=== PATIENT | female | born 1985 | race Caucasian/White ===

== ENCOUNTER 2022-10-30 08:24 | Outpatient (OUT) | payer OTHER, SELFPAY ==
--- NOTE | 2022-10-30 | XR_ITS ---
The [address] [address] Patient Name: MARIA VICTORIA LI MRN: [id number] date: 1985 Sex: F Assigned Patient Location: [facility] Current Patient Location: [facility] Accession/Order Number: [id number] Exam Date: 10/30/2022 08:35 Report Date: 10/30/2022 13:24 At the request of: ANNABELLE ANDUJAR Procedure: XR abdomen 1V EXAMINATION: XR abdomen 1V HISTORY: Kidney Stone N20.0 ; blood in urine COMPARISON: CT abdomen pelvis 08/24/2022 FINDINGS: KIDNEY/URETER - RIGHT: No visible renal or ureteral calcifications. KIDNEY/URETER - LEFT: 5 mm stone within inferior pole of kidney with several adjacent tiny calcifications. PELVIS: No visible ureteral stones. Stable pelvic calcifications favoring phleboliths. BOWEL: No abnormal dilation or deviation. BONES: No acute abnormality. OTHER: Negative. No abnormal gaseous collections. XR/XR abdomen 1V IMPRESSION: 1. Left nephrolithiasis. Electronically authenticated by: TAMIA BAPTISTE Date: 10/30/2022 13:24
== END 2022-10-30 08:25 | disposition home or self-care (01) ==
LOC: RAD 08:27
PROVIDERS: PCP Family Medicine; Visit Provider Urology
DX: N20.0 Calculus of kidney (principal); Z84.1 Family history of disorders of kidney and ureter
CPT/HCPCS: 74018

== ENCOUNTER 2022-10-31 14:19 | Outpatient (OUT) | payer OTHER, SELFPAY ==
[2022-10-31 15:03] LABS: Basophils Percent Auto 0.8 % (0.2-2.0); Eosinophils Absolute Auto 0.1 10^3/uL (0.0-0.7); Eosinophils Percent Auto 1.2 % (0.9-7.0); Hematocrit 39.1 % (36.0-48.0); Immature Granulocytes Abs Auto 0.03 10^3/uL (0.00-0.03); Immature Granulocytes Pct Auto 0.6 % (0.0-0.5); Lymphocytes Percent Auto 38.8 % (20.5-60.0); Mean Corpuscular HGB Conc 33.2 g/dL (29.9-35.2); Mean Corpuscular Hemoglobin 29.8 pg (26.7-34.0); Mean Corpuscular Volume 89.7 fL (81.0-99.0); Mean Platelet Volume 9.7 fL (9.5-13.5); Monocytes Absolute Auto 0.6 10^3/uL (0.3-0.8); Neutrophils Absolute Auto 2.5 10^3/uL (1.4-6.5); Neutrophils Percent Auto 47.6 % (43.0-75.0); Platelet Count 275 10^3/uL (150-450); Red Blood Count 4.36 10^6/uL (4.20-5.40); Red Cell Distribution Width 13.2 % (11.0-15.0); White Blood Count 5.2 10^3/uL (4.0-11.0)
[2022-10-31 15:14] LABS: Anion Gap 14.1; BUN Creatinine Ratio 26.2; Calcium 9.5 mg/dL (8.5-10.1); Carbon Dioxide 23.9 mmol/L (21.0-32.0); Chloride 105 mmol/L (98-107); Estimated GFR (African America >60 (>=60); Estimated GFR (Non-African Ame >60 (>=60); Glucose 76 mg/dL (74-106); Sodium 139 mmol/L (136-145)
[2022-10-31 15:15] LABS: INR 0.98; Partial Thromboplastin Time 29.6 sec (22.3-36.2); Prothrombin Time 10.4 sec (9.0-11.6)
[2022-10-31 15:34] LABS: HCG Qualitative NEGATIVE (NEGATIVE)
== END 2022-10-31 14:20 | disposition home or self-care (01) ==
LOC: PST 14:20
PROVIDERS: PCP Family Medicine; Visit Provider Urology
DX: Z01.812 Encounter for preprocedural laboratory examination (principal); N20.0 Calculus of kidney; G43.909 Migraine, unspecified, not intractable, without status migrainosus
CPT/HCPCS: 36415; 80048; 84703; 85025; 85610; 85730

== ENCOUNTER 2022-11-01 07:01 | Day surgery (SDC) | payer OTHER, SELFPAY ==
[2022-10-31 14:35] VITALS: BP 131/86; PULSE 72; RESP 14; TEMP 36.6; O2SAT 99; BMI 26.6
[2022-11-01] VITALS (10 sets, daily range): BP systolic 110–144; BP diastolic 64–88; PULSE 61–92; RESP 10–20; TEMP 36.4–36.6; O2SAT 94–99; BMI 27.0
[2022-11-01] MEDS: LACTATED RINGER'S SOLUTION 1,000 ML 50 ML IV (07:31)
[2022-11-01] MEDS: CEFAZOLIN SODIUM/DEXTROSE,ISO 1 GM/50 ML IV.SOLN IV (08:09)
[2022-11-01] MEDS: IOHEXOL 300 MG/ML - 50 ML BTL IV (08:30)
--- NOTE | 2022-11-01 08:53 | P.URON_ITS ---
Urology Surgery Operative Note Operative Note Procedure Date: 11/01/22 Time Out Performed: yes Pre-op Diagnosis: #1. Left nephrolithiasis. #2. Left flank pain Post-op Diagnosis: same plus left ureteral stenosis Procedures performed: #1. Left ESWL. #2. Cystoscopy. #3. Left retrograde pyelogram. #4. Left rigid ureteral dilation. #5. Left ureteroscopy. #6. Lasix and of 6 [place] variable length left ureteral stent Anesthesia: other (Gen. by LMA) Primary Surgeon: Celestino Serrano Complications: none Estimated blood loss (mL): 10 Findings: #1. 2, left renal calculi. #2. Distal left ureteral stenosis. Specimens: none Drains: none Indications for Procedures: this lady has 2, left renal calculi which are nonobstructing. She also has left flank pain for several months. Her CAT scan shows no evidence of any left hydroureter or hydroureteronephrosis or uretterolithiasis. She now presents for left renal ESWL and left ureteroscopy and possible stone manipulation and stent placement. She has signed an informed consent for all of these procedures after all of the risks were explained to her in great detail. Some of these risks include bleeding, perinephric hematoma, infection and anesthesia to name a few. Detailed description of Procedure: the patient was brought to the operating room and placed on the Siemens electromagnetic lithotripsy treatment table in the supine position. Timeout was done by all parties in the room. We all agreed upon the patient's identification and the planned procedures for this patient. Gen. anesthesia was administered via LMA. She was then repositioned into the modified dorsal lithotomy position. Alll pressure points were satisfactorily padded. Genitalia were sterilely prepped and draped in the usual fashion. At this time we brought the treatment head to her left flank. We then did fluoroscopy down the course of her left ureter and found no evidence of any stone. We then lined up the larger of the 2 stones within the kidney into the crosshairs. We then began applying shocks at power level II.0 and increased to a maximum power level of 3.5. Intermittent flu oroscopy showed the stone cracked up very well. We applied a total of 1500 shocks to this 1st stone. We then lined up the smaller lower pole stone in the crosshairs. We similarly applied shocks. This also fragmented well. After applying a total of 3000 shocks to the left renal unit this part of the procedure was terminated. I then started by passing a 22 [place] Olympus cystoscope per urethra and into the bladder. Panendoscopy in the bladder showed no evidence of any tumors or stones. There was some bloody urine E flexing from the left ureter as expected. I then passed a 6 [place] open-ended catheter through the scope and cannulated the left ureter. I injected contrast in a retrograde manner. This showed no evidence of any filling defects within the ureter. The kidney illuminated well and filling defects representing tiny pieces of stone were noted. I then removed the catheter and then passed a Glidewire through the scope and in the ureter and up to the kidney. I then used an 8 and 10 [place] rigid dilator to dilate the distal ureter. The distal ureter was stiff. After dilation we had E flux of cloudy debris in the bladder. I then removed the cystoscope and then passed a flexible ureteroscope over the wire and ascended up the ureter. As I was going up the ureter I did not see any tumors or stones. There was quite a bit of inflammatory debris coming down towards the beak of the scope. The ureteroscope was then removed. Because of the distal ureteral stenosis and her persistent left flank pain, I elected to place a stent.I then backloaded the cystoscope over the wire and passed it into the bladder. I then slid a 6 [place] variable length ureteral stent over the wire up into the kidney and remove the wire. There were good curls in the kidney and in the bladder. The bladder was drained of its contents and the scope was then removed. She was then transferred to a [facility] bed and wheeled to PACU in stable condition. She'll be discharged to home later today with a prescription for Keflex 500 mg daily #14 and Vesicare 10 mg daily #14.
--- NOTE | 2022-11-01 10:16 | PC.NURSE ---
Up to bathroom; gait steady. Voided 100cc bloody urine; strained and negative for calculi; c/o lower abdominal stent pain
== END 2022-11-01 10:05 | disposition home or self-care (01) ==
PROVIDERS: PCP Family Medicine; Visit Provider Urology
PROC: (CPT 50590; principal; 2022-11-01 08:20)
DX: N20.0 Calculus of kidney (principal); Q62.10 Congenital occlusion of ureter, unspecified; Z87.440 Personal history of urinary (tract) infections; Z98.51 Tubal ligation status
CPT/HCPCS: 50590; 52332; 52344; C1874; J2704; Q9967

== ENCOUNTER 2022-11-08 18:27 | Outpatient (OUT) | payer OTHER, SELFPAY ==
--- NOTE | 2022-11-08 | XR_ITS ---
The [address] [address] Patient Name: MARIA VICTORIA LI MRN: [id number] date: 1985 Sex: F Assigned Patient Location: [facility] Current Patient Location: Accession/Order Number: [id number] Exam Date: 11/08/2022 18:30 Report Date: 11/09/2022 07:39 At the request of: ANNABELLE ANDUJAR Procedure: XR abdomen 1V EXAMINATION: XR abdomen 1V HISTORY: kidney stones COMPARISON: No relevant comparison available. FINDINGS: KIDNEY/URETER - RIGHT: No visible renal or ureteral calcifications. KIDNEY/URETER - LEFT: Left double-J ureteral stent in normal position. Previously noted nephrolith is not definitively seen PELVIS: No visible ureteral calcifications. Any visible calcifications favor phleboliths. BOWEL: No abnormal dilation or deviation. BONES: No acute abnormality. OTHER: Negative. No abnormal gaseous collections. XR/XR abdomen 1V IMPRESSION: Left ureteral stent Electronically authenticated by: ABDIRASHID CROOK Date: 11/09/2022 07:39
== END 2022-11-08 18:28 | disposition home or self-care (01) ==
LOC: RAD 18:27
PROVIDERS: PCP Family Medicine; Visit Provider Urology
DX: N20.0 Calculus of kidney (principal)
CPT/HCPCS: 74018

== ENCOUNTER 2023-03-09 12:15 | Outpatient (OUT) | payer OTHER, SELFPAY ==
[2023-03-09 12:34] LABS: Basophils Percent Auto 0.7 % (0.2-2.0); Eosinophils Absolute Auto 0.1 10^3/uL (0.0-0.7); Hemoglobin 12.7 g/dL (12.0-16.0); Immature Granulocytes Abs Auto 0.01 10^3/uL (0.00-0.03); Immature Granulocytes Pct Auto 0.2 % (0.0-0.5); Lymphocytes Absolute Auto 2.2 10^3/uL (1.2-3.8); Lymphocytes Percent Auto 36.2 % (20.5-60.0); Mean Corpuscular HGB Conc 33.4 g/dL (29.9-35.2); Mean Corpuscular Hemoglobin 30.1 pg (26.7-34.0); Mean Platelet Volume 9.6 fL (9.5-13.5); Monocytes Absolute Auto 0.4 10^3/uL (0.3-0.8); Monocytes Percent Auto 7.2 % (1.7-12.0); Neutrophils Absolute Auto 3.2 10^3/uL (1.4-6.5); Neutrophils Percent Auto 53.7 % (43.0-75.0); Platelet Count 309 10^3/uL (150-450); Red Blood Count 4.22 10^6/uL (4.20-5.40); Red Cell Distribution Width 13.5 % (11.0-15.0)
[2023-03-09 13:17] LABS: Alanine Aminotransferase 19 U/L (14-59); Albumin Globulin Ratio 1.2; Albumin Level 4.1 g/dL (3.4-5.0); Alkaline Phosphatase 56 U/L (46-116); Anion Gap 14.2; Aspartate Amino Transferase 10 U/L (15-37); BUN Creatinine Ratio 12.9; Bilirubin Total 0.6 mg/dL (0.2-1.0); Calcium 8.4 mg/dL (8.5-10.1); Carbon Dioxide 25.3 mmol/L (21.0-32.0); Chloride 106 mmol/L (98-107); Chol HDL Ratio 3.3; Cholesterol 178 mg/dL (<=200); Estimated GFR (African America >60 (>=60); Estimated GFR (Non-African Ame >60 (>=60); Free T3 2.52 pg/mL (2.18-3.98); Globulin 3.3 g/dL; Glucose 90 mg/dL (74-106); HDL Cholesterol 54 mg/dL (40-60); LDL Cholesterol Calculated 111.8 mg/dL; Potassium 3.5 mmol/L (3.5-5.1); Sodium 142 mmol/L (136-145); Thyroid Stimulating Hormone 1.341 uIU/mL (0.358-3.740); Total Protein 7.4 g/dL (6.4-8.2); Triglycerides 61 mg/dL (<=150); Uric Acid 3.4 mg/dL (2.6-6.0); VLDL CHOLESTEROL 12.2 mg/dL
[2023-03-09 13:21] LABS: Free T4 0.83 ng/dL (0.76-1.46)
== END 2023-03-09 12:16 | disposition home or self-care (01) ==
LOC: LAB 12:18
PROVIDERS: PCP Family Medicine; Visit Provider Family Medicine
DX: R21 Rash and other nonspecific skin eruption (principal); H53.2 Diplopia; K58.9 Irritable bowel syndrome, unspecified; E55.9 Vitamin D deficiency, unspecified; E87.6 Hypokalemia
CPT/HCPCS: 36415; 80053; 80061; 82306; 84439; 84443; 84481; 84550; 85025

== ENCOUNTER 2023-09-21 11:05 | Outpatient (OUT) | payer OTHER, SELFPAY ==
--- OUTSIDE RECORDS SUMMARY | 2023-09-21 11:08 | XMS_ITS | CCD ---
Author Organization [facility] CliniSyma Care Team Providers Care Panel Maker Name Role Phone Mavis Martínez Unavailable Unavailable Karen Harmon V Unavailable Unavailable Karen Harmon V Unavailable [phone] Unavailable Unavailable Akila, Keyana Unavailable Unavailable Unavailable Ms. JESÚS LUNG STUART Attending Unavailable Faustino, Dr. Jones Primary Care UnavailMs. JACQUIE Greer Referring Unavailable Dr. MAVIS MARTÍNEZ Referring Magalie vailable TANYA, Dr. MAVIS DEVRIES Attending Magalie vailable Faustino, Dr. Jones Primary Care UnavailKena Zhu Unavailable KELLE Snider Attending Provider [phone] AKILA, KEYANA Consulting Unavailable DR CRISTI MARTINEZ Primary Care Unavailable AKILA, KEYANA Admitting Unavailable KEYANA WILBURN Attending Unavailable DR CRISTI MARTINEZ Primary Care Unavailable KIEPERT, ITALIA Admitting Unavailable ELIZABETHEPERTITALIA Attending Unavailable ASAT, ITALIA Consulting Unavailable MARTINEZDR COLIN Primary Care Unavailable KIEPERT, ITALIA Admitting Unavailable KIEPERT, ITALIA Attending Unavailable KIEPERT, ITALIA Consulting Unavailable STEVEN GRECO Admitting Unavailable DR CRISTI MARTINEZ Primary Care Unavailable STEVEN GRECO Attending Unavailable STEVEN GRECO Consulting Unavailable ARIANA, MARITZA Consulting Unavailable Dai Vaughn Unavailable NO FAMILY, PHYSICIAN Primary Care Provider Unava ilable TOM Vaughn Attending Provider [phone] CRISTI MARTINEZ Primary Care Physician [phone] TOM Vaughn Attending Provider NO FAMILY, PHYSICIAN Primary Care Provider Unava ilable SEBASTIAN Gustafson Attending Provider [phone] Ella Gustafson Unavailable Kena Snider Attending Unavailable NO FAMILY, PHYSICIAN Primary Care Unavailable Kena Snider Admitting Unavailable NO FAMILY, PHYSICIAN Primary Care Unavailable Dai Vaughn Admitting Unavailable Dai Vaughn Attending Unavailable Ella Gustafson Admitting Unavailable Ella Gustafson Attending Unavailable Faustino Evans MD, Jennifer Primary Care Provider MAVIS MARTÍNEZ Attending Unavailable FAUSTINO Evans, KAREN Primary Care Unavailable MAVIS MARTÍNEZ Attending Unavailable MAVIS MARTÍNEZ Referring Unavailable HARMON V, KAREN Primary Care Unavailable MARTINEZ, CRISTI Cavazos Attending Unavailable PETITTI, SILVESTRE Cavazos Attending Unavailable MARTINEZ, CRISTI A Referring Unavailable PETITTI, SILVESTRE A Attending Unavailable SERRANO, Celestino R Attending Unavailable KELLE ALVARADO Attending UnavailSTEVEN Mckinnno Referring Unavailable SERRANO, Celestino R Attending Unavailable SERRANO, Celestino R Attending Unavailable SERRANO, Celestino R Referring Unavailable SERRANO, Celestino R Admitting Unavailable SERRANO, Celestino R Referring Unavailable SERRANO, Celestino R Attending Unavailable SERRANO, Celestino R Attending Unavailable SERRANO, Celestino R Attending Unavailable Allergies Allergy Classification Reported Allergen(s) Allergy Type Date of Onset Reaction(s) Facility Opioid Agonists (2 sources) Morphine; Translations: [Morphine Sulfate (Concentrate) SOLN] Drug Allergy OR-Neixkixzd-Ve nicolas 170 DO Work Phone: (14 sources) Morphine; Translations: [Morphine Sulfate (Concentrate) SOLN] Drug Allergy 3 anaphylaxis, Weal (disorder), Unknown [facility] (7 sources) Latex Exam Gloves MISC; Translations: [Latex Exam Gloves MISC] Allergy to drug (finding) OB-Iqsdzeefk-Hv nicolas 170 DO Work Phone: (5 sources) Latex rubber gloves Drug allergy [facility] [employer] Other (11 sources) Latex; Translations: [latex] Allergy to substance 6 Weal (disorder), Unknown [facility] (7 sources) Morphine; Translations: [morphine] Drug Allergy 6 Hives [facility] Medications Current Medications Medication Drug Class(es) Dates Sig (Normalized) Sig (Original) cephalexin 250 mg oral capsule (3 sources) Cephalosporin Antibacterial Start: 06-26-2019 take 250 mg by mouth every six hours Cephalexin Active 250 MG PO Q6H 28 7 June 26, 2019 1:00am Norgestimate-Ethi nyl Estradiol (5 sources) Progestin, Estrogen Start: 06-26-2019 Norgestimate-Ethi nyl Estradiol Active TABLET June 26, 2019 1:00am End: 01-31-2023 norgestimate-ethinyl estradi oL (Ortho Tri-Cyclen,Trinessa) 0.18/0.215/0.25 mg-35 mcg (28) tablet Take by mouth. 0 01/31/2023 Discontinued (Therapy completed) TriNessa (28) TA BS Refills: 0 Active 1 ml galcanezumab-gnlm 120 m g/ml auto-injector (5 sources) Start: 05-06-2023 Emgality Prefi lled Pen 120 mg/mL subcutaneous solution Refills(s) 0 Start Date: 05/06/23 Status: Ordered Start: 01-31-2023 galcanezumab ( Emgality Pen) 120 mg/mL auto-injector Indications: Chronic migraine without aura, with intractable migraine, so stated, with status migrainosus Inject 1 Syringe (120 mg) under the skin every 30 (thirty) days. 1 mL 10 01/31/2023 Active Start: 03-13-2022 End: 01-31-2023 inject 120 mg by subcutaneous injection every month Emgality 120 MG/ML Subcutaneous Solution Auto-injector Inject 120 mg (1 pen) under the skin Once a Month as directed. Quantity: 1 Refills: 11 Ordered: 13-Mar-2022 Jesús SPINNING LATHE OPERATOR HYDRAULIC-OPERATIONAL RISK CONSULTANT, Lung Start : 13-Mar-2022 Active Monthly dose, loading dose sent separately. Doxepin, topiramate failed. ibuprofen 800 mg oral tablet (6 sources) Nonsteroidal Anti-inflammatory Drug Start: 06-26-2019 Ibuprofen Active 800 MG PO every 6 to 8 hours June 26, 2019 1:00am Start: 03-05-2018 End: 06-26-2019 take 800 mg by mouth three times daily Ibuprofen Discontinued 800 MG PO Three times daily March 05, 2018 1:00am June 26, 2019 10:09am nitrofurantoin, macrocrystals 25 mg / nitrofurantoin, monohydrate 75 mg oral capsule (3 sources) Nitrofuran Antibacterial Start: 12-06-2022 take 1 capsule by mouth every twelve hours Macrobid 100 MG 1 capsule with food Orally every 12 hrs for 5 days Nov, Active Start: 08-16-2022 take 1 capsule by mo [facility] every twelve hours Macrobid 100 MG 1 capsule with food Orally every 12 hrs for 7 day(s) Jul, Active ondansetron 4 mg oral tablet (11 sources) Serotonin-3 Receptor Antagonist Start: 10-29-2019 End: 01-31-2023 take 1 tablet by mouth every eight hours as needed for nausea and nausea ondansetron (Zofran) 4 mg tablet Indications: Nausea Take 1 tablet (4 mg) by mouth every 8 hours if needed for nausea. 20 tablet 3 01/31/2023 Active Start: 03-05-2018 End: 06-26-2019 take 1 tablet by mouth every eight hours Ondansetron (Zofran Odt) 4 mg tablet,disintegrating Discontinued 4 MG PO Q8H March 05, 2018 1:00am June 26, 2019 10:09am phenazopyridine hydrochloride 200 mg oral tablet (6 sources) Start: 10-13-2022 take 1 tablet by mouth every eight hours Pyridium 200 MG 1 tablet after meals Orally Three times a day for 2 day(s) Nov, Active Start: 08-16-2022 take 1 tablet by bettina every eight hours Pyridium 200 MG 1 tablet after meals Orally Three times a day for 2 day(s) Jul, Active rizatriptan 10 mg oral tablet (10 sources) Serotonin-1b and Serotonin-1d Receptor Agonist Start: 10-29-2019 End: 01-31-2023 take 1 tablet by mouth once as needed, then take 1 tablet by mouth every two hours as needed, then take 3 tablets by mouth every twenty-four hours as needed, then take 1 tablet by mouth every two hours as needed, then take 3 tablets by mouth every twenty-four hours as needed rizatriptan (Maxalt) 10 mg tablet Indications: Chronic migraine without aura, with intractable migraine, so stated, with status migrainosus Take 1 tablet (10 mg) by mouth 1 time if needed for migraine (TAKE 1 TABLET BY MOUTH AT ONSET OF HEADACHE. MAY REPEAT EVERY 2 HOURS NEEDED. MAXIMUM 3 TABLETS IN 24 HOURS). TAKE 1 TABLET BY MOUTH AT ONSET OF HEADACHE. MAY REPEAT EVERY 2 HOURS NEEDED. MAXIMUM 3 TABLETS IN 24 HOURS 9 tablet 6 01/31/2023 Active Start: 10-29-2019 take 1 tablet by bettina th every two hours as needed, then take 3 tablets by mouth every twenty-four hours as needed Rizatriptan Benzoate 10 MG Oral Tablet TAKE 1 TABLET BY MOUTH AT ONSET OF HEADACHE. MAY REPEAT EVERY 2 HOURS NEEDED. MAXIMUM 3 TABLETS IN 24 HOURS Quantity: 9 Refills: 6 Ordered: 01-Mar-2022 Mavis Martínez MD Start : 29-Oct-2019 Active topiramate 25 mg oral tablet (20 sources) Start: 06-10-2023 End: 07-01-2023 take 3 tablets by mouth once daily at bedtime, then take 2 tablets by mouth once daily at bedtime, then take 1 tablet by mouth once daily at bedtime topiramate (Topamax) 25 mg tablet Indications: Chronic migraine without aura, with intractable migraine, so stated, with status migrainosus Take 3 tablets (75 mg) by mouth once daily at bedtime for 7 days, THEN 2 tablets (50 mg) once daily at bedtime for 7 days, THEN 1 tablet (25 mg) once daily at bedtime for 7 days. 42 tablet 0 06/10/2023 07/01/2023 Active Start: 01-31-2023 End: 06-10-2023 take 1 tablet by mouth once daily at bedtime topiramate (Topamax) 100 mg tablet Indications: Chronic migraine without aura, with intractable migraine, so stated, with status migrainosus Take 1 tablet (100 mg) by mouth once daily at bedtime. 90 tablet 1 06/10/2023 06/10/2023 Discontinued (Reorder) Start: 10-29-2022 take 1 mg by mouth twice daily Topamax 100 mg Tab mg tab(s), Oral, BID, Refills(s) 0 Start Date: 10/29/22 Status: Ordered Start: 11-03-2020 take 1 tablet by bettina th at bedtime, then take 2 tablets by mouth at bedtime, then take 3 tablets by mouth at bedtime, then take 4 tablets by mouth at bedtime Topiramate 25 MG Oral Tablet i pill at hs x 1 week then 2 at hs for 1 week then 3 at hs for 1 week then 4 pills at hs Quantity: 120 Refills: 6 Ordered: 03-Nov-2020 Mavis Martínez MD Start : 03-Nov-2020 Active add to 100 mg to titrate up to 200 Start: 10-29-2019 End: 01-31-2023 take 2 tablets by mouth once daily at bedtime topiramate (Topamax) 50 mg tablet Take 2 tablets (100 mg) by mouth once daily at bedtime. 0 10/29/2019 01/31/2023 Discontinued (Reorder) Start: 10-29-2019 take 1 tablet by bettina th at bedtime Topiramate 100 MG Oral Tablet TAKE 1 TABLET AT BEDTIME. Quantity: 30 Refills: 6 Ordered: 02-Dec-2020 Mavis Martínez MD Start : 29-Oct-2019 Active Start: 10-29-2019 take 3 tablets by mo uth at bedtime Topiramate 50 MG Oral Tablet Take 3 tablets at bedtime Quantity: 270 Refills: 3 Ordered: 01-Mar-2022 Mavis Martínez MD Start : 29-Oct-2019 Active Start: 10-29-2019 take 1 tablet by bettina th at bedtime, then take 2 tablets by mouth at bedtime, then take 3 tablets by mouth at bedtime, then take 4 tablets by mouth at bedtime Topiramate 25 MG Oral Tablet i pill at hs x 1 week then 2 at hs for 1 week then 3 at hs for 1 week then 4 pills at hs Quantity: 120 Refills: 6 Mavis Martínez MD Start : 29-Oct-2019 Active traMADol hydrochloride 50 mg oral tablet (3 sources) Opioid Agonist Start: 06-26-2019 Tramadol (Ultr am) 50 mg tablet Active 50 MG PO every 6 to 8 hours 10 June 26, 2019 1:00am Completed/Discontinued Medications Medication Drug Class(es) Dates Sig (Normalized) Sig (Original) acetaminophen 325 mg / butalbital 50 mg / caffeine 40 mg oral tablet (2 sources) Barbiturate, Central Nervous System Stimulant, Methylxanthine Mkviwccmsq-JSPS-M affeine 50-325-40 MG take 1 tablet every 4 to 6 hours if needed for headache MAX OF 2 DAYS PER WEEK Oral for 30 Days Not-Taking acetaminophen 325 mg / HYDROcodone bitartrate 5 mg oral tablet (3 sources) Opioid Agonist Start: 03-05-2018 End: 06-26-2019 take 1 tablet by mouth every six hours Hydrocodone-Aceta minophen ([place]) 5-325 mg tablet Discontinued 1 TAB PO Q6H 15 4 March 05, 2018 June 26, 2019 10:09am amoxicillin 875 mg / clavulanate 125 mg oral tablet (1 source) Penicillin-class Antibacterial Start: 04-07-2021 Amoxicillin-Pot Clavulanate 875-125 MG Oral Tablet Quantity: 20 Refills: 0 Ordered: 07-Apr-2021 DO Start : 07-Apr-2021 Complete benzonatate 200 mg oral capsule (1 source) Non-narcotic Antitussive Start: 04-07-2021 take 1 capsule by mouth three times daily Benzonatate 200 MG Oral Capsule TAKE ONE CAPSULE BY MOUTH THREE TIMES A DAY FOR 14 DAYS Quantity: 42 Refills: 0 Ordered: 07-Apr-2021 DO Start : 07-Apr-2021 Complete ciprofloxacin 500 mg oral tablet (3 sources) Quinolone Antimicrobial Start: 10-13-2022 take 1 tablet by mouth every twelve hours Cipro 500 MG 1 tablet Orally every 12 hrs for 7 days Sep, Not-Taking magnesium oxide 400 mg oral tablet (4 sources) Start: 10-29-2022 End: 06-10-2023 magnesium oxide (Mag-Ox) 400 mg (241.3 mg magnesium) tablet Take by mouth. 0 10/29/2022 06/10/2023 Discontinued (Med List Cleanup) Start: 10-29-2022 take 1 mg by mouth once daily magnesium oxide 400 mg oral capsule mg cap(s), Oral, Daily, Refills(s) 0 Start Date: 10/29/22 Status: Ordered methylPREDNISolone 4 MG Oral Tablet Therapy Pack (1 source) Start: 12-18-2021 methylPREDNISo lone 4 MG Oral Tablet Therapy Pack Quantity: 21 Refills: 0 Ordered: 18-Dec-2021 DO Start : 18-Dec-2021 Complete 0.5 ml SUMAtriptan 12 mg/ml cartridge (9 sources) Serotonin-1b and Serotonin-1d Receptor Agonist Start: 10-29-2019 End: 06-10-2023 SUMAtriptan (Imitrex) 6 mg/0.5 mL injection Inject under the skin once daily as needed. 1 to 2 sq qd prn 0 10/29/2019 06/10/2023 Discontinued (Med List Cleanup) Start: 10-29-2019 SUMAtriptan Wells ccinate 6 MG/0.5ML Subcutaneous Solution Auto-injector 1 to 2 sq qd prn Quantity: 6 Refills: 3 Ordered: 28-Feb-2021 Jesús SPINNING LATHE OPERATOR HYDRAULIC-OPERATIONAL RISK CONSULTANT, Lung Start : 29-Oct-2019 Active triamcinolone acetonide 1 mg/ml topical cream (1 source) Corticosteroid Start: 12-18-2021 Triamcinolone Acetonide 0.1 % External Cream Quantity: 60 Refills: 0 Ordered: 18-Dec-2021 DO Start : 18-Dec-2021 Active TriNessa (28) TABS (4 sources) End: 03-01-2022 TriNessa (28) TABS Quantity: 0 Refills: 0 Ordered: 01-Mar-2022 DO End : 01-Mar-2022 Complete TriNessa (28) TA BS Quantity: 0 Refills: 0 Ordered: 29-Oct-2019 DO Active Problems Active Problems Problem Classification Problem Date Documented Da te Episodic/Chronic Abdominal pain (9 sources) Abdominal pain; Translations: [Abdominal pain, unspecified site] Onset: 08-24-2022 Episodic Calculus of urinary tract (4 sources) Kidney stone; Translations: [Calculus of kidney] Onset: 10-29-2022 Episodic Fluid and electrolyte disorders (2 sources) Acidosis; Translations: [Other disorders of electrolyte and fluid balance, not elsewhere classified] Episodic Headache; including migraine (20 sources) Refractory migraine without aura; Translations: [Migraine] Onset: 02-24-2022 Chronic Other gastrointestinal disorders (5 sources) Diarrhea; Translations: [Diarrhea] Episodic Other nutritional; endocrine; and metabolic disorders (4 sources) Hypomagnesemia; Translations: [Hypomagnesemia] Chronic Other nutritional; endocrine; and metabolic disorders (5 sources) Weight decreased; Translations: [Weight loss, unintentional] Episodic Other screening for suspected conditions (not mental disorders or infectious disease) (9 sources) Thyroid function tests abnormal; Translations: [Abnormal thyroid blood test] Onset: 11-29-2021 Episodic Residual codes; unclassified (7 sources) H/O: Disorder; Translations: [Personal history of other specified diseases] Episodic Residual codes; unclassified (1 source) Family history of kidney disease; Translations: [Family history of disorders of kidney and ureter] Onset: 10-29-2022 Episodic Residual codes; unclassified (2 sources) Family history of renal stone 10-29-2022 Episodic Thyroid disorders (5 sources) Non-toxic nodular goiter; 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, adenomatous, 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 Unclassified (1 source) ACIDOSIS UNSPECIFIED; Translations: [ACIDOSIS UNSPECIFIED] Onset: 03-01-2022 Urinary tract infections (4 sources) Acute cystitis with hematuria; Translations: [Urinary tract infection, site not specified] Onset: 08-28-2022 Episodic Past or Other Problems Problem Classification Problem Date Documented Da te Episodic/Chronic Blindness and vision defects (8 sources) Visual disturbance; Translations: [Unspecified visual disturbance] Onset: 2022 2022 Episodic Genitourinary symptoms and ill-defined conditions (8 sources) Dysuria; Translations: [Hematuria, unspecified] Onset: 08-16-2022 Episodic Nausea and vomiting (3 sources) Nausea; Translations: [Nausea] Onset: 01-31-2023 01-31-2023 Episodic Other skin disorders (1 source) Rash and other nonspecific skin eruption; Translations: [RASH OTH NONSPECIFIC SKIN ERUPTION] Onset: 11-27-2021 Episodic Unclassified (2 sources) Onset: 01-31-2023 01-31-2023 Results Test Name Value Interpretation Reference Range Facility Patient Education 05-06-19 Patient Education Urology 24-Hour Urine Collection Why am I having this test? A 24-hour urine specimen is a lab test that requires you to collect all of your urine for an entire day. This is sometimes called a timed urine test. It can provide more information than a single urine sample. There are many reasons to have this test. Your health care provider may order the test to check for or monitor the following conditions: ? High blood pressure. ? Kidney disease. ? Kidney stones. ? Urinary tract infections. ? . ? Diabetes. How do I prepare for this test? ? You may be asked to follow a special diet during or before the collection period. Follow any instructions from your health care provider. If no special instructions are given, you may eat and drink normally. ? Take txcd-fdf-gnvufsd and prescription medicines only as told by your health care provider. ? Let your health care provider know about any medicines that you are taking, including ljkr-bgb-mhwmcns medicines, vitamins, herbs, and supplements. ? Choose a collection day when you can be at home or when you have a place to store the urine. All urine must be collected during the testing period. How do I do a 24-hour urine collection? ? When you get up in the morning, urinate in the toilet and flush. Write down the time. This will be your start time on the day of collection and your end time on the next morning. ? From the start time on, all of your urine should be kept in the collection jug that you received from the lab. ? If the jug that is given to you already has liquid in it, that is okay. Do not throw out the liquid or rinse out the jug. ? Urinate into a specimen container, such as a urinal or nichole that sits over the toilet. Pour the urine from the container into the collection jug. Be careful not to spill any of the urine. Use the equipment provided by the lab. ? Do not let any toilet paper or stool (feces) get into the jug. This will contaminate the sample. ? Stop collecting your urine 24 hours after you started. Collect the last specimen as close as possible to the end of the 24-hour period. ? Keep the jug cool in an ice chest or keep it in the refrigerator during collection. ? When the 24-hour collection is complete, take the jug to the lab as soon as possible. Keep the jug cool in an ice chest while you are bringing it to the lab. What do the results mean? Talk with your health care provider about what your results mean. Questions to ask your health care provider Ask your health care provider, or the department that is doing the test: ? When will my results be ready? ? How will I get my results? ? What are my treatment options? ? What other tests do I need? ? What are my next steps? Summary ? A 24-hour urine specimen is a lab test that requires you to collect all of your urine for an entire day. ? When you get up in the morning, urinate in the toilet and flush. Write down the time. For the next 24 hours, collect all of your urine in the collection jug that you received from the lab. ? Keep the jug cool while collecting the urine and while bringing it back to the lab. ? Take the jug of urine back to the lab as soon as possible after the collection period has ended. This information is not intended to replace advice given to you by your health care provider. Make sure you discuss any questions you have with your health care provider. Document Revised: 10/13/2021 Document Reviewed: 10/13/2021 [employer] Patient Education ? 2022 [employer]. [facility] Urology Office/Clinic Noteon 05-06-2023 Urology Office/Clinic Note Chief Complaint S/p to Cysto HPI Staff 6 month f/u. Previous dx of kidney stone and family hx of kidney stones. Left ESWL and stent placement done 11/01/22.- No problems or concerns with this procedure Dysuria: _denies Incomplete bladder emptying: denies Hematuria: denies visible blood Frequency: every couple hours Urgency: denies Nocturia: denies Stream: denies hesitation, normal stream Leaking: denies Post void dripping: denies Wearing pads/ Depends: denies Urge incontinence: denies Stress incontinence: denies Incontinence without Sensory Awareness: denies Abdominal pain: denies Flank pain: denies Sexual complaints: denies History of Present Illness Tests reviewed: reviewed UA, KUB I have reviewed the previous health record information and history for this patient from Dr. Serrano. I have reviewed and verified the staff HPI to be accurate for this encounter. Review of Systems PHQ Score Initial Depression Screen Score: 0 SCORE ROS - Provider Constitutional: denies weight loss, denies hot flashes. Eyes: denies eye problems. Gastrointestinal: denies nausea, denies vomiting. Cardiovascular: denies chest pain or angina. Integumentary: no dryness Musculoskeletal: denies musculoskeletal symptoms. ENMT: denies otolaryngeal symptoms. Respiratory: no shortness of breath. Heme/Lymph: denies easy bleeding tendency, denies easy bruising tendency. Psychiatric: no confusion, no anxiety. Genitourinary: See HPI. Physical Exam Vitals & Measurements BP: 122/84 HT: 60 in HT: 153 cm WT: 59 kg WT: 129.8 lb BMI: 25.2 General Appearance: alert , no acute distress, well nourished, well developed female. Genitourinary: bladder nonpalpable, no flank pain. Assessment/Plan 1. Kidney stone (N20.0: Calculus of kidney) First stone episode. CT AP wo contrast 08/24/22 - bilateral nonobstructive intrarenal calculi measuring up to 6mm, L > R kidney. No hydro. KUB 10/30/22 [facility] - 5mm L renal stone within inferior pole with several adjacent tiny calcifications. No R renal or ureteral stones id'd. S/p Cysto/L ESWL/L ureteroscopy/L stent placement 11/01/22. S/p Cysto/L stent removal 11/13/22. Discussed prior imaging results. Advised pt she still has R renal stones but are not visualized on the KUB. Discussed the only treatment option would be R ureteroscopy/laser/st ent, and pt to consider if/when she would like to have this completed. Denies passing any stones/sediments. Urine pH 6.5, not likely uric acid stones. Discussed pt to complete a metabolic workup to determine reasoning for stone formation and to help with stone prevention. Pt agrees with plan. -Complete metabolic workup -KUB in 3-4 mos, pt to complete bowel prep prior Follow-up With When Contact Information PRATIMA MELLO, Celestino R, URL [facility] [address], [place] [id number]- [phone] Additional Instructions: 3-4 mos w/ KUB and metabolic workup Patient Education 24-Hour Urine Collection Nivia Lacy, personally scribed for Dr. Serrano on 05/06/2023 14:15:18. . Documentation recorded by the scribeNivia, accurately reflects the services(s) I performed and decisions made by me. Authenticated by Dr. Serrano on 05/06/2023 14:19:12. Problem List/Past Medical History Ongoing Family history of kidney stone Kidney stone Migraines Historical No qualifying data Procedure/Surgical History Tubal ligation (2012), Appendectomy (2004), Colonoscopy. Medications Emgality Prefilled Pen 120 mg/mL subcutaneous solution magnesium oxide 400 mg oral capsule, Oral, Daily Topamax 100 mg Tab, Oral, BID Allergies Latex (Hives) morphine (Hives) Social History Alcohol - Denies Alcohol Use, 10/29/2022 Substance Abuse - Denies Substance Abuse, 10/29/2022 Tobacco Never (less than 100 in lifetime) Tobacco Use:., 05/06/2023 Family History Asthma: Father. Cancer: Mother. Kidney stone: Mother. Migraine: Mother and Father. Lab Results Ambulatory Point of Care Results Bilirubin Urine Dipstick: Negative (05/06/23 13:35:00) Blood Urine Dipstick: Trace-intact (05/06/23 13:35:00) Glucose Urine Dipstick: Negative (05/06/23 13:35:00) Ketones Urine Dipstick: Negative (05/06/23 13:35:00) Leukocytes Urine Dipstick: Trace (05/06/23 13:35:00) Nitrite Urine Dipstick: Negative (05/06/23 13:35:00) Protein Urine Dipstick: Negative (05/06/23 13:35:00) Specific [place] Urine Dipstick: 1.025 (05/06/23 13:35:00) Urine Appearance Urine Dipstick: Clear (05/06/23 13:35:00) Urine Color Urine Dipstick: Light yellow (05/06/23 13:35:00) Urobilinogen Urine Dipstick: Normal 0.2-1 EU/dl (05/06/23 13:35:00) pH Urine Dipstick: 6.5 (05/06/23 13:35:00) Normal [facility] Comment on above: Result Comment: Elec tronically Signed By: Celestino SERRANO MD\.br\Date and Time Signed: 05/06/23 14:19 EST\.br\Electronically Co-Signed By: Nivia Vieira.br\Date and Time Co-Signed: 05/06/23 14:15 EST Urinalysis - AUTOMATEDon Appearance (U) cloudy [employer] Other Bilirubin Ql (U) Negative [employer] Other Color (U) yellow [employer] Other Glucose Ql (U) Negative [employer] Other Hemoglobin Ql (U) moderate [employer] Other Ketones Ql (U) Negative [employer] Other Leukocyte esterase Test strip Ql (U) small [employer] Other Nitrite Ql (U) Negative [employer] Other pH (U) 6.5 [pH] [employer] Other Protein Ql (U) Negative [employer] Other Specific gravity (U) [Rel density] 1.025 [employer] Other Urobilinogen (U) [Mass/Vol] 0.2 mg/dL [employer] Other Urinalysis - AUTOMATED [employer] Other Urine Cultureon 12-06-2022 Bacteria identified Cx Nom (U) ORGANISM: Escherichia coli (O:ESCCOL) [place] Count 40,000 Aerobic DOMINGO Charge (NMIC56) ---- SUSCEPTIBILITY --- ORGANISM: O:ESCCOL ANTIBIOTIC INTERPRETATION DOMINGO Amikacin S <16 Amoxacillin/K Clavulanate S <8 Ampicillin R >16 Ampicillin/Sulbactam I 1616/8 Aztreonam S <4 Cefazolin S <2 Cefepime S <2 Ceftazidime S <1 Ceftazidime/Avibactam S <4 Ceftolozane/Tazobacta m S <2 Ceftriaxone S <1 Cefuroxime S <4 Ciprofloxacin S <0.25 Ertapenem S <0.5 Gentamicin S <2 Levofloxacin S <0.5 Meropenem S <1 Meropenem/Vaborbactam S <2 Nitrofurantoin S <32 Piperacillin/Tazobact am S <8 Tetracycline S <4 Tigecycline S <2 Tobramycin S <2 Trimethoprim/Sulfamet hoxazole R >2 S = SUSCEPTIBLE I = INTERMEDIATE R = RESISTANT BLANK = DATA NOT AVAILABLE, OR DRUG NOT ADVISABLE OR TESTED R* = RESISTANCE DUE TO EXTENDED SPECTRUM BETA-LACTAMASES ESBL = EXTENDED SPECTRUM BETA-LACTAMASE TFG = THYMIDINE-DEPENDENT STRAIN SALVADOR = BETA-LACTAMASE POSITIVE IB = INDUCIBLE BETA-LACTAMASE. APPEARS IN PLACE OF 'S' WITH SPECIES KNOWN TO POSSESS INDUCIBLE BETA-LACTAMASES. POTENTIALLY THEY MAY BECOME RESISTANT TO ALL B-LACTAM DRUGS. PERFORMED BY: [place] [address] PATHOLOGIST DUKEY RIDER ELVA MCCLURE M.D. [facility] Comment on above: Performed By: #### C UU #### [facility] [address] Consent for Procedure/Surger yon 11-13-2022 Consent for Procedure/Surgery [id number] .00CD:127 [facility] Consent for Treatmenton 10-21 Consent for Treatment [id number] .00CD:127 [facility] IntraOperative Documentson 0 11-13-2022 IntraOperative Documents [id number] .00CD:127 [facility] Main OR Intraoperative Recor don 11-13-2022 Main OR Intraoperative Record IntraOp Document Type FTURO Summary Primary Physician: Celestino SERRANO MD Finalized Date/Time: 11/13/22 13:39:22 Pt. Name: MARIA VICTORIA LI/Sex: 1985 Female Med Rec #: [id number] Physician: Celestino SERRANO MD Financial #: [id number] Pt. Type: O Room/Bed: / Admit/Disch: 11/13/22 12:56:32 - Institution: Case Times FTURO Entry 1 Patient Times In Room 11/13/22 13:31:00 Out Room 11/13/22 13:44:00 Procedure Times Start 11/13/22 13:34:00 Stop 11/13/22 13:39:00 Anesthesia Times Last Modified By: Joyce HERNANDEZ, DARLENE, Betsy 11/13/22 13:39:14 Case Attendance FTURO Entry 1 Entry 2 Entry 3 Case Attendee PRATIMA MELLO, Celestino Cook RN, CNOR, Elie LE, Cielo Meyer Role Performed Surgeon - Primary Wireless Sales Manager - Primary Scrub - Primary Time In 11/13/22 13:31:00 11/13/22 13:31:00 11/13/22 13:31:00 Time Out 11/13/22 13:44:00 11/13/22 13:44:00 11/13/22 13:44:00 Procedure CYSTOSCOPY LOCAL WITH CYSTOSCOPY LOCAL WITH CYSTOSCOPY LOCAL WITH STENT REMOVAL(Left) STENT REMOVAL(Left) STENT REMOVAL(Left) Comments Last Modified By: Joyce HERNANDEZ, CNOR, Joyce HERNANDEZ, CNOR, Joyce HERNANDEZ, RICKYOR, Betsy 11/13/22 Betsy 11/13/22 Betsy 11/13/22 13:39:15 13:39:15 13:39:15 Entry 4 Case Attendee Agustin Mann Role Performed Staff - Other Time In 11/13/22 13:31:00 Time Out 11/13/22 13:44:00 Procedure CYSTOSCOPY LOCAL WITH STENT REMOVAL(Left) Comments orienting Last Modified By: Joyce HERNANDEZ, DARLENE, Betsy 11/13/22 13:39:15 Surgical Procedures FTURO Entry 1 Procedure Description Procedure CYSTOSCOPY LOCAL WITH Modifiers Left STENT REMOVAL Surgeon Description CYSTO LEFT STENT REMOVAL Primary Procedure Yes Primary Surgeon Celestino SERRANO MD Start 11/13/22 13:34:00 Stop 11/13/22 13:39:00 Anesthesia Type Local Surgical Service Urology Wound Class 2 - Clean-Contaminated Last Modified By: Joyce HERNANDEZ, RICKYOR, Betsy 11/13/22 13:39:18 General Case Data FTURO Pre-Care Text: Classifies surgical wound, implements aseptic technique, initiates traffic control Entry 1 Case Information OR URO 1 FT Case Level None Wound Class 2 - Clean-Contaminated Specialty Urology Preop Diagnosis STATUS POST LEFT STENT Postop Same As Preop Yes PLACEMENT Postop Diagnosis STATUS POST LEFT STENT Outcomes Met? Yes PLACEMENT Last Modified By: DARLENE Cook RN, Ruthann 11/13/22 13:36:04 Post-Care Text: The patient is free from signs and symptoms of infection EU IntraOp - FTURO Pre-Care Text: Implements protective measures prior to operative or invasive procedure, confirms identity before the operative or invasive procedure, verifies operative procedure, surgical site, and laterality Entry 1 EU Perioperative Protocols Procedure(s) CYSTOSCOPY LOCAL WITH Patient Identity Birthday, ID Band STENT REMOVAL(Left) Verified (select at Check, Patient least 2): Participation Consents / H and P HandP, Surgery/Procedure Operative Site N/A Verified Consent Marking Verified Surgical Site Yes Laterality Verified Yes Verified Procedure Verified Yes Correct Patient Yes Position Verified Availability Equipment, Medication Time Out PRATIMA MELLO, Celestino Aleman, Verified (If Participants DARLENE Cook RN, Applicable) Elie Meyer CST, Cielo Cavazos, Agustin Mann Time Out Complete 11/13/22 13:31:00 Allergies Reviewed? Yes Allergies Reviewed Self/Patient With Body Position Frog Legged Prep Area perineal area Prep Agents Betadine Solution Skin. Condition Unable to Visualize Additional None Specimens Collected Vitals - EU Blood Pressure 147/82 Pulse 60 bpm Respirations SPO2 EBL 0 IandO - EU Total Intake 0 mL Total Output 0 mL Outcomes Met? Yes Last Modified By: DARLENE Cook RN, Ruthann 11/13/22 13:38:55 Post-Care Text: The patient is free from signs and symptoms of injury caused by extraneous objects Sign Out FTURO Entry 1 Before Patient Leaves OR Nurse verbally Yes Nurse verbally n/a confirms with the confirms with the team the name of team that the procedure(s) instrument, sponge, recorded and needle counts are correct (or N/A) Nurse verbally n/a Nurse verbally n/a confirms with the confirms with the team how the team whether there specimen is labeled are any equipment (including patient problems to be name), if applicable addressed Sign Out Complete 11/13/22 13:42:00 Last Modified By: DARLENE Cook RN, Ruthann 11/13/22 13:39:07 Case Comments Finalized By: Joyce HERNANDEZ, Betsy COLON Document Signatures Signed By: DARLENE Cook RN, Ruthann 11/13/22 13:39 Normal [facility] Main OR Preoperative Recordo n 11-13-2022 Main OR Preoperative Record Holding Area Document Type FTURO Summary Primary Physician: Celestino SERRANO MD Finalized Date/Time: 11/13/22 13:35:37 Pt. Name: MARIA VICTORIA LI/Sex: 1985 Female Med Rec #: [id number] Physician: Celestino SERRANO MD Financial #: [id number] Pt. Type: O Room/Bed: / Admit/Disch: 11/13/22 12:56:32 - Institution: Case Times Holding FTURO Pre-Care Text: Verifies consent for planned procedure, identifies individual values and wishes concerning care, includes family members in perioperative teaching Secures patient's records' belongings, and valuables, maintains patient's dignity and privacy, and maintains patient confidentiality Entry 1 In Holding 11/13/22 13:03:00 Outcomes Met? Yes Last Modified By: Marjan Mcintyre LPN 11/13/22 13:03:29 Post-Care Text: The patient participates in decisions affecting his or her perioperative plan of care The patient's right to privacy is maintained Surgery Checklist FTURO Entry 1 Entry 2 Patient Birthday, ID Band Birthday, ID Band Identification: Check, Patient Check, Patient Participation Participation Procedure Surgical Consent, With Surgical Consent, With Verification: Patient Patient NPO after Midnight: n/a n/a Date/Time: Personal Items: Contact Lenses, Jewelry Contact Lenses, Jewelry Personal Items rings x 3. necklace , rings x 3. necklace , Comment: watch, contact lenses watch, contact lenses Limitations: Complaints of Pain: Yes Yes Pain Comment: pressure in left lower pressure in left lower abd. abd. Skin Integrity Intact, Hough, Warm, & Intact, Hough, Warm, & Dry Dry Vitals - EU Blood Pressure 147/85 147/85 Pulse 60 bpm 60 bpm Respirations 16 br/min 16 br/min SPO2 100 % 100 % Additional Specimens Collected Specimens Comment Residual Amount - Post Void RN Reviewed Yes Last Modified By: Marjan Mcintyre LPN, RN, CNOR, 11/13/22 13:05:48 Betsy 11/13/22 13:35:33 General Comments: Temp 36.7 Finalized By: DARLENE Cook RN, Ruthann Document Signatures Signed By: Marjan Mcintyre LPN 11/13/22 13:05 DARLENE Cook RN, Ruthann 11/13/22 13:35 Normal [facility] Operative Reporton Operative Report Patient: MARIA VICTORIA LI Age: 36 years Sex: Female : 1985 Associated Diagnoses: None Author: Celestino SERRANO MD Procedure Operative Information Details: Date/ Time: 11/13/2022 13:40:00. Pre-Op Dx: Foreign Body in Bladder - T19.1XXA. Post-Op Dx: Same. Anesthesia Type: Local. Procedure: Local Cystoscopy with Stent Removal. Complications: None. Risks/Benefits/Inform ed Consent: Surgical risks, benefits, details of the procedure have been explained to the patient, Full informed consent has been obtained. Intraoperative Information Prepped: The patient was placed in a modified dorso-lithotomy position, The patient was prepped with the Betadine solution. Anesthesia: 2% Xylocaine Jelly per urethra. Procedure: Cystoscopy and Left Stent Removal, The flexible Cystoscope was passed in retrograde fashion into the bladder without difficulty, The bladder was viewed in entirety and found to be without tumors or stones, Mild inflammation was seen surrounding the orifice with the stent seen protruding from it, The stent was then grasped and removed in its entirety. Specimens Removed: None. Devices Implanted: None. Postoperative Information Discharge: The patient tolerated the procedure well and was subsequently discharged home. Normal [facility] Comment on above: Result Comment: Elec tronically Signed By: Celestino SERRANO MD\.br\Date and Time Signed: 11/13/22 13:40 EDT Outpatient Surgery Discharge Instructionon 11-13-2022 Outpatient Surgery Discharge Instruction [id number] .00CD:127 Normal [facility] RAD - MISCon 11-09-2022 RAD - MISC [id number] .00CD:127 [facility] Pre-Certification Formon Pre-Certification Form [id number] .00CD:127 [facility] Pre-Certification Formon Pre-Certification Form [id number] .00CD:127 [facility] Lab Reportson 11-02-2022 Lab Reports [id number] .00CD:127 [facility] RAD - MISCon 11-02-2022 RAD - MISC [id number] .00CD:127 [facility] Consent for Procedure/Surger yon 11-01-2022 Consent for Procedure/Surgery [id number] .00CD:127 [facility] Operative Reporton Operative Report [id number] .00CD:127 [facility] ED Note-Physicianon 11-01-19 23 ED Note-Physician [id number] .00CD:127 [facility] Formson 10-30-2022 Forms [id number] .00CD:127 [facility] Ambulatory Visit Summaryon 0 10-29-2022 Ambulatory Visit Summary MARIA VICTORIA LI :1985 Visit Date:10/29/2022 Ambulatory Visit Instructions Your Diagnosis Kidney stone Family history of kidney stone Tests Performed Urnls Dip Stick Auto w/o Microscopy POC 51370 XR Abdomen 1 View -- Results Pending -- Please visit your patient portal for your results or contact your primary care physician. Your Care Team Attending Physician - Celestino SERRANO MD Primary Care Physician - CRISTI MARTINEZ MD Referring Physician - STEVEN MEYER This Is Your Medications List Contact prescribing physician if questions or concerns magnesium oxide (magnesium oxide 400 mg oral capsule) topiramate (Topamax 100 mg Tab) Procedures Performed Tubal ligation (2012), Appendectomy (2004), Colonoscopy. Discharge Vitals Heart Rate (Peripheral) 79 Respiratory Rate 16 Blood Pressure 121/82 Height 153 cm Height 60 in Weight 59 kg Weight 129.8 lb BMI 25.2 What to do next You Need to Schedule the Following Appointments Follow Up with PRATIMA MELLO, DAMIEN Slaughter When: Comments: [facility] Where: [facility] [address] [place] [address] [phone] Medications What How Much When Instructions Unchanged magnesium oxide (magnesium oxide 400 mg oral capsule) Every day Contact prescribing physician if questions or concerns Unchanged topiramate (Topamax 100 mg Tab) 2 times a day Contact prescribing physician if questions or concerns Test Results Urnls Dip Stick Auto w/o Microscopy POC 51078 (10/29/2022) Bilirubin Urine Dipstick - Negative Blood Urine Dipstick - Trace-lysed Glucose Urine Dipstick - Negative Ketones Urine Dipstick - Negative Leukocytes Urine Dipstick - Negative Nitrite Urine Dipstick - Negative Protein Urine Dipstick - Negative Specific [place] Urine Dipstick - 1.020 Urine Appearance Urine Dipstick - Clear Urine Color Urine Dipstick - Yellow Urobilinogen Urine Dipstick - Normal 0.2-1 EU/dl pH Urine Dipstick - 6 Allergies Latex (Hives) morphine (Hives) Problems Ongoing - Any problem that you are currently receiving treatment for. Family history of kidney stone Kidney stone Migraines Education Materials Kidney Stones Kidney stones are solid, rock-like deposits that form inside of the kidneys. The kidneys are a pair of organs that make urine. A kidney stone may form in a kidney and move into other parts of the urinary tract, including the tubes that connect the kidneys to the bladder (ureters), the bladder, and the tube that carries urine out of the body (urethra). As the stone moves through these areas, it can cause intense pain and block the flow of urine. Kidney stones are created when high levels of certain minerals are found in the urine. The stones are usually passed out of the body through urination, but in some cases, medical treatment may be needed to remove them. What are the causes? Kidney stones may be caused by: ? A condition in which certain glands produce too much parathyroid hormone (primary hyperparathyroidism), which causes too much calcium buildup in the blood. ? A buildup of uric acid crystals in the bladder (hyperuricosuria). Uric acid is a chemical that the body produces when you eat certain foods. It usually exits the body in the urine. ? Narrowing (stricture) of one or both of the ureters. ? A kidney blockage that is present at (congenital obstruction). ? Past surgery on the kidney or the ureters, such as gastric bypass surgery. What increases the risk? The following factors may make you more likely to develop this condition: ? Having had a kidney stone in the past. ? Having a family history of kidney stones. ? Not drinking enough water. ? Eating a diet that is high in protein, salt (sodium), or sugar. ? Being overweight or obese. What are the signs or symptoms? Symptoms of a kidney stone may include: ? Pain in the side of the abdomen, right below the ribs (flank pain). Pain usually spreads (radiates) to the groin. ? Needing to urinate frequently or urgently. ? Painful urination. ? Blood in the urine (hematuria). ? Nausea. ? Vomiting. ? Fever and chills. How is this diagnosed? This condition may be diagnosed based on: ? Your symptoms and medical history. ? A physical exam. ? Blood tests. ? Urine tests. These may be done before and after the stone passes out of your body through urination. ? Imaging tests, such as a CT scan, abdominal X-ray, or ultrasound. ? A procedure to examine the inside of the bladder (cystoscopy). How is this treated? Treatment for kidney stones depends on the size, location, and makeup of the stones. Kidney stones will often pass out of the body through urination. You may need to: ? Increase your fluid intake to help pass the stone. In some cases, you may be given fluids through an IV and may need to be monitored at t (more content not included)... Normal [facility] Patient Educationon 10-30-19 23 Patient Education Urology Kidney Stones Kidney stones are solid, rock-like deposits that form inside of the kidneys. The kidneys are a pair of organs that make urine. A kidney stone may form in a kidney and move into other parts of the urinary tract, including the tubes that connect the kidneys to the bladder (ureters), the bladder, and the tube that carries urine out of the body (urethra). As the stone moves through these areas, it can cause intense pain and block the flow of urine. Kidney stones are created when high levels of certain minerals are found in the urine. The stones are usually passed out of the body through urination, but in some cases, medical treatment may be needed to remove them. What are the causes? Kidney stones may be caused by: ? A condition in which certain glands produce too much parathyroid hormone (primary hyperparathyroidism), which causes too much calcium buildup in the blood. ? A buildup of uric acid crystals in the bladder (hyperuricosuria). Uric acid is a chemical that the body produces when you eat certain foods. It usually exits the body in the urine. ? Narrowing (stricture) of one or both of the ureters. ? A kidney blockage that is present at (congenital obstruction). ? Past surgery on the kidney or the ureters, such as gastric bypass surgery. What increases the risk? The following factors may make you more likely to develop this condition: ? Having had a kidney stone in the past. ? Having a family history of kidney stones. ? Not drinking enough water. ? Eating a diet that is high in protein, salt (sodium), or sugar. ? Being overweight or obese. What are the signs or symptoms? Symptoms of a kidney stone may include: ? Pain in the side of the abdomen, right below the ribs (flank pain). Pain usually spreads (radiates) to the groin. ? Needing to urinate frequently or urgently. ? Painful urination. ? Blood in the urine (hematuria). ? Nausea. ? Vomiting. ? Fever and chills. How is this diagnosed? This condition may be diagnosed based on: ? Your symptoms and medical history. ? A physical exam. ? Blood tests. ? Urine tests. These may be done before and after the stone passes out of your body through urination. ? Imaging tests, such as a CT scan, abdominal X-ray, or ultrasound. ? A procedure to examine the inside of the bladder (cystoscopy). How is this treated? Treatment for kidney stones depends on the size, location, and makeup of the stones. Kidney stones will often pass out of the body through urination. You may need to: ? Increase your fluid intake to help pass the stone. In some cases, you may be given fluids through an IV and may need to be monitored at the hospital. ? Take medicine for pain. ? Make changes in your diet to help prevent kidney stones from coming back. Sometimes, medical procedures are needed to remove a kidney stone. This may involve: ? A procedure to break up kidney stones using: ? A focused beam of light (laser therapy). ? Shock waves (extracorporeal shock wave lithotripsy). ? Surgery to remove kidney stones. This may be needed if you have severe pain or have stones that block your urinary tract. Follow these instructions at home: Medicines ? Take [id number]-dlvmbuy and prescription medicines only as told by your health care provider. ? Ask your health care provider if the medicine prescribed to you requires you to avoid driving or using heavy machinery. Eating and drinking ? Drink enough fluid to keep your urine pale yellow. You may be instructed to drink at least 8?10 glasses of water each day. This will help you pass the kidney stone. ? If directed, change your diet. This may include: ? Limiting how much sodium you eat. ? Eating more fruits and vegetables. ? Limiting how much animal protein?such as red meat, poultry, fish, and eggs?you eat. ? Follow instructions from your health care provider about eating or drinking restrictions. General instructions ? Collect urine samples as told by your health care provider. You may need to collect a urine sample: ? 24 hours after you pass the stone. ? 8?12 weeks after passing the kidney stone, and every 6?12 months after that. ? Strain your urine every time you urinate, for as long as directed. Use the strainer that your health care provider recommends. ? Do not throw out the kidney stone after passing it. Keep the stone so it can be tested by your health care provider. Testing the makeup of your kidney stone may help prevent you from getting kidney stones in the future. ? Keep all follow-up visits as told by your health care provider. This is important. You may need follow-up X-rays or ultrasounds to make sure that your stone has passed. How is this prevented? To prevent another kidney stone: ? Drink enough fluid to keep your urine pale yellow. This is the best way to prevent kidney stones. ? Eat a healthy diet and follow (more content not included)... Normal [facility] Urology Office/Clinic Noteon 10-29-2022 Urology Office/Clinic Note Chief Complaint kidney stones and hematuria HPI Staff Referral for hematuria and kidney stones. Was seen at the [facility] ED on 08/24/22 with complaints of bilateral flank pain. CT done at that time showed bilateral intrarenal calculi measuring up to 6mm nonobstructing. Pt states that she has been treated 3x since July for UTI's at Urgent care. She states that she has not had recurrent UTI's for about 17 years. This is her first episode of kidney stones ever. Dysuria: not today but in the past couple of months she had experienced burning Incomplete bladder emptying: no Hematuria: states that she still is seeing blood in her urine off and on Frequency: every couple hours Urgency: no Nocturia: 1x Stream: no straining good stream Leaking: no Post void dripping: no Wearing pads/ Depends: no Urge incontinence: no Stress incontinence: no Incontinence without Sensory Awareness: no Abdominal pain: no Flank pain: left side constant Sexual complaints: no History of Present Illness Tests reviewed: reviewed UA, CT scan, external records I have reviewed the previous health record information and history for this patient from external providers_. I have reviewed and verified the staff HPI to be accurate for this encounter. There have been no associated fever or chills. Review of Systems PHQ Score Initial Depression Screen Score: 0 ROS - Provider Constitutional: denies weight loss, denies hot flashes. Eyes: denies eye problems. Gastrointestinal: denies nausea, denies vomiting. Cardiovascular: denies chest pain or angina. Integumentary: no dryness Musculoskeletal: denies musculoskeletal symptoms. ENMT: denies otolaryngeal symptoms. Respiratory: no shortness of breath. Heme/Lymph: denies easy bleeding tendency, denies easy bruising tendency. Psychiatric: no confusion, no anxiety. Genitourinary: See HPI. Physical Exam Vitals & Measurements HR: 79(Peripheral) RR: 16 BP: 121/82 HT: 60 in HT: 153 cm WT: 59 kg WT: 129.8 lb BMI: 25.2 General Appearance: alert , no acute distress, well nourished, well developed female. Head: normocephalic . Eyes: normal orbit and globe. ENMT: normal examination of external ears. Chest: Lungs CTA, respirations non labored . Cardiovascular: regular rate and rhythm. Abdomen: soft, non distended, mild L cva tenderness, no mass or organomegaly, no hernia. Genitourinary: bladder nonpalpable, no flank tenderness. Lymph Nodes: unremarkable palpation of the cervical area. Skin: warm, dry, no bruising. Psychiatric: cooperative, affect appropriate for age, normal judgement, euthymic mood. Assessment/Plan 1. Kidney stone (N20.0: Calculus of kidney) CT AP wo contrast 08/24/22 - bilateral nonobstructive intrarenal calculi measuring up to 6mm, L > R kidney. No hydro. Pt denies passing any stones. Pt states she has had constant left flank pain since July, which worsens at times. Discussed CT scan may not have picked up a possible tiny L ureteral stone. Reports she has had 3 UTIs since July, treated with abx. Educated pt kidney stones can contribute to this. Recommended pt to increase fluid intake to ten to twelve 16oz bottles a day; preferably water, clear pop, and sugar free lemonade. Discussed management options including medical expulsive therapy x 4-6 week vs intervention including extracorporeal shockwave lithotripsy vs ureteroscopy with laser lithotripsy/stone basket extraction possible stent. Risks/benefits of each were discussed including but not limited to: MET- renal damage, pain or infection; ESWL- bleeding, hematoma, pain, infection, inability to break up the stone, ureteral obstruction, cardiac arrhythmias, damage to surrounding structures and need for additional procedures; ureteroscopy - bleeding, pain, infection, damage to surrounding structures, ureteral perforation, stricture, inability to treat the stone and need for additional procedures. If a stent is placed, pt understands this is not permanent and needs to be removed or exchanged within 3 months to prevent encrustation, infection, permanent renal damage and need for more invasive procedures. once the L side is done, she will need R eswl vs ureteroscopy/laser. Discussed metabolic w/u in the future to determine reason for stone formation. First episode of kidney stones. Never a smoker. Reports regular BMs. UA today shows trace-lysed blood, negative for infection. -Dietary modifications -Pt to do bowel preparation prior to getting KUB. If stones are visible, pt to get left ESWL and L ureteroscopy due to her constant L sided pain. All questions/concerns were discussed. Pt to call the office if she encounters any issues prior. Pt acknowledges understanding. 2. Family history of kidney stone (Z84.1: Family history of disorders of kidney and ureter) Mother. Follow-up With When Contact Information Celestino SERRANO MD, URL [facility] [address], [place] [address]- [phone] (more content not included)... Normal [facility] Comment on above: Result Comment: Elec tronically Signed By: Celestino SERRANO MD\.br\Date and Time Signed: 10/29/22 10:06 EDT\.br\Electronically Co-Signed By: Nivia Vieira\.br\Date and Time Co-Signed: 10/29/22 10:01 EDT Urine Cultureon 10-14-2022 Bacteria identified Cx Nom (U) Reason for Exam Dysuria Urine ORGANISM: Escherichia coli (O:ESCCOL) [place] Count 75,000 Aerobic DOMINGO Charge (NMIC56) ---- SUSCEPTIBILITY --- ORGANISM: O:ESCCOL ANTIBIOTIC INTERPRETATION DOMINGO Amikacin S <16 Amoxacillin/K Clavulanate S <8 Ampicillin R >16 Ampicillin/Sulbactam S 88/4 Aztreonam S <4 Cefazolin S <2 Cefepime S <2 Ceftazidime S <1 Ceftazidime/Avibactam S <4 Ceftolozane/Tazobacta m S <2 Ceftriaxone S <1 Cefuroxime S <4 Ciprofloxacin S <0.25 Ertapenem S <0.5 Gentamicin S <2 Levofloxacin S <0.5 Meropenem S <1 Meropenem/Vaborbactam S <2 Nitrofurantoin S <32 Piperacillin/Tazobact am S <8 Tetracycline S <4 Tigecycline S <2 Tobramycin S <2 Trimethoprim/Sulfamet hoxazole R >2 S = SUSCEPTIBLE I = INTERMEDIATE R = RESISTANT BLANK = DATA NOT AVAILABLE, OR DRUG NOT ADVISABLE OR TESTED R* = RESISTANCE DUE TO EXTENDED SPECTRUM BETA-LACTAMASES ESBL = EXTENDED SPECTRUM BETA-LACTAMASE TFG = THYMIDINE-DEPENDENT STRAIN SALVADOR = BETA-LACTAMASE POSITIVE IB = INDUCIBLE BETA-LACTAMASE. APPEARS IN PLACE OF 'S' WITH SPECIES KNOWN TO POSSESS INDUCIBLE BETA-LACTAMASES. POTENTIALLY THEY MAY BECOME RESISTANT TO ALL B-LACTAM DRUGS. PERFORMED BY: [facility] [address] [id number] PATHOLOGIST DUKEY RIDER ELVA MCCLURE M.D. Normal [facility] Comment on above: Performed By: #### C UU #### [facility] [address] [id number] [facility] Urine culture routineOrdered By: Dai Vaughn on 10-14-2022 Bacteria identified Cx Nom (U) Escherichia coli [facility] Urinalysis - AUTOMATEDon Appearance (U) cloudy [employer] Other Bilirubin Ql (U) Negative [employer] Other Color (U) dark yellow [employer] Other Glucose Ql (U) Negative [employer] Other Hemoglobin Ql (U) large [employer] Other Ketones Ql (U) Negative [employer] Other Leukocyte esterase Test strip Ql (U) small [employer] Other Nitrite Ql (U) Positive [employer] Other pH (U) 5.5 [pH] [employer] Other Protein Ql (U) 100 [employer] Other Specific gravity (U) [Rel density] >=1.030 [employer] Other Urobilinogen (U) [Mass/Vol] 0.2 mg/dL [employer] Other Urinalysis - AUTOMATED [employer] Other CT ABD/PELVIS WO CONon 08-25 CT ABD/PELVIS WO CON EXAMINATION:CT ABD/PELVIS WO CON INDICATION:CALCULUS OF KIDNEY COMPARISON:None TECHNIQUE:Multiple thin section transaxial slices were acquired through the abdomen and pelvis without intravenous contrast. Coronal and sagittal reconstructed images were reviewed. Oral contrastWas not administered. FINDINGS: LOWER CHEST: The lower chest is unremarkable. LIVER: The liver is unremarkable. GALLBLADDER AND BILIARY SYSTEM: No obvious ductal dilation. No calcified stones. SPLEEN: The spleen is unremarkable. PANCREAS: The pancreas is unremarkable. ADRENAL GLANDS: The adrenal glands are unremarkable. KIDNEYS AND URETERS: There is no hydronephrosis of the kidneys.There are nonobstructive bilateral intrarenal calculi measuring up to 6 mm. There are no obstructing urologic calcifications within either ureter. VASCULATURE: Vascularity is unremarkable. PERITONEUM/RETROPERIT ONEUM: Peritoneum/retroperit oneum is unremarkable. LYMPH NODES: No suspicious lymphadenopathy. GASTROINTESTINAL TRACT: The bowel is normal in caliber.No acute inflammatory process is associated with the bowel.The appendix is absent. BLADDER: The urinary bladder is unremarkable. REPRODUCTIVE SYSTEM: Reproductive system is unremarkable. BODY WALL: Unremarkable. BONES: Osseous structures are unremarkable. IMPRESSION: 1. There are bilateral nonobstructive intrarenal calculi measuring up to 6 mm, left kidney greater than right. No definitive obstructive uropathy is present. Electronically authenticated by: MARITZA LANE Date: 2022-08-24 22:[address] [facility] CBC AUTO DIFFon 08-24-2022 BASO # 0.1 103/ul Normal 0.0-0.1 [facility] Comment on above: Performed By: #### C BC #### [facility] [address] [place], [place] [address] Dr. Carolina Rojo Basophils/100 WBC (Bld) 0.6 % Normal 0.2-2.0 [facility] Comment on above: Performed By: #### C BC #### [facility] [address] [place], [place] [address] Dr. Carolina Rojo EO # 0.1 103/ul Normal 0.0-0.7 [facility] Comment on above: Performed By: #### C BC #### [facility] [address] [place] [address] Dr. Carolina Rojo Eosinophils/100 WBC (Bld) 0.7 % Critically low 0.9-7.0 [facility] Comment on above: Performed By: #### C BC #### [facility] [address] [place] [address] Dr. Carolina Rojo Erythrocyte distribution width (RBC) [Ratio] 13.6 % Normal 11.0-15.0 [facility] Comment on above: Performed By: #### C BC #### [facility] [address] [place] [address] Dr. Carolina Rojo Hematocrit (Bld) [Volume fraction] 38.1 % Normal 36.0-48.0 [facility] Comment on above: Performed By: #### C BC #### [facility] [address] [place] [address] Dr. Carolina Rojo Hemoglobin (Bld) [Mass/Vol] 12.8 g/dL Normal 12.0-16.0 [facility] Comment on above: Performed By: #### C BC #### [facility] [address] [place] [address] Dr. Carolina Rojo IG # 0.03 10e3/ul Normal 0.00-0.03 [facility] Comment on above: Performed By: #### C BC #### [facility] [address] [place] [address] Dr. Carolina Rojo IG % 0.4 % Normal 0.0-0.[address] [facility] Comment on above: Performed By: #### C BC #### [facility] [address] [place] [address] Dr. Carolina Rojo LYMPH # 2.8 103/ul Normal 1.2-3.[address] [facility] Comment on above: Performed By: #### C BC #### [facility] [address] [place] [address] Dr. Carolina Rojo Lymphocytes/100 WBC (Bld) 33.4 % Normal 20.5-60.0 [facility] Comment on above: Performed By: #### C BC #### [facility] [address] [place] [address] Dr. Carolina Rojo MANUAL DIFF REQ NO Normal [facility] Comment on above: Performed By: #### C BC #### [facility] [address] [place] [address] Dr. Carolina Rojo MCH (RBC) [Entitic mass] 29.8 pg Normal 26.7-34.0 [facility] Comment on above: Performed By: #### C BC #### [facility] [address] [place] [address] Dr. Carolina Rojo MCHC (RBC) [Mass/Vol] 33.6 g/dL Normal 29.9-35.2 [facility] Comment on above: Performed By: #### C BC #### [facility] [address] [place] [address] Dr. Carolina Rojo MCV (RBC) [Entitic vol] 88.6 fL Normal 81.0-99.0 [facility] Comment on above: Performed By: #### C BC #### [facility] [address] [place] [address] Dr. Carolina Rojo MONO # 0.5 103/ul Normal 0.3-0.8 [facility] Comment on above: Performed By: #### C BC #### [facility] [address] [place] [address] Dr. Carolina Rojo Monocytes/100 WBC (Bld) 6.0 % Normal 1.7-12.0 [facility] Comment on above: Performed By: #### C BC #### [facility] [address] [place] [address] Dr. Carolina Rojo NEUT # 4.9 103/ul Normal 1.4-6.[address] [facility] Comment on above: Performed By: #### C BC #### [facility] [address] [place] [address] Dr. Carolina Rojo Neutrophils/100 WBC (Bld) 58.9 % Normal 43.0-75.0 [facility] Comment on above: Performed By: #### C BC #### [facility] [address] [place] [address] Dr. Carolina Rojo Platelet mean volume (Bld) [Entitic vol] 9.8 fL Normal 9.5-13.5 [facility] Comment on above: Performed By: #### C BC #### [facility] [address] [place] [address] Dr. Carolina Rojo PLT 253 103/ul Normal 150-[address] [facility] Comment on above: Performed By: #### C BC #### [facility] [address] [place] [address] Dr. Carolina Rojo RBC 4.30 106/ul Normal 4.20-5.40 [facility] Comment on above: Performed By: #### C BC #### [facility] [address] [place] [address] Dr. Carolina Rojo WBC 8.3 103/ul Normal 4.0-11.0 [facility] Comment on above: Performed By: #### C BC #### [facility] [address] [place] [address] Dr. Carolina Rojo CULTURE URINEon 08-24-2022 CULTURE URINE Culture Observations : MODERATE GROWTH OF MIXED GENITAL SHANNON. NO POTENTIAL PATHOGENS SEEN. Normal [facility] Comment on above: Performed By: #### C BC #### [facility] [address] [place] [address] Dr. Carolina Rojo ER URINE PROFILEon 3 Bilirubin Ql (U) Negative Normal NEGATIVE [facility] Comment on above: Performed By: #### C BC #### [facility] [address] [place] [address] Dr. Carolina Rojo Clarity (U) CLEAR Normal CLEAR [facility] Comment on above: Performed By: #### C BC #### [facility] [address] [place], [place] [id number] Dr. Carolina Rojo Color (U) LT. YELLOW Normal YELLOW [facility] Comment on above: Performed By: #### C BC #### [facility] [address] [place] [address] Dr. Carolina Rojo ERUAHD A micrscopic examination will be performed if indicated. Normal [facility] [place] [facility] Comment on above: Performed By: #### C BC #### [facility] [address] [place] [address] Dr. Carolina Rojo Glucose Ql (U) Negative Normal NEGATIVE [facility] Comment on above: Performed By: #### C BC #### [facility] [address] [place] [address] Dr. Carolina Rojo Hemoglobin Ql (U) TRACE-INTACT Abnormal NEGATIVE [facility] Comment on above: Performed By: #### C BC #### [facility] [address] [place] [address] Dr. Carolina Rojo Ketones Ql (U) Negative Normal NEGATIVE [facility] Comment on above: Performed By: #### C BC #### [facility] [address] [place] [address] Dr. Carolina Rojo LEUKOCYTES TRACE Abnormal NEGATIVE [facility] Comment on above: Performed By: #### C BC #### [facility] [address] [place] [address] Dr. Carolina Rojo Nitrite Ql (U) Negative Normal NEGATIVE [facility] Comment on above: Performed By: #### C BC #### [facility] [address] [place] [address] Dr. Carolina Rojo pH (U) 7.0 [pH] Normal 5-9 [facility] Comment on above: Performed By: #### C BC #### [facility] [address] [place] [address] Dr. Carolina Rojo SPEC GRAVITY 1.020 Normal 1.005-<=1.025 [facility] Comment on above: Performed By: #### C BC #### [facility] [address] [place] [address] Dr. Carolina Rojo UA PROTEIN Negative Normal NEGATIVE/ TRACE [facility] Comment on above: Performed By: #### C BC #### [facility] [address] [place] [address] Dr. Carolina Rojo UR MICRO IND INDICATED Normal [facility] Comment on above: Performed By: #### C BC #### [facility] [address] [address] [address] Carolina Rojo Urobilinogen Qn (U) 0.2 {Daysi'U}/dL Normal 0.2 - 1. 0 [facility] Comment on above: Performed By: #### C BC #### [facility] [address] [address] [address] Carolina Rojo PROF CHEM 8 (BAS METB)on Anion gap [Moles/Vol] 16.2 mmol/L Normal [facility] Comment on above: Performed By: #### B MP #### [facility] [address] [address] [address] Carolina Rojo Calcium [Mass/Vol] 8.7 mg/dL Normal 8.5-10.1 [facility] Comment on above: Performed By: #### B MP #### [facility] [address] [address] [address] Carolina Rojo Chloride [Moles/Vol] 109 mmol/L Critically high 98-107 [facility] Comment on above: Performed By: #### B MP #### [facility] [address] [address] [address] Carolina Rojo CO2 [Moles/Vol] 19.2 mmol/L Critically low 21.0-32.0 [facility] Comment on above: Performed By: #### B MP #### [facility] [address] [address] [address] Carolina Rojo Creatinine [Mass/Vol] 0.76 mg/dL Normal 0.55-1.02 [facility] Comment on above: Performed By: #### B MP #### [facility] [address] [address] [address] Carolina Rojo EGFR-AF SENEGALESE >60 Normal >=60 [facility] Comment on above: Performed By: #### B MP #### [facility] [address] [address] [address] Carolina Rojo EGFR-NON AF SENEGALESE >60 Normal >=60 [facility] Comment on above: Performed By: #### B MP #### [facility] [address] [address] [address] Carolina Rojo Glucose [Mass/Vol] 86 mg/dL Normal 74-106 [facility] Comment on above: Performed By: #### B MP #### [facility] [address] [place] [address] Dr. Carolina Rojo Potassium [Moles/Vol] 3.4 mmol/L Critically low 3.5-5.[address] [facility] Comment on above: Performed By: #### B MP #### [facility] [address] [place] [address] Dr. Carolina Rojo Sodium [Moles/Vol] 141 mmol/L Normal 136-145 [facility] Comment on above: Performed By: #### B MP #### [facility] [address] [place] [address] Dr. Carolina Rojo Urea nitrogen [Mass/Vol] 12.0 mg/dL Normal 7.0-18.0 [facility] Comment on above: Performed By: #### B MP #### [facility] [address] [place] [address] Dr. Carolina Rojo Urea nitrogen/Creatinine [Mass ratio] 15.8 mg/mg Normal [facility] Comment on above: Performed By: #### B MP #### [facility] [address] [place] [address] Dr. Carolina Rojo URINE MICROSCOPIC ONLYon AMORPHOUS CRYSTALS FEW Normal [facility] Comment on above: Performed By: #### C BC #### [facility] [address] [place] [address] Dr. Carolina Rojo BACTERIA SMALL Abnormal NONE SEEN [facility] Comment on above: Performed By: #### C BC #### [facility] [address] [place] [address] Dr. Carolina Rojo Bacteria identified Cx Nom (U) INDICATED Normal [facility] Comment on above: Performed By: #### C BC #### [facility] [address] [place] [address] Dr. Carolina Rojo CAST NONE SEEN Normal NONE SEEN [facility] Comment on above: Performed By: #### C BC #### [facility] [address] [address] [address] Carolina Rojo Crystals LM Nom (Urine sed) SEEN Abnormal NONE SEEN [facility] Comment on above: Performed By: #### C BC #### [facility] [address] [address] [address] Carolina Rojo Epithelial cells LM Ql (Urine sed) FEW Abnormal NONE SEEN /RARE [facility] Comment on above: Performed By: #### C BC #### [facility] [address] [address] [address] Carolina Rojo MUCOUS SMALL Abnormal NONE SEEN [facility] Comment on above: Performed By: #### C BC #### [facility] [address] [place] [address] Dr. Carolina Rojo RBC 5-10 Abnormal 0-[address] [facility] Comment on above: Performed By: #### C BC #### [facility] [address] [place] [address] Dr. Carolina Rojo WBC 0-2 Abnormal NONE SEEN [facility] Comment on above: Performed By: #### C BC #### [facility] [address] [address] [address] Carolina Rojo Urinalysis - AUTOMATEDon Appearance (U) Cloudy [employer] Other Bilirubin Ql (U) Negative [employer] Other Color (U) Dark Yellow [employer] Other Glucose Ql (U) Negative [employer] Other Hemoglobin Ql (U) Small [employer] Other Ketones Ql (U) Trace [employer] Other Leukocyte esterase Test strip Ql (U) Trace [employer] Other Nitrite Ql (U) Negative [employer] Other pH (U) 6.0 [pH] [employer] Other Protein Ql (U) Trace [employer] Other Specific gravity (U) [Rel density] >=1.030 [employer] Other Urobilinogen (U) [Mass/Vol] 0.2 mg/dL [employer] Other Urinalysis - AUTOMATED [employer] Other Urine Cultureon 08-16-2022 Bacteria identified Cx Nom (U) 15,000 colonies/ml mixed bacterial skin contaminants 2 Days PERFORMED BY: [place] [address] PATHOLOGIST DUKEY RIDER ELVA MCCLURE M.D. Normal [facility] Comment on above: Performed By: #### C UU #### [address] Urine culture routineOrdered By: Kena Snider on 08-16-2022 Bacteria identified Cx Nom (U) 2 Days [facility] Office Visit (Neuro-General) on 03-13-2022 Follow-up visit Provider Impressions Patient with a fairly low resting heart rate and blood pressure, would be better to avoid a beta-stephane at this time. We will try Emgality for prevention, added benefits of not having issues with electrolytes or kidney function. Patient Discussion/Summary Reduce Topiramate by one half of a 50mg tablet every 2 weeks until the medication is stopped. Start Emgality for prevention. Please call our office at [phone] to leave a message with my financial secretary if you have any questions or concerns. Please contact me on the [employer] application if you cannot reach me through the phone. Return to clinic in 3 months or earlier as needed. Diagnoses/Problems Assessed Chronic migraine without aura, with intractable migraine, so stated, with status migrainosus (346.73) (G43.711) Orders Chronic migraine without aura, with intractable migraine, so stated, with status migrainosus Changed: From Emgality 120 MG/ML Subcutaneous Solution Auto-injector INJECT 240 MG Subcutaneous loading dose To Emgality 120 MG/ML Subcutaneous Solution Auto-injector Inject 120 mg (1 pen) under the skin Once a Month as directed Chief Complaint An interactive audio and video telecommunication system which permits real time communications between the patient (at the originating site) and provider (at the distant site) was utilized to provide this telehealth service. Verbal consent was requested and obtained from MARIA VICTORIA JEN on this date, 03/13/2022 09:30 AM , for a telehealth visit. Headaches History of Present Illness Patient with history significant for chronic without aura here to discuss headaches. Was having bloodwork issues with magnesium and other electrolytes. Seeing Customer Support Specialist who is recommending going off of the Topamax. She notes that there are 3 medications she would need to start in order to continue with the Topamax. Notes that she felt really horrible on the doxepin in the past. Migraine occurs right sided episcopalian. Associated nausea, light and noise sensitivity. Triggers are overheating and over exercising. Has tried the following medications and treatments: Topamax no side effects, 150mg working well. Sumatriptan injection helpful but with dizziness. Rizatriptan helpful within 15 minutes, no side effects. Has Zofran but has not needed with quick action of Rizatriptan. Past Meds: Doxepin sedating, slept through the day. Review of Systems All other systems have been reviewed and are negative except as noted in HPI. Active Problems Problems Chronic migraine without aura, with intractable migraine, so stated, with status migrainosus (346.73) (G43.711) Visual disturbance (368.9) (H53.9) Past Medical History Problems History of dizziness (V13.89) (Z87.898) History of Migraine (346.90) (G43.909) Surgical History Problems History of Appendectomy 2005 History of Patellar dislocation repair september 2004 History of Tubal ligation 2013 Family History Mother Family history of malignant neoplasm (V16.9) (Z80.9) Grandmother Family history of malignant neoplasm (V16.9) (Z80.9) Social History Problems Consumes alcohol occasionally (V49.89) (Z78.9) Daily caffeine consumption, 1 serving a day Non-smoker (V49.89) (Z78.9) Allergies Medication Latex Exam Gloves MISC Recorded By: Yasmine Cerrato; 10/29/2019 7:27:24 AM Morphine Sulfate (Concentrate) SOLN Recorded By: Yasmine Cerrato; 10/29/2019 7:27:24 AM Current Meds Medication NameInstruction Rizatriptan Benzoate 10 MG Oral TabletTAKE 1 TABLET BY MOUTH AT ONSET OF HEADACHE. MAY REPEAT EVERY 2 HOURS NEEDED. MAXIMUM 3 TABLETS IN 24 HOURS SUMAtriptan Succinate 6 MG/0.5ML Subcutaneous Solution Auto-injector1 to 2 sq qd prn Topiramate 50 MG Oral TabletTake 3 tablets at bedtime Physical Exam General: No acute distress. Neurological: The patient is awake, alert and oriented to person, place, and time with normal speech. Memory is normal and thought process is intact. Psychiatric: Appropriate mood and affect. Time Details of other time spent: Prep time on date of the patient encounter in minutes: 6 Time spent directly with patient/family/caregi sahra in minutes: 10 Additional time spent on patient care activities: 0 Documentation time in minutes: 5 Total time on date of patient encounter in minutes: 21. Signatures Electronically signed by : ZULAY Dumont; Mar 13 2022 9:56AM EST (Author) Normal [facility] Office Visit (Neuro-General) on 03-01-2022 Follow-up visit Patient Discussion/Summary Decrease to 100 mg of topamax so your kidney labs correct. If the headaches return we can restart . or try something else Diagnoses/Problems Assessed Chronic migraine without aura, with intractable migraine, so stated, with status migrainosus (346.73) (G43.711) Orders Chronic migraine without aura, with intractable migraine, so stated, with status migrainosus Renew: Rizatriptan Benzoate 10 MG Oral Tablet; TAKE 1 TABLET BY MOUTH AT ONSET OF HEADACHE. MAY REPEAT EVERY 2 HOURS NEEDED. MAXIMUM 3 TABLETS IN 24 HOURS Renew: Topiramate 50 MG Oral Tablet (Topamax); Take 3 tablets at bedtime Chief Complaint Neurologic Evaluation. An interactive audio and video telecommunication system which permits real time communications between the patient (at the originating site) and provider (at the distant site) was utilized to provide this telehealth service. Verbal consent was requested and obtained from MARIA VICTORIA LI on this date, 03/01/2022 01:30 PM , for a telehealth visit. Follow up migraine management yearly History of Present Illness Experiencing 1-2 migraine per month. Treats with Rizatriptan and works in 10m min. Never has to repeat. Has not needed Sumatriptan injection. Migraine occurs right sided episcopalian. Associated nausea, light and noise sensitivity. Has Zofran but has not needed with quick action of Rizatriptan. Triggers are overheating and over exercising. Continues Topiramate 150mg at HS. Denies tingling hands or feet, denies cognitive fog. Sleeping well. 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 Chronic migraine without aura, with intractable migraine, so stated, with status migrainosus (346.73) (G43.711) Visual disturbance (368.9) (H53.9) Past Medical History Problems History of dizziness (V13.89) (Z87.898) History of Migraine (346.90) (G43.909) Surgical History Problems History of Appendectomy 2005 History of Patellar dislocation repair september 2004 History of Tubal ligation 2012 Family History Mother Family history of malignant neoplasm (V16.9) (Z80.9) Grandmother Family history of malignant neoplasm (V16.9) (Z80.9) Social History Problems Consumes alcohol occasionally (V49.89) (Z78.9) Daily caffeine consumption, 1 serving a day Non-smoker (V49.89) (Z78.9) Allergies Medication Latex Exam Gloves MISC Recorded By: Yasmine Cerrato; 10/29/2019 7:27:24 AM Morphine Sulfate (Concentrate) SOLN Recorded By: Yasmine Cerrato; 10/29/2019 7:27:24 AM Current Meds Medication NameInstruction Ondansetron HCl - 4 MG Oral Tablet1 po q 8 hours prn Rizatriptan Benzoate 10 MG Oral TabletTAKE 1 TABLET BY MOUTH AT ONSET OF HEADACHE. MAY REPEAT EVERY 2 HOURS NEEDED. MAXIMUM 3 TABLETS IN 24 HOURS SUMAtriptan Succinate 6 MG/0.5ML Subcutaneous Solution Auto-injector1 to 2 sq qd prn Topiramate 50 MG Oral TabletTake 3 tablets at bedtime Triamcinolone Acetonide 0.1 % External [facility] now corrected. Time Prep time on date of the patient encounter: 10 minutes. Time spent directly with patient/family/caregi sahra: 7 minutes. Documentation time: 5 minutes. Total time on date of patient encounter: 22 minutes. Time spent with patient: 22 minutes of which greater than 50 percent was spent counseling and or coordinating care. Signatures Electronically signed by : Mavis Martínez MD; Mar 01 2022 1:47PM EST (Author) Normal [employer] IMMUNOFIXATION(DAE),PROTEIN ELEC(PE),FREon 02-27-2022 Albumin [Mass/Vol] 4.0 g/dL Normal 2.9-4.4 [facility] Comment on above: Performed By: #### I FEPEFL #### [facility] [address] [place] [address] Dr. Carolina Rojo Albumin/Globulin [Mass ratio] 1.4 {ratio} Normal 0.7-1.7 [facility] Comment on above: Performed By: #### I FEPEFL #### [facility] [address] [place] [address] Dr. Carolina Rojo Kerff-8-Slvxjpqw 0.3 g/dL Normal 0.0-0.4 [facility] Comment on above: Performed By: #### I FEPEFL #### [facility] [address] [place] [address] Dr. Carolina Rojo Qtvcj-1-Izrtpqql 0.7 g/dL Normal 0.4-1.0 [facility] Comment on above: Performed By: #### I FEPEFL #### [facility] [address] [address] [address] Carolina Rojo Beta Globulin 1.0 g/dL Normal 0.7-1.3 [facility] Comment on above: Performed By: #### I FEPEFL #### [facility] [address] [place] [address] Dr. Carolina Rojo Free [place] [facility] Lt Chains,S 16.2 mg/L Normal 3.3-19.4 [facility] Comment on above: Performed By: #### I FEPEFL #### [facility] [address] [place] [address] Dr. Carolina Rojo Free Lambda Lt Chains,S 10.7 mg/L Normal 5.7-26.3 [facility] Comment on above: Performed By: #### I FEPEFL #### [facility] [address] [address] [address] Carolina Rojo Gamma Globulin 1.0 g/dL Normal 0.4-1.8 [facility] Comment on above: Performed By: #### I FEPEFL #### [facility] [address] [place] [address] Dr. Carolina Rojo Globulin (S) [Mass/Vol] 3.0 g/dL Normal 2.2-3.9 [facility] Comment on above: Performed By: #### I FEPEFL #### [facility] [address] [place] [address] Dr. Carolina Rojo Immunofixation Result, Serum Comment Normal [facility] Comment on above: Result Comment: No m onoclonality detected. Performed By: #### I FEPEFL #### [facility] [address] [place] [address] Dr. Carolina Rojo Immunoglobulin A, Qn, Serum 76 mg/dL Critically low 87-352 [facility] Comment on above: Performed By: #### I FEPEFL #### [facility] [address] [place] [address] Dr. Carolina Rojo Immunoglobulin G, Qn, Serum 945 mg/dL Normal 586-1602 [facility] Comment on above: Performed By: #### I FEPEFL #### [facility] [address] [place] [address] Dr. Carolina Rojo Immunoglobulin M, Qn, Serum 178 mg/dL Normal 26-[address] [facility] Comment on above: Performed By: #### I FEPEFL #### [facility] [address] [place] [address] Dr. Carolina Rojo [place] [facility]/Lambda Ratio, S 1.51 Normal 0.26-1.65 [facility] Comment on above: Performed By: #### I FEPEFL #### [facility] [address] [place] [address] Dr. Carolina Rojo M-Phu Not Observed Normal Not Observed [facility] Comment on above: Performed By: #### I FEPEFL #### [facility] [address] [address] [address] Carolina Rojo PDF . Normal [facility] Comment on above: Performed By: #### I FEPEFL #### [facility] [address] [place] [address] Dr. Carolina Rojo Please note: Comment Normal [facility] Comment on above: Result Comment: Prot ein electrophoresis scan will follow via computer, mail, or lacing cutter delivery. Performed By: #### I FEPEFL #### [facility] [address] [place] [address] Dr. Carolina Rojo Protein [Mass/Vol] 7.0 g/dL Normal 6.0-8.5 [facility] Comment on above: Performed By: #### I FEPEFL #### [facility] [address] [place] [address] Dr. Carolina Rojo CHLORIDE URINE RANDOMon Chloride, Urine 160 mmol/L Normal Not Estab. [facility] Comment on above: Performed By: #### C LRU #### [facility] [address] [place] [address] Dr. Carolina Rojo MAGNESIUMon 02-24-2022 Magnesium [Mass/Vol] 1.6 mg/dL Critically low 1.8-2.[address] [facility] Comment on above: Performed By: #### K U, SAM #### [facility] [address] [place] [address] Dr. Carolina Rojo POTASSIUM URINEon 02-24-2022 UR POTASSIUM 32.1 mmol/L Normal [facility] Comment on above: Performed By: #### K U, SAM #### [facility] [address] [place] [address] Dr. Carolina Rojo RENAL FUNCTION PANELon 02-24 Albumin [Mass/Vol] 4.1 g/dL Normal 3.4-5.0 [facility] Comment on above: Performed By: #### K U, SAM #### [facility] [address] [address] [address] Carolina Rojo Calcium [Mass/Vol] 9.2 mg/dL Normal 8.5-10.1 [facility] Comment on above: Performed By: #### K U, SAM #### [facility] [address] [address] [address] Carolina Rojo Chloride [Moles/Vol] 106 mmol/L Normal 98-[address] [facility] Comment on above: Performed By: #### K U, SAM #### [facility] [address] [address] [address] Carolina Rojo CO2 [Moles/Vol] 22.7 mmol/L Normal 21.0-32.0 [facility] Comment on above: Performed By: #### K U, SAM #### [facility] [address] [place] [address] Dr. Carolina Rojo Creatinine [Mass/Vol] 0.51 mg/dL Critically low 0.55-1.[address] [facility] Comment on above: Performed By: #### K U, SAM #### [facility] [address] [place] [address] Dr. Carolina Rojo EGFR-AF SENEGALESE >60 Normal >=60 [facility] Comment on above: Performed By: #### K U, SAM #### [facility] [address] [place] [address] Dr. Carolina Rojo EGFR-NON AF SENEGALESE >60 Normal >=[address] [facility] Comment on above: Performed By: #### K U, SAM #### [facility] [address] [place] [address] Dr. Carolina Rojo Glucose [Mass/Vol] 88 mg/dL Normal 74-106 [facility] Comment on above: Performed By: #### K U, SAM #### [facility] [address] [address] [address] Carolina Rojo Phosphate [Mass/Vol] 4.4 mg/dL Normal 2.6-4.[address] [facility] Comment on above: Performed By: #### K U, SAM #### [facility] [address] [place] [address] Dr. Carolina Rojo Potassium [Moles/Vol] 3.4 mmol/L Critically low 3.5-5.1 [facility] Comment on above: Performed By: #### K U, SAM #### [facility] [address] [place] [address] Dr. Carolina Rojo Sodium [Moles/Vol] 139 mmol/L Normal 136-145 [facility] Comment on above: Performed By: #### K U, SAM #### [facility] [address] [place] [address] Dr. Carolina Rojo Urea nitrogen [Mass/Vol] 13.0 mg/dL Normal 7.0-18.0 [facility] Comment on above: Performed By: #### K U, SAM #### [facility] [address] [place] [address] Dr. Carolina Rojo SODIUM RANDOM URINEon 2021 Sodium (U) [Moles/Vol] 171 mmol/L Critically high 30-90 [facility] Comment on above: Performed By: #### K U, SAM #### [facility] [address] [place] [address] Dr. Carolina Rojo UA RANDOM W/MICROSCOPICon BACTERIA NONE SEEN Normal NONE SEEN [facility] Comment on above: Performed By: #### C BC #### [facility] [address] [place] [address] Dr. Carolina Rojo Bilirubin Ql (U) Negative Normal NEGATIVE [facility] Comment on above: Performed By: #### C BC #### [facility] [address] [place] [address] Dr. Carolina Rojo CAST NONE SEEN Normal NONE SEEN [facility] Comment on above: Performed By: #### C BC #### [facility] [address] [place] [address] Dr. Carolina Rojo Clarity (U) CLEAR Normal CLEAR [facility] Comment on above: Performed By: #### C BC #### [facility] [address] [place] [address] Dr. Carolina Rojo Color (U) LT. YELLOW Normal YELLOW [facility] Comment on above: Performed By: #### C BC #### [facility] [address] [place] [address] Dr. Carolina Rojo Crystals LM Nom (Urine sed) NONE SEEN Normal NONE SEEN [facility] Comment on above: Performed By: #### C BC #### [facility] [address] [place] [address] Dr. Carolina Rojo Epithelial cells LM Ql (Urine sed) RARE Normal NONE SEEN /RARE [facility] Comment on above: Performed By: #### C BC #### [facility] [address] [place] [address] Dr. Carolina Rojo Glucose Ql (U) Negative Normal NEGATIVE [facility] Comment on above: Performed By: #### C BC #### [facility] [address] [place] [address] Dr. Carolina Rojo Hemoglobin Ql (U) TRACE-INTACT Abnormal NEGATIVE [facility] Comment on above: Performed By: #### C BC #### [facility] [address] [place] [address] Dr. Carolina Rojo Ketones Ql (U) Negative Normal NEGATIVE [facility] Comment on above: Performed By: #### C BC #### [facility] [address] [place] [address] Dr. Carolina Rojo LEUKOCYTES Negative Normal NEGATIVE [facility] Comment on above: Performed By: #### C BC #### [facility] [address] [place] [address] Dr. Carolina Rojo MUCOUS NONE SEEN Normal NONE SEEN [facility] Comment on above: Performed By: #### C BC #### [facility] [address] [place] [address] Dr. Carolina Rojo Nitrite Ql (U) Negative Normal NEGATIVE [facility] Comment on above: Performed By: #### C BC #### [facility] [address] [place] [address] Dr. Carolina Rojo pH (U) 7.0 [pH] Normal 5-[address] [facility] Comment on above: Performed By: #### C BC #### [facility] [address] [place] [address] Dr. Carolina Rojo RBC 0-2 Normal 0-[address] [facility] Comment on above: Performed By: #### C BC #### [facility] [address] [place] [address] Dr. Carolina Rojo SPEC GRAVITY 1.015 Normal 1.005-<=1.025 [facility] Comment on above: Performed By: #### C BC #### [facility] [address] [place] [address] Dr. Carolina Rojo UA PROTEIN Negative Normal NEGATIVE/ TRACE [facility] Comment on above: Performed By: #### C BC #### [facility] [address] [place] [address] Dr. Carolina Rojo Urobilinogen Qn (U) 0.2 {Daysi'U}/dL Normal 0.2 - 1. 0 [facility] Comment on above: Performed By: #### C BC #### [facility] [address] [place] [address] Dr. Carolina Rojo WBC 0-2 Abnormal NONE SEEN [facility] Comment on above: Performed By: #### C BC #### [facility] [address] [place] [address] Dr. Carolina Rojo URINE T PROTEIN CREAT RATIOo n 02-24-2022 Protein (U) [Mass/Vol] 19.5 mg/dL Critically high <=12.0 [facility] Comment on above: Performed By: #### C BC #### [facility] [address] [place] [address] Dr. Carolina Rojo UR PROT CREAT RAT 0.24 Normal [facility] Comment on above: Performed By: #### C BC #### [facility] [address] [place] [address] Dr. Carolina Rojo URINE CREAT 80.38 mg/dL Normal 20.00-300.00 [facility] Comment on above: Performed By: #### C BC #### [facility] [address] [place] [address] Dr. Carolina Rojo PROF CHEM 8 (BAS METB)on Anion gap [Moles/Vol] 17.0 mmol/L Normal [facility] Comment on above: Performed By: #### B MP #### [facility] [address] [address] [address] Carolina Rojo Calcium [Mass/Vol] 8.5 mg/dL Normal 8.5-10.1 [facility] Comment on above: Performed By: #### B MP #### [facility] [address] [address] [address] Carolina Rojo Chloride [Moles/Vol] 109 mmol/L Critically high 98-107 [facility] Comment on above: Performed By: #### B MP #### [facility] [address] [place] [address] Dr. Carolina Rojo CO2 [Moles/Vol] 17.5 mmol/L Critically low 21.0-32.0 [facility] Comment on above: Performed By: #### B MP #### [facility] [address] [address] [address] Carolina Rojo Creatinine [Mass/Vol] 0.48 mg/dL Critically low 0.55-1.02 [facility] Comment on above: Performed By: #### B MP #### [facility] [address] [place] [address] Dr. Carolina Rojo EGFR-AF SENEGALESE >60 Normal >=60 [facility] Comment on above: Performed By: #### B MP #### [facility] [address] [address] [address] Carolina Rojo EGFR-NON AF SENEGALESE >60 Normal >=[address] [facility] Comment on above: Performed By: #### B MP #### [facility] [address] [address] [address] Carolina Rojo Glucose [Mass/Vol] 88 mg/dL Normal 74-106 [facility] Comment on above: Performed By: #### B MP #### [facility] [address] [address] [address] Carolina Rojo Potassium [Moles/Vol] 3.5 mmol/L Normal 3.5-5.1 [facility] Comment on above: Performed By: #### B MP #### [facility] [address] [place] [address] Dr. Carolina Rojo Sodium [Moles/Vol] 140 mmol/L Normal 136-145 [facility] Comment on above: Performed By: #### B MP #### [facility] [address] [place] [address] Dr. Carolina Rojo Urea nitrogen [Mass/Vol] 12.0 mg/dL Normal 7.0-18.0 [facility] Comment on above: Performed By: #### B MP #### [facility] [address] [place] [address] Dr. Carolina Rojo Urea nitrogen/Creatinine [Mass ratio] 25.0 mg/mg Normal [facility] Comment on above: Performed By: #### B MP #### [facility] [address] [place] [address] Dr. Carolina Rojo ZAYNAB EIA W/REFLEX 9 BIOMARKER Son 11-27-2021 ZAYNAB Direct Negative Normal Negative [facility] Comment on above: Performed By: #### A NARF9 #### [facility] [address] [place] [address] Dr. Carolina Rojo CBC AUTO DIFFon 11-24-2021 BASO # 0.1 103/ul Normal 0.0-0.1 [facility] Comment on above: Performed By: #### C BC #### [facility] [address] [place] [address] Dr. Carolina Rojo Basophils/100 WBC (Bld) 0.9 % Normal 0.2-2.0 [facility] Comment on above: Performed By: #### C BC #### [facility] [address] [place] [address] Dr. Carolina Rojo EO # 0.3 103/ul Normal 0.0-0.7 [facility] Comment on above: Performed By: #### C BC #### [facility] [address] [place] [address] Dr. Carolina Rojo Eosinophils/100 WBC (Bld) 4.7 % Normal 0.9-7.0 [facility] Comment on above: Performed By: #### C BC #### [facility] [address] [place] [address] Dr. Carolina Rojo Erythrocyte distribution width (RBC) [Ratio] 13.5 % Normal 11.0-15.0 [facility] Comment on above: Performed By: #### C BC #### [facility] [address] [place] [address] Dr. Carolina Rojo Hematocrit (Bld) [Volume fraction] 38.1 % Normal 36.0-48.0 [facility] Comment on above: Performed By: #### C BC #### [facility] [address] [place] [address] Dr. Carolina Rojo Hemoglobin (Bld) [Mass/Vol] 12.8 g/dL Normal 12.0-16.0 [facility] Comment on above: Performed By: #### C BC #### [facility] [address] [place] [address] Dr. Carolina Rojo IG # 0.03 10e3/ul Normal 0.00-0.03 [facility] Comment on above: Performed By: #### C BC #### [facility] [address] [place] [address] Dr. Carolina Rojo IG % 0.5 % Normal 0.0-0.5 [facility] Comment on above: Performed By: #### C BC #### [facility] [address] [place] [address] Dr. Carolina Rojo LYMPH # 2.3 103/ul Normal 1.2-3.8 [facility] Comment on above: Performed By: #### C BC #### [facility] [address] [place] [address] Dr. Carolina Rojo Lymphocytes/100 WBC (Bld) 40.3 % Normal 20.5-60.0 [facility] Comment on above: Performed By: #### C BC #### [facility] [address] [place] [address] Dr. Carolina Rojo MANUAL DIFF REQ NO Normal [facility] Comment on above: Performed By: #### C BC #### [facility] [address] [address] [address] Carolina Rojo MCH (RBC) [Entitic mass] 29.9 pg Normal 26.7-34.0 [facility] Comment on above: Performed By: #### C BC #### [facility] [address] [address] [address] Carolina Rojo MCHC (RBC) [Mass/Vol] 33.6 g/dL Normal 29.9-35.2 [facility] Comment on above: Performed By: #### C BC #### [facility] [address] [place] [address] Dr. Carolina Rojo MCV (RBC) [Entitic vol] 89.0 fL Normal 81.0-99.0 [facility] Comment on above: Performed By: #### C BC #### [facility] [address] [place] [address] Dr. Carolina Rojo MONO # 0.4 103/ul Normal 0.3-0.8 [facility] Comment on above: Performed By: #### C BC #### [facility] [address] [place] [address] Dr. Carolina Rojo Monocytes/100 WBC (Bld) 7.3 % Normal 1.7-12.0 [facility] Comment on above: Performed By: #### C BC #### [facility] [address] [place] [address] Dr. Carolina Rojo NEUT # 2.6 103/ul Normal 1.4-6.[address] [facility] Comment on above: Performed By: #### C BC #### [facility] [address] [place] [address] Dr. Carolina Rojo Neutrophils/100 WBC (Bld) 46.3 % Normal 43.0-75.[address] [facility] Comment on above: Performed By: #### C BC #### [facility] [address] [place] [address] Dr. Carolina Rojo Platelet mean volume (Bld) [Entitic vol] 10.4 fL Normal 9.5-13.5 [facility] Comment on above: Performed By: #### C BC #### [facility] [address] [address] [address] Carolina Rojo PLT 284 103/ul Normal 150-450 [facility] Comment on above: Performed By: #### C BC #### [facility] [address] [address] [address] Carolina Rojo RBC 4.28 106/ul Normal 4.20-5.40 [facility] Comment on above: Performed By: #### C BC #### [facility] [address] [place] [address] Dr. Carolina Rojo WBC 5.6 103/ul Normal 4.0-11.0 [facility] Comment on above: Performed By: #### C BC #### [facility] [address] [place] [address] Dr. Carolina Rojo CRPon 11-24-2021 CRP [Mass/Vol] mg/L Normal <=1.0 [facility] Comment on above: Performed By: #### C BC #### [facility] [address] [place] [address] Dr. Carolina Rojo LIPID PROFILEon 11-24-2021 CHOL-HDL RATIO NORM SEE BELOW Normal [facility] Comment on above: Result Comment: 3.3 - 4.4 LOW RISK 4.4 - 7.1 AVERAGE RISK 7.1 - 11.0 MODERATE RISK >11.0 HIGH RISK Performed By: #### C BC #### [facility] [address] [place] [address] Dr. Carolina Rojo Cholesterol [Mass/Vol] 170 mg/dL Normal <=[address] [facility] Comment on above: Performed By: #### C BC #### [facility] [address] [place] [address] Dr. Carolina Rojo Cholesterol in HDL [Mass/Vol] 46 mg/dL Normal 40-60 [facility] Comment on above: Performed By: #### C BC #### [facility] [address] [place] [address] Dr. Carolina Rojo Cholesterol in LDL [Mass/Vol] 112.6 mg/dL Normal [facility] Comment on above: Performed By: #### C BC #### [facility] [address] [address] [address] Carolina Rojo Cholesterol.total/C holesterol in HDL [Mass ratio] 3.7 {ratio} Normal [facility] Comment on above: Performed By: #### C BC #### [facility] [address] [address] [address] Carolina Rojo HDL NORMAL > or = 60 mg/dl - LO W CARDIOVASCULAR RISK <40 mg/dl - HIGH CARDIOVASCULAR RISK Normal [facility] Comment on above: Performed By: #### C BC #### [facility] [address] [place] [address] Dr. Carolina Rojo LDL CALC NORMAL SEE BELOW Normal [facility] Comment on above: Result Comment: <100 mg/dl OPTIMAL 100 - 129 mg/dl NEAR OR ABOVE OPTIMAL 130 - 159 mg/dl BORDERLINE HIGH 160 - 189 mg/dl HIGH >190 mg/dl VERY HIGH Performed By: #### C BC #### [facility] [address] [place] [address] Dr. Carolina Rojo Triglyceride [Mass/Vol] 57 mg/dL Normal <=150 [facility] Comment on above: Performed By: #### C BC #### [facility] [address] [place] [address] Dr. Carolina Rojo VLDL CALC 11.4 mg/dL Normal [facility] Comment on above: Performed By: #### C BC #### [facility] [address] [place] [address] Dr. Carolina Rojo PROF 14(COMP METB)on 022 Albumin [Mass/Vol] 4.2 g/dL Normal 3.4-5.0 [facility] Comment on above: Performed By: #### C BC #### [facility] [address] [place] [address] Dr. Carolina Rojo Albumin/Globulin [Mass ratio] 1.3 {ratio} Normal [facility] Comment on above: Performed By: #### C BC #### [facility] [address] [place] [address] Dr. Carolina Rojo ALP [Catalytic activity/Vol] 52 U/L Normal 46-116 [facility] Comment on above: Performed By: #### C BC #### [facility] [address] [place] [address] Dr. Carolina Rojo ALT [Catalytic activity/Vol] 17 U/L Normal 14-59 [facility] Comment on above: Performed By: #### C BC #### [facility] [address] [place] [address] Dr. Carolina Rojo Anion gap [Moles/Vol] 15.7 mmol/L Normal [facility] Comment on above: Performed By: #### C BC #### [facility] [address] [place] [address] Dr. Carolina Rojo AST [Catalytic activity/Vol] 9 U/L Critically low 15-37 [facility] Comment on above: Performed By: #### C BC #### [facility] [address] [place] [address] Dr. Carolina Rojo Bilirubin [Mass/Vol] 0.7 mg/dL Normal 0.2-1.0 [facility] Comment on above: Performed By: #### C BC #### [facility] [address] [place] [address] Dr. Carolina Rojo Calcium [Mass/Vol] 9.1 mg/dL Normal 8.5-10.1 [facility] Comment on above: Performed By: #### C BC #### [facility] [address] [place] [address] Dr. Carolina Rojo Chloride [Moles/Vol] 109 mmol/L Critically high 98-107 [facility] Comment on above: Performed By: #### C BC #### [facility] [address] [place] [address] Dr. Carolina Rojo CO2 [Moles/Vol] 20.2 mmol/L Critically low 21.0-32.0 [facility] Comment on above: Performed By: #### C BC #### [facility] [address] [place] [address] Dr. Carolina Rojo Creatinine [Mass/Vol] 0.61 mg/dL Normal 0.55-1.[address] [facility] Comment on above: Performed By: #### C BC #### [facility] [address] [address] [address] Carolina Rojo EGFR-AF SENEGALESE >60 Normal >=60 [facility] Comment on above: Performed By: #### C BC #### [facility] [address] [address] [address] Carolina Rojo EGFR-NON AF SENEGALESE >60 Normal >=60 [facility] Comment on above: Performed By: #### C BC #### [facility] [address] [address] [address] Carolina Rojo Globulin (S) [Mass/Vol] 3.3 g/dL Normal [facility] Comment on above: Performed By: #### C BC #### [facility] [address] [address] [address] Carolina Rojo Glucose [Mass/Vol] 95 mg/dL Normal 74-106 [facility] Comment on above: Performed By: #### C BC #### [facility] [address] [address] [address] Carolina Rojo Potassium [Moles/Vol] 3.9 mmol/L Normal 3.5-5.[address] [facility] Comment on above: Performed By: #### C BC #### [facility] [address] [address] [address] Carolina Rojo Protein [Mass/Vol] 7.5 g/dL Normal 6.4-8.2 [facility] Comment on above: Performed By: #### C BC #### [facility] [address] [address] [address] Carolina Rojo Sodium [Moles/Vol] 141 mmol/L Normal 136-145 [facility] Comment on above: Performed By: #### C BC #### [facility] [address] [address] [address] Carolina Rojo Urea nitrogen [Mass/Vol] 11.0 mg/dL Normal 7.0-18.0 [facility] Comment on above: Performed By: #### C BC #### [facility] [address] [place] [address] Dr. Carolnia Rojo Urea nitrogen/Creatinine [Mass ratio] 18.0 mg/mg Normal [facility] Comment on above: Performed By: #### C BC #### [facility] [address] [place] [address] Dr. Carolina Rojo [facility] 3 mm/hr Normal <=[address] [facility] Comment on above: Performed By: #### S EDR #### [facility] [address] [place] [address] Dr. Carolina Rojo T4on 11-24-2021 T4 [Mass/Vol] 8.70 ug/dL Normal 4.80-13.90 [facility] Comment on above: Performed By: #### K U, SAM #### [facility] [address] [place] [address] Dr. Carolina Rojo TSHon 11-24-2021 TSH 2.585 uIU/mL Normal 0.358-3.740 [facility] Comment on above: Performed By: #### C BC #### [facility] [address] [place] [address] Dr. Carolina Rojo Vital Signs Date Time Vital Sign Value Performing Clinician Facility 06-10-2023 15:44-0500 Body mass index (BMI) [Ratio] 25.39 kg/m2 Mavis Martínez MD Work Phone: [facility] 06-10-2023 15:44-0500 Body temperature 98.6 [degF] Mavis Martínez MD Work Phone: [facility] 06-10-2023 15:44-0500 Body weight 58.97 kg Mavis Martínez MD Work Phone: [facility] 06-10-2023 15:44-0500 Diastolic blood pressure 68 mm[Hg] Mavis Martínez MD Work Phone: [facility] 06-10-2023 15:44-0500 Systolic blood pressure 98 mm[Hg] Mavis Martínez MD Work Phone: [facility] 05-06-2023 13:30-0500 Blood Pressure Location Celestino SERRANO [facility] 05-06-2023 13:30-0500 Diastolic blood pressure 84 mm[Hg] Celestino SERRANO [facility] 05-06-2023 13:30-0500 Systolic blood pressure 122 mm[Hg] Celestino SERRANO [facility] 12-06-2022 13:00-0400 Body height 152.4 cm Ella Gustafson Other [employer] Other 12-06-2022 13:00-0400 Body mass index (BMI) [Ratio] 26.48 kg/m2 Ella Gustafson Other [employer] Other 12-06-2022 13:00-0400 Body temperature 97.7 [degF] Ella Gustafson Other [employer] Other 12-06-2022 13:00-0400 Body weight 61.51 kg Ella Gustafson Other [employer] Other 12-06-2022 13:00-0400 Diastolic blood pressure 70 mm[Hg] Ella Gustafson Other [employer] Other 12-06-2022 13:00-0400 Respiratory rate 18 /min Ella Gustafson Other [employer] Other 12-06-2022 13:00-0400 SaO2% (BldA) [Mass fraction] 100 % Ella Gustafson Other [employer] Other 12-06-2022 13:00-0400 Systolic blood pressure 121 mm[Hg] Ella Gustafson Other [employer] Other 10-29-2022 09:13-0400 Blood Pressure Location Celestinodeon SERRANO [facility] 10-29-2022 09:13-0400 Diastolic blood pressure 82 mm[Hg] Celestinodeon SERRANO [facility] 10-29-2022 09:13-0400 Heart rate 79 /min Celestinodeon SERRANO [facility] 10-29-2022 09:13-0400 Respiratory rate 16 /min Celestino SERRANO [facility] 10-29-2022 09:13-0400 Systolic blood pressure 121 mm[Hg] Celestino SERRANO [facility] 10-13-2022 14:35-0400 Body height 152.4 cm Dai Vaughn Other [employer] Other 10-13-2022 14:35-0400 Body mass index (BMI) [Ratio] 26.36 kg/m2 Dai Vaughn Other [employer] Other 10-13-2022 14:35-0400 Body temperature 97.8 [degF] Dai Vaughn Other [employer] Other 10-13-2022 14:35-0400 Body weight 61.24 kg Dai Vaughn Other [employer] Other 10-13-2022 14:35-0400 Diastolic blood pressure 71 mm[Hg] Dai Vaughn Other [employer] Other 10-13-2022 14:35-0400 Respiratory rate 16 /min Dai Vaughn Other [employer] Other 10-13-2022 14:35-0400 SaO2% (BldA) [Mass fraction] 99 % Dai Vaughn Other [employer] Other 10-13-2022 14:35-0400 Systolic blood pressure 122 mm[Hg] Dai Vaughn Other [employer] Other 08-16-2022 19:00-0400 Body height 152.4 cm Kena Snider Other [employer] Other 08-16-2022 19:00-0400 Body mass index (BMI) [Ratio] 25.39 kg/m2 Kena Snider Other [employer] Other 08-16-2022 19:00-0400 Body temperature 98 [degF] Kena Snider Other [employer] Other 08-16-2022 19:00-0400 Body weight 58.97 kg Kena Snider Other [employer] Other 08-16-2022 19:00-0400 Respiratory rate 18 /min Kena Snider Other [employer] Other 08-16-2022 19:00-0400 SaO2% (BldA) [Mass fraction] 99 % Kena Snider Other [employer] Other 01-15-2022 17:40-0400 Body height 152.4 cm Keyana Akila Other [employer] Other 01-15-2022 17:40-0400 Body mass index (BMI) [Ratio] 27.53 kg/m2 Keyana Akila Other [employer] Other 01-15-2022 17:40-0400 Body temperature 97.2 [degF] Keyana Aklia Other [employer] Other 01-15-2022 17:40-0400 Body weight 63.96 kg Keyana Akila Other [employer] Other 01-15-2022 17:40-0400 Diastolic blood pressure 82 mm[Hg] Keyana Akila Other [employer] Other 01-15-2022 17:40-0400 Respiratory rate 18 /min Keyana Akila Other [employer] Other 01-15-2022 17:40-0400 SaO2% (BldA) [Mass fraction] 99 % Keyana Akila Other [employer] Other 01-15-2022 17:40-0400 Systolic blood pressure 130 mm[Hg] Keyana Akila Other [employer] Other 10-29-2019 15:03-0400 BMI (Body Mass Index) 28.71 kg/m2 Mavis Martínez MPQX-Bohcgkoma-Hcelnn 170 DO Work Phone: 10-29-2019 15:03-0400 Body Temperature 97.9 [degF] Mavis Martínez MP-Neurology-Me nicolas 170 DO Work Phone: Comment on above: Method: Tympanic 10-29-2019 15:03-0400 Body weight 66.68 kg Mavis Martínez NJ-Fzxavchrm-Wvr rocky 170 DO Work Phone: 10-29-2019 15:03-0400 BP Diastolic 80 mm[Hg] Mavis Martínez CB-Opjqaucnn-Lln rocky 170 DO Work Phone: Comment on above: Location: LUE; Position: Sitting 10-29-2019 15:03-0400 BP Systolic 110 mm[Hg] Mavis Martínez PM-Uesrswiie-Khh rocky 170 DO Work Phone: Comment on above: Location: LUE; Position: Sitting 10-29-2019 15:03-0400 BSA (Body Surface Area) 1.64 m2 Mavis Martínez CN-Yvhrwidcm-Cxdnei 170 DO Work Phone: 10-29-2019 15:03-0400 Height 152.4 cm Mavis Martínez CZ-Bgytpvnwo-Ncn rocky 170 DO Work Phone: 10-29-2019 15:03-0400 Pulse (Heart Rate) 68 /min Mavis Martínez MP-Neurology- Montez 170 DO Work Phone: Comment on above: Location: L Radial; Quality: Regular 10-29-2019 15:03-0400 Respiratory Rate 16 /min Mavis Martínez OS-Qmakiakkt-Or nicolas 170 DO Work Phone: Comment on above: Quality: Normal Encounters Encounter Date Encounter Type Care Provider Facility Start: 10-21-2023 ambulatory Celestino Ayoub ty:RASHEL Jaffe Start: 09-03-2023 ambulatory KELLE Damon acility:[facility] Start: 08-28-2023 ambulatory Celestino Ayoub ty:RASHEL Haque Start: 07-09-2023 End: 07-09-2023 ambulatory SILVESTRE SAMAYOA Not Available Start: 06-10-2023 End: 06-10-2023 ambulatory [facility] Ambulatory Start: 06-10-2023 End: 06-10-2023 Office outpatient visit 15 minutes Mavis Martínez MD Work Phone: [facility] Comment on above: Chronic migraine wit hout aura, with intractable migraine, so stated, with status migrainosus Start: 05-09-2023 End: 05-09-2023 ambulatory SILVESTRE STANFORDARTHUR Not Available Start: 05-06-2023 End: 05-07-2023 ambulatory Celestino SERRANO Facility:[facility] Start: 05-06-2023 End: 05-06-2023 Patient encounter procedure Celestino SERRANO [facility] Start: 03-05-2023 End: 03-05-2023 ambulatory CRISTI Macy MARTINEZ Not Available Start: 01-31-2023 End: 01-31-2023 ambulatory MAVIS MARTÍNEZ [facility] Ambulatory Start: 01-31-2023 End: 01-31-2023 Office outpatient visit 25 minutes Mavis Martínez MD Work Phone: [facility] Comment on above: Chronic migraine wit hout aura, with intractable migraine, so stated, with status migrainosus; Nausea Start: 12-10-2022 End: 12-10-2022 ambulatory Ella Gustafson Other [employer] Other Start: 12-10-2022 Telephone encounter Ella Gustafson [facility] [address] Start: 12-06-2022 End: 12-06-2022 ambulatory Ella Gustafson Facility:[facility] Start: 12-06-2022 Office outpatient vi sit 15 minutes Ella Gustafson [facility] Start: 12-06-2022 End: 12-06-2022 ambulatory PHYSICIAN NO [facility] Work Phone: Start: 12-06-2022 End: 12-06-2022 Departed Referred PHYSICIAN NO [facility] [place] Work Phone: Start: 11-13-2022 End: 11-14-2022 ambulatory Celestino SERRANO Facility:[facility] Start: 11-01-2022 End: 11-02-2022 ambulatory Celestino SERRANO Facility::[id number] Start: 10-29-2022 End: 10-30-2022 ambulatory STEVEN MITCH Facility:[facility] Start: 10-29-2022 End: 10-29-2022 Patient encounter procedure Celestino SERRANO [facility] Start: 10-14-2022 End: 10-14-2022 ambulatory PHYSICIAN NO FAMILY Facility:[facility] Start: 10-14-2022 End: 10-14-2022 ambulatory PHYSICIAN NO [facility] Work Phone: Start: 10-14-2022 End: 10-14-2022 Departed Referred PHYSICIAN NO [facility] [place] Work Phone: Start: 10-13-2022 End: 10-13-2022 ambulatory Dai Vaughn Other [employer] Other Start: 10-13-2022 Office outpatient vi sit 15 minutes Dai Vaughn [facility] Start: 08-27-2022 ambulatory Celestino SERRANO Facility :[facility] Start: 08-24-2022 End: 08-25-2022 ambulatory STEVEN MEYER . Facility: Start: 08-16-2022 End: 08-16-2022 Departed Referred PA-C Kena Snider Work Phone: [facility] [place] Work Phone: Start: 08-16-2022 End: 08-16-2022 ambulatory Kena Snider [facility] Work Phone: Start: 08-16-2022 Office outpatient vi sit 15 minutes Kena Snider [facility] Start: 04-12-2022 Telephone encounter Karen Harmon Work Phone: KU-Febjlfter-Qwncmlqu 204 DO Work Phone: Start: 03-13-2022 Phys/qhp telephone evaluation 21-30 min Karen Harmon Work Phone: LM-Jhuknqjzs-Sekerral 204 DO Work Phone: Start: 03-13-2022 ambulatory Ms. JACQUIE Cole lity:[id number] Start: 03-01-2022 Office outpatient vi sit 15 minutes Karen Harmon Work Phone: KJ-Rbdkwuudo-Jifoll 170 DO Work Phone: Start: 03-01-[address] MAVIS MARTÍNEZ Facility:[id number] Start: 02-24-2022 End: 02-25-2022 ambulatory KEYANA AKILA Facility:[facility] Start: 01-15-2022 End: 01-15-2022 ambulatory Keyana Akila Other [facility] Other Start: 01-15-2022 Office outpatient ne w 30 minutes Keyana Akila [facility] Start: 11-29-2021 End: 11-30-[address] CRISTI MARTINEZ Facility:[facility] Start: 11-27-2021 Encounter for genera l adult medical examination without abnormal findings [facility] Start: 11-24-2021 End: 11-25-[address] CRISTI MARTINEZ Facility:[facility] Start: 11-24-2021 End: 11-25-2021 Encounter for general adult medical examination without abnormal findings DR CRISTI MARTINEZ Facility:[facility] Start: 02-28-2021 Phys/qhp telephone evaluation 11-20 min Karen Harmon Work Phone: CC-Lmwcskykc-Zqnviolw 204 DO Work Phone: Start: 12-02-2020 AUDIT Karen Evans Luna hran Work Phone: NQ-Dfwqalihu-Ygfxwm 170 DO Work Phone: Start: 11-03-2020 Office outpatient vi sit 15 minutes Karen Naiduran Work Phone: BM-Ptjeynyat-Bsrsqv 170 DO Work Phone: Procedures Date Procedure Procedure Detail Performing Clinician Start: 06-10-2023 FOLLOW UP IN NEUROLOGY MAVIS MARTÍNEZ Start: 10-14-2022 Urine culture PHYSICIAN NO FAMILY Start: 08-16-2022 Urine culture PHYSICIAN NO FAMILY Start: 10-29-2019 Assay of thyroid sti mulating hormone tsh Mavis Martínez Start: 10-29-2019 Assay of triiodothyr onine t3 free Mavis Martínez Start: 10-29-2019 Mra head w/o contrst material Mavis Martínez Start: 10-29-2019 Mri brain brain stem w/o w/contrast material Mavis Martínez Start: 04-22-2012 Ligation of fallopian tube Celestino SERRANO Start: 04-22-2004 Appendectomy Celestino FLORIAN Appendectomy Mavis Martínez Comment on above: 2005; Colonoscopy Celestino SERRANO Ligation of fallopian tube D susan Martínez Comment on above: 2012; Reduction of closed patellar dislocation Mavis Martínez Comment on above: september 2004; Plan of Treatment Date Care Activity Detail Author Start: 2034 Zoster Vaccines (1 o f 2) Zoster Vaccines (1 of 2) [facility] Start: 12-02-2023 End: 12-02-2023 Patient encounter procedure 12/02/2023 4:30 PM EDT Office Visit [facility] [address] [place] [phone] Mavis Martínez MD [address] [place] [id number] [facility] Start: 01-31-2023 GAVIOTA, Provider : Mavis Martínez, Status: Pen, Time: 1:30 PM GAVIOTA, Provider: Mavis Martínez, Status: Pen, Time: 1:30 PM YI-Xtdmxkekp-Giwqomd n 204 DO Work Phone: Start: 12-21-2022 Influenza vaccination Influenz a Vaccine (#1) [facility] Start: 12-06-2022 Bacteria identified in Urine by Culture [facility] Start: 10-14-2022 Bacteria identified in Urine by Culture [facility] Start: 08-16-2022 Bacteria identified in Urine by Culture Urine Culture [facility] Start: 02-22-2021 FUVGENERAL, Provider : Mavis Martínez, Status: Pen, Time: 2:30 PM FUVGENERAL, Provider: Mavis Martínez, Status: Pen, Time: 2:30 PM MJ-Ebepycnug-Bspbki 170 DO Work Phone: Start: 10-29-2019 Mra head w/o contrst material MRA Head without Contrast IQ-Bkotwihsp-Txnldz 170 DO Work Phone: Start: 10-29-2019 Mri brain brain stem w/o w/contrast material MRI Brain w/wo Contrast DE-Evuyilrzk-Eojqmh 170 DO Work Phone: Start: 2006 DTaP/Tdap/Td Vaccine s (1 - Tdap) DTaP/Tdap/Td Vaccines (1 - Tdap) [facility] Start: 2005 Screening for malignant neoplasm of cervix [facility] Start: 2002 Diabetes mellitus screening Diabetes Screening [facility] Start: 2002 [facility]: 1985 MMR Vaccines (1 of 1 - Standard series) MMR Vaccines (1 of 1 - Standard series) [facility] Start: 1985 Varicella vaccination Varicell a Vaccines (1 of 2 - 2-dose childhood series) [facility] Start: 06-27-1985 COVID-19 Vaccine (#1) COVID-19 Vacci ne (#1) [facility] Start: 1984 Hepatitis B Vaccines (1 of 3 - 3-dose series) Hepatitis B Vaccines (1 of 3 - 3-dose series) [facility] Start: 1984 HIV screening HIV Screening [facility] Start: 1984 Lipid panel Lipid Panel [facility] Start: 1984 Yearly Adult Physical Yearly Adult P hysical [facility] RW-Fjnzjjuac-Tr nicolas 170 DO Work Phone: NEGATED: Highlighted row has been ruled out! Planned Goals not documented HS-Shetjgzjz-Xeuyhp 170 DO Work Phone: Immunizations Immunization Date Immunization Notes Care Provider Yaakov gloriacaterina 02-20-2011 influenza virus vaccine, split virus (incl. purified surface antigen) Keyana Akila Other [employer] Other Payers Date Payer Category Payer Private Health Insurance [id number] 2023 Unknown [id number] 2022 Self-pay [id number] 2021 Unknown 2021 Unknown [id number] 1984 Unknown [id number] [id number] 6 1984 Unknown [id number] 2.16.840.1.938859.3.579.2.35 6 1984 Unknown [id number] 2.16.840.1.195135.3.579.2.59 3 1984 Unknown [id number] 2.16.840.1.325865.3.579.2.59 3 1984 Unknown [id number] 2.16.840.1.357269.3.579.2.59 3 1984 Unknown [id number] 2.16.840.1.569585.3.579.2.59 3 1984 Unknown [id number] 2.16.840.1.082539.3.579.2.12 44 1984 Unknown [id number] 2.16.840.1.331559.3.579.2.12 44 1984 Unknown [id number] 2.16.840.1.856574.3.579.2.12 59 1984 Unknown [id number] 2.16.840.1.546849.3.579.2.12 59 1984 Unknown [id number] 2.16.840.1.729761.3.579.2.12 59 1984 Unknown [id number] 2.16.840.1.120864.3.579.2.72 7 1984 Unknown [id number] 2.16.840.1.574527.3.579.2.72 7 1984 Unknown [id number] 2.16.840.1.754263.3.579.2.72 7 1984 Unknown [id number] 2.16.840.1.795025.3.579.2.72 7 1984 Unknown [id number] 2.16.840.1.403664.3.579.2.72 7 1984 Unknown [id number] 2.16.840.1.256638.3.579.2.72 7 1984 Unknown [id number] 2.16.840.1.314122.3.579.2.72 7 1959 Unknown [id number] 1959 Unknown [id number] Private Health Insurance [facility] [id number] Unknown [id number] [id number] Unknown [employer]aysa BC/BS [id number] Unknown [id number] 2.16840.1.192342.3.579.2.53 1 Unknown [id number] 2.16840.1.131633.3.579.2.53 1 Unknown [id number] 2.16840.1.781117.3.579.2.53 1 Social History Date Type Detail Facility Assertion Tobacco smoking consumption unknown (finding) QG-Asvznradu-Vrunug 170 DO Work Phone: Start: 01-31-2023 Consumes alcohol occasionally Consumes alcohol occasionally HS-Efzcqksmj-Xuodxr 170 DO Work Phone: Start: 01-31-2023 Sex Assigned At F [facility] Start: 06-26-2019 End: 01-31-2023 Tobacco smoking status NHIS Never smoked tobacco (finding) [facility] Start: 1985 Sex Assigned At Female F [facility] Start: 01-31-2023 Tobacco use and exposure Smokeless tobacco non-user [facility] Work Phone: Start: 01-31-2023 End: 06-10-2023 Alcohol intake Ex-drinker (finding) [facility] Work Phone: Start: 1985 Sex Assigned At Not on file U [facility] Work Phone: Start: 01-21-2023 End: 01-31-2023 Exposure to SARS-CoV-2 (event) Unable to assess [facility] Start: 05-31-2023 End: 06-10-2023 Exposure to SARS-CoV-2 (event) Not sure [facility] Work Phone: NEGATED: Highlighted rowStart: NINF History of tobacco use Passive smoker [facility] Work Phone: Functional Status Date Assessment Result Facility 05-06-2023 Functional Status N/A [facility] 10-29-2022 Functional Status N/A [facility] NEGATED: Highlighted row Functional performance Functional status health issues are not documented Disease IQ-Bnfcugatw-Kqvssm 170 DO Work Phone: Mental Status Date Assessment Result Facility NEGATED: Highlighted row Cognitive function [Interpretation] Cognitive status health issues are not documented Disease MW-Sewoqrxhz-Ledosh 170 DO Work Phone: Clinical Notes 09-04-2020 to 06-10-2023 Ariadne Eason MA - 06/10/2023 3:30 PM Joselyn Martínez MD - 01/31/2023 2:00 PM EDTPatient Instructions Note Date & Type Note Facility 06-10-2023 History of Presen t illness Narrative Patient started the Emgality after her last visit- she states it is working really good. She states the goal was to eventually come off or at least decrease the topiramate. Migraines are better since starting the emgality. Experiencing maybe 2 migraines per month. Only had to use the rizatriptan once since February. Treating migraines tylenol or excedrin if migraine is not bad, if its a bad migraine she treats with rizatriptan. Tylenol takes about 10 minutes to kick in. Same with the rizatriptan. Has never really had to repeat treatmnet. Migraine occurs bilateral temples. Associated light and noise sensitivity, nausea. Ondansetron is helpful. Triggers are none in particular. Sleeping 6-8 hours per night on average. No trouble falling asleep States has trouble staying a sleep. No anxiety or depression occurrence Refill entered for Topiramate if needed. RECALL 02/01/24 Experiencing 2 migraines per month, Rarely debilitating. Treats with Rizatriptan and relieves completely in 60 min. Has sumatriptan injection but has not needed. Topamax 100 mg for prevention. NO side effect of word finding, cognitive fog or tingling. Tried for Emgality in past but insurance did not approve. They wanted her to do botox first. Her kidney numbers were off and her primary care would like her off of the topamax. Is seeing a brickmason. Went down from 150 to 100. See lives 1.5 hours away so botox is not practical. Migraine occurs bilateral temples. Associated light and noise sensitivity, nausea. Ondansetron is helpful. Triggers are none in particular. Sleep is OK. Trouble staying asleep. Averages 6 hours per night. Denies anxiety or depression. Is happy with current migraine experience Refills entered awaiting MD moya documented in this encounter [facility] Work Phone: 05-06-2023 Hospital Discharg e instructions Patient Education 05/06/2023 14:09:35 24-Hour Urine Collection 24-Hour Urine Collection Why am I having this test? A 24-hour urine specimen is a lab test that requires you to collect all of your urine for an entire day. This is sometimes called a timed urine test. It can provide more information than a single urine sample. There are many reasons to have this test. Your health care provider may order the test to check for or monitor the following conditions: High blood pressure. Kidney disease. Kidney stones. Urinary tract infections. . Diabetes. How do I prepare for this test? You may be asked to follow a special diet during or before the collection period. Follow any instructions from your health care provider. If no special instructions are given, you may eat and drink normally. Take aaba-ovi-dprlmls and prescription medicines only as told by your health care provider. Let your health care provider know about any medicines that you are taking, including ybch-pil-qlurkhf medicines, vitamins, herbs, and supplements. Choose a collection day when you can be at home or when you have a place to store the urine. All urine must be collected during the testing period. How do I do a 24-hour urine collection? When you get up in the morning, urinate in the toilet and flush. Write down the time. This will be your start time on the day of collection and your end time on the next morning. From the start time on, all of your urine should be kept in the collection jug that you received from the lab. If the jug that is given to you already has liquid in it, that is okay. Do not throw out the liquid or rinse out the jug. Urinate into a specimen container, such as a urinal or nichole that sits over the toilet. Pour the urine from the container into the collection jug. Be careful not to spill any of the urine. Use the equipment provided by the lab. Do not let any toilet paper or stool (feces) get into the jug. This will contaminate the sample. Stop collecting your urine 24 hours after you started. Collect the last specimen as close as possible to the end of the 24-hour period. Keep the jug cool in an ice chest or keep it in the refrigerator during collection. When the 24-hour collection is complete, take the jug to the lab as soon as possible. Keep the jug cool in an ice chest while you are bringing it to the lab. What do the results mean? Talk with your health care provider about what your results mean. Questions to ask your health care provider Ask your health care provider, or the department that is doing the test: When will my results be ready? How will I get my results? What are my treatment options? What other tests do I need? What are my next steps? Summary A 24-hour urine specimen is a lab test that requires you to collect all of your urine for an entire day. When you get up in the morning, urinate in the toilet and flush. Write down the time. For the next 24 hours, collect all of your urine in the collection jug that you received from the lab. Keep the jug cool while collecting the urine and while bringing it back to the lab. Take the jug of urine back to the lab as soon as possible after the collection period has ended. This information is not intended to replace advice given to you by your health care provider. Make sure you discuss any questions you have with your health care provider. Document Revised: 10/13/2021 Document Reviewed: 10/13/2021 [employer] Patient Education 2022 [employer]. Follow Up Care 11/13/2022 13:41:07 With:PRATIMA MELLO, Celestino Aleman, URL Address: [facility] [address] , [place] [address]- [phone] When: Unknown Comments:3-4 mos w/ KUB and metabolic workup [facility] [place] 01-31-2023 History of Presen t illness Narrative Experiencing 2 migraines per month, Rarely debilitating. Treats with Rizatriptan and relieves completely in 60 min. Has sumatriptan injection but has not needed. Topamax 100 mg for prevention. NO side effect of word finding, cognitive fog or tingling. Tried for Emgality in past but insurance did not approve. They wanted her to do botox first. Her kidney numbers were off and her primary care would like her off of the topamax. Is seeing a brickmason. Went down from 150 to 100. See lives 1.5 hours away so botox is not practical. Migraine occurs bilateral temples. Associated light and noise sensitivity, nausea. Ondansetron is helpful. Triggers are none in particular. Sleep is OK. Trouble staying asleep. Averages 6 hours per night. Denies anxiety or depression. Is happy with current migraine experience Refills entered awaiting MD auth documented in this encounter [facility] Work Phone: 01-31-2023 Instructions Mavis Martínez MD - 01/31/2023 2:00 PM EDT Try to get CGRP approved due to kidney issues on topamax and extreme drive for botox. documented in this encounter [facility] Work Phone: 12-06-2022 Evaluation note Encounter Date Diagnosis Assessment Notes Nov, Dysuria (ICD-10 - R30.0) Nov, Acute cystitis with hematuria (ICD-10 - N30.01) Discussed diagnosis and dipstick findings with patient. Will treat patient for UTI. Instructed patient to take antibiotic as prescribed, take with food, complete entire course of therapy even if feeling better. Allergies and recent antibiotic use were reviewed with patient. Advised patient culture was sent today and we will call with her results in 2-5 days. Patient instructed to push fluids. May take Pyridium for discomfort as prescribed. Patient symptoms should improve in the next 48 hours, if symptoms persist follow up with PCP or UC. Immediate eval by ER if back or flank pain, fever, chills, N/V, or any other concerning symptoms arise. Patient verbalizes understanding and is agreeable to treatment plan. [employer] Other [id number] Note [id number]:[id number] 11-13-2022 NoteCustom Cystoscopy with Stent Removal ? Voiding after the procedure: there may be some pain, burning, urgency, frequency and blood tingedurine following the procedure. These symptoms usually resolve within 2-5 days. Drink the amount of fluid it takes to keep the urine pink to yellow or clear in color. Drinking enough water and fluids will help to ease any discomfort after your procedure. ? If you are having problems that seem out of the ordinary, please call. ? If unable to contact your physician and you feel it is an emergency, go to the nearest emergency room or call 911 ? Diet ? you may resume your normal diet. ? Activity ? you may resume your normal activities ? Call if you have a fever over 100 degrees.[facility] 10-29-2022 Hospital Discharge instructions Patient Education 10/29/2022 09:55:58 Kidney Stones Kidney Stones Kidney stones are solid, rock-like deposits that form inside of the kidneys. The kidneys are a pairof organs that make urine. A kidney stone may form in a kidney and move into other parts of the urinary tract, including the tubes that connect the kidneys to the bladder (ureters), the bladder, and the tube that carries urine out of the body (urethra). As the stone moves through these areas, it can cause intense pain and block the flow of urine. Kidney stones are created when high levels of certain minerals are found in the urine. The stones are usually passed out of the body through urination, but in some cases, medical treatment may be needed to remove them. What are the causes? Kidney stones may be caused by: A condition in which certain glands produce too much parathyroid hormone (primary hyperparathyroidism), which causes too much calcium buildup in the blood. A buildup of uric acid crystals in the bladder (hyperuricosuria). Uric acid is a chemical that the body produces when you eat certain foods. It usually exits the body in the urine. Narrowing (stricture) of one or both of the ureters. A kidney blockage that is present at (congenital obstruction). Past surgery on the kidney or the ureters, such as gastric bypass surgery. What increases the risk? The following factors may make you more likely to develop this condition: Having had a kidney stone in the past. Having a family history of kidney stones. Not drinking enough water. Eating a diet that is high in protein, salt (sodium), or sugar. Being overweight or obese. What are the signs or symptoms? Symptoms of a kidney stone may include: Pain in the side of the abdomen, right below the ribs (flank pain). Pain usually spreads (radiates)to the groin. Needing to urinate frequently or urgently. Painful urination. Blood in the urine (hematuria). Nausea. Vomiting. Fever and chills. How is this diagnosed? This condition may be diagnosed based on: Your symptoms and medical history. A physical exam. Blood tests. Urine tests. These may be done before and after the stone passes out of your body through urination. Imaging tests, such as a CT scan, abdominal X-ray, or ultrasound. A procedure to examine the inside of the bladder (cystoscopy). How is this treated? Treatment for kidney stones depends on the size, location, and makeup of the stones. Kidney stones will often pass out of the body through urination. You may need to: Increase your fluid intake to help pass the stone. In some cases, you may be given fluids through an IV and may need to be monitored at the hospital. Take medicine for pain. Make changes in your diet to help prevent kidney stones from coming back. Sometimes, medical procedures are needed to remove a kidney stone. This may involve: A procedure to break up kidney stones using: ?A focused beam of light (laser therapy). ?Shock waves (extracorporeal shock wave lithotripsy). Surgery to remove kidney stones. This may be needed if you have severe pain or have stones that block your urinary tract. Follow these instructions at home: Medicines Take qizc-did-euiiowk and prescription medicines only as told by your health care provider. Ask your health care provider if the medicine prescribed to you requires you to avoid driving or using heavy machinery. Eating and drinking Drink enough fluid to keep your urine pale yellow. You may be instructed to drink at least 8 10 glasses of water each day. This will help you pass the kidney stone. If directed, change your diet. This may include: ?Limiting how much sodium you eat. ?Eating more fruits and vegetables. ?Limiting how much animal protein such as red meat, poultry, fish, and eggs you eat. Follow instructions from your health care provider about eating or drinking restrictions. General instructions Collect urine samples as told by your health care provider. You may need to collect a urine sample: ?24 hours after you pass the stone. ?8 12 weeks after passing the kidney stone, and every 6 12 months after that. Strain your urine every time you urinate, for as long as directed. Use the strainer that your health care provider recommends. Do not throw out the kidney stone after passing it. Keep the stone so it can be tested by your health care provider. Testing the makeup of your kidney stone may help prevent you from getting kidney stones in the future. Keep all follow-up visits as told by your health care provider. This is important. You may need follow-up X-rays or ultrasounds to make sure that your stone has passed. How is this prevented? To prevent another kidney stone: Drink enough fluid to keep your urine pale yellow. This is the best way to prevent kidney stones. Eat a healthy diet and follow recommendations from your health care provider about foods to avoid. You may be instructed to eat a low-protein diet. Recommendations vary depending on the type of kidney stone that you have. Maintain a healthy weight. Where to find more information National Kidney Foundation (NKF): www.kidney.org U[employer] Foundation (UCF): www.urologyhealth.org Contact a health care provider if: You have pain that gets worse or does not get better with medicine. Get help right away if: You have a fever or chills. You develop severe pain. You develop new abdominal pain. You faint. You are unable to urinate. Summary Kidney stones are solid, rock-like deposits that form inside of the kidneys. Kidney stones can cause nausea, vomiting, blood in the urine, abdominal pain, and the urge to urinate frequently. Treatment for kidney stones depends on the size, location, and makeup of the stones. Kidney stones will often pass out of the body through urination. Kidney stones can be prevented by drinking enough fluids, eating a healthy diet, and maintaining a healthy weight. This information is not intended to replace advice given to you by your health care provider. Make sure you discuss any questions you have with your health care provider. Document Revised: 12/27/2021 Document Reviewed: 12/11/2021 [employer] Patient Education 2022 [employer]. Follow Up Care 08/27/2022 09:52:31 With:PRATIMA MELLO, Celestino Aleman, URL Address: [facility] [address] , [place] [address]- [phone] When: Unknown Comments:KIMANI [facility] 06-24-2023 Evaluation note* Encounter Date Diagnosis Assessment Notes Treatment Notes Treatment Clinical Notes Sep, Dysuria (ICD-10 - R30.0) Sep, Acute UTI (ICD-10 - N39.0) Urinary tract infection (UTI) home care material was printed Drink plenty fluids, get plenty of rest. Take the Cipro and Pyridium as prescribed until gone. Keep your appointment with urology in October. Go to the ER for worsening symptoms or concerns. Take Tylenol or Motrin as needed for pain. [employer] Other 04-27-2023 Evaluation note* Encounter Date Diagnosis Assessment Notes Treatment Notes Treatment Clinical Notes Jul, Dysuria (ICD-10 - R30.0) Jul, Acute cystitis with hematuria (ICD-10 - N30.01) Meds as prescribed. Push fluids. Urine sent for culture and pt will be notified of results if any change needs to be made. Advised good hygiene and no sexual activity while on meds. Pt to f/u as needed with pcp for persistent or recurrent sx. Immediate eval in ER for abdominal pain, severe back pain, N/V/D, fever/chills, or severe dehydration. Pt understood and agreed to treatment plan. [employer] Other 11-22-2022 Chief complaint Narrative - Reported* An interactive audio and video telecommunication system which permits real time communications between the patient (at the originating site) and provider (at the distant site) was utilized to providethis telehealth service. * Verbal consent was requested and obtained from MARIA VICTORIA LI on this date, 03/13/2022 09:30 AM , fora telehealth visit. * Headaches UX-Nkdansmqj-Ofnmrgcd 204 DO Work Phone: [phone] Chief complaint Narrative - Reported* Neurologic Evaluation. * An interactive audio and video telecommunication system which permits real time communications between the patient (at the originating site) and provider (at the distant site) was utilized to providethis telehealth service. * Verbal consent was requested and obtained from MARIA VICTORIA LI on this date, 03/01/2022 01:30 PM , fora telehealth visit. * Follow up migraine management * yearly YK-Litqltqsi-Ugapbf 170 DO Work Phone: [phone]) 773-306611-10-2022 History of Present illness Narrative* Experiencing 1-2 migraine per month. * Treats with Rizatriptan and works in 10m min. Never has to repeat. * Has not needed Sumatriptan injection. * Migraine occurs right sided episcopalian. * Associated nausea, light and noise sensitivity. Has Zofran but has not needed with quick action of Rizatriptan. * Triggers are overheating and over exercising. * Continues Topiramate 150mg at HS. Denies tingling hands or feet, denies cognitive fog. * Sleeping well. * Denies anxiety or depression. 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 Li to our office for an evaluation management of the hyperchloremia and metabolic acidosis. As you know she has chronic migraine and currently takes Topamax for migraine prophylaxis. She likely has a non-anion gap metabolic acidosis likely due to the proximal RTA related to Topamax. She denies any history of GI losses or diarrhea. I have ordered UA to evaluate the urine pH. I have also ordered random urine sodium, urine potassium and urine chloride to calculate urine anion gap. Other possibility is paraproteinemia or MGUS. I have ordered a work-up to rule out this differential diagnosis. I have also ordered a renal ultrasound to evaluate the renal anatomy. Dec, Hyperchloremia (ICD-10 - E87.8) She has hypokalemia likely as a compensation of metabolic acidosis. Dec, Migraine (ICD-10 - G43.909) She has a chronic migraine take Topamax for prophylaxis. [employer] Other 11-09-2021 History of Present illness Narrative* An interactive audio and video telecommunication system which permits real time communications between the patient (at the originating site) and provider (at the distant site) was utilized to providethis telehealth service. Verbal consent was requested and confirmed. * Patient with history significant for chronic without aura here to discuss headaches. * Reports 1-2 headache days per month. Worst headache pain in past month was 8/10. * Prior to that control was good at 3 times per month. Easily treated with Rizatriptan * More often than not she wakes with migraine. * Had been completely treating migraine before past 2 months. * Has sumatriptan injection and uses occasionally. Gets dizzy when uses shot so only uses at HS. * Migraine occurs bilateral occipital. * Associated nausea, light and noise sensitivity. * No particular triggers. * Has tried the following medications and treatments: * Topamax no side effects, 150mg working well. Patient has had her tubes tied, is on the TriNessa forskin. * Sumatriptan injection helpful but with dizziness. * Rizatriptan helpful within 15 minutes, no side effects. * Past Meds: * Doxepin sedating, slept through the day. * This note was partially generated using the [employer] voice recognition system. There may be typographical errors, spelling, or punctuation errors that were not corrected prior to committing the note tothe medical record. GH-Edzwobiwp-Yjipndpr 204 DO Work Phone: [phone] Chief complaint Narrative - Reported* Neurologic Evaluation. * An interactive audio and video telecommunication system which permits real time communications between the patient (at the originating site) and provider (at the distant site) was utilized to providethis telehealth service. * Verbal consent was requested and obtained from MARIA VICTORIA LI on this date, 11/03/2020 02:00 PM , fora telehealth visit. * Follow up migraine management OX-Fsqbpwexf-Yviebe 170 DO Work Phone: [phone] History of Present illness Narrative* Past 2 months, migraines 4-5 days per week. No particular trigger for increase. * Prior to that control was good at 3 times per month. Easily treated with Rizatriptan * More often than not she wakes with migraine. * Treating with Rizatriptan and adding Excedrin migraine at some point during the day as well. Does not take away completely. Still left with residual headache. Prior to last flare rizatriptan alone was sufficient. * Had been completely treating migraine before past 2 months. * Has sumatriptan injection and uses occasionally. Gets dizzy when uses shot so only uses at HS. * Continues 100mg Topamax. has never been on higher dosing. * Tingling in fingers for first week on Topamax and no other side effect since. * Migraine occurs bilateral occipital. * Associated nausea, light and noise sensitivity. * No particular triggers. * Visited eye MD in august. No prescription change. * Baseline trouble staying asleep. Has not worsened. Is a light sleeper. * Denies anxiety or depression. * In on OCP for skin only has had a tubal ligation VA-Zeffvgiij-Pggxgi 170 DO Work Phone: Evaluation + Plan note No data available for this section [facility] evaluation + Plan note Future Appointments Appointment Date:08/28/2023 03:15:00 PM Scheduled Provider:Celestino SERRANO MD Location:[facility] Appointment Type:URO Office Visit [facility] evaluation noteNo assessment information available [facility] Work Phone: Evaluation noteNo InformationNort [employer] Other Evaluation note* Diagnosis Chronic migraine without aura, with intractable migraine, so stated, with status migrainosus Nausea Nausea alone documented in this encounter [facility] Work Phone: Evaluation note* Diagnosis Chronic migraine without aura, with intractable migraine, so stated, with status migrainosus documented in this encounter [facility] Work Phone: Hisubja general Narrative - Reported* Type Description Date Medical History migraines Medical History medicine Medical History hypercholesterolemia Surgical History appendectomy 2004 Surgical History 2 left knee surgeries 2001 & 05 Surgical History C SECTION/ TUBLIGATION 11/2012 Hospitalization History SEE ABOVE SURGERY [employer] Other Hiseokj general Narrative - Reported* Type Description Date Medical History migraines Medical History medicine Medical History hypercholesterolemia Surgical History appendectomy 2004 Surgical History 2 left knee surgeries 2001 & 05 Surgical History C SECTION/ TUBLIGATION 11/2012 Surgical History lithotripsy 10/2022 Hospitalization History SEE ABOVE [employer] Other History of Present illness Narrative* Patient with history significant for chronic without aura here to discuss headaches. * Was having bloodwork issues with magnesium and other electrolytes. Seeing Customer Support Specialist who is recommending going off of the Topamax. She notes that there are 3 medications she would need to start in order to continue with the Topamax. Notes that she felt really horrible on the doxepin in the past. * Migraine occurs right sided episcopalian. * Associated nausea, light and noise sensitivity. * Triggers are overheating and over exercising. * Has tried the following medications and treatments: * Topamax no side effects, 150mg working well. * Sumatriptan injection helpful but with dizziness. * Rizatriptan helpful within 15 minutes, no side effects. Has Zofran but has not needed with quick action of Rizatriptan. * Past Meds: * Doxepin sedating, slept through the day. UB-Hetymjwcr-Finafyxe 204 DO Work Phone: progress note No data available for this section [facility] reason for referral (narrative)* Consultation (Routine) - Authorized Specialty Diagnoses / Procedures Referred By Lissa ordaz Referred To Contact Neurology Diagnoses Chronic migraine without aura, with intractable migraine, so stated, with status migrainosus Procedures Follow Up In Neurology Mavis Martínez MD [address] [place] [id number] Referral ID Status Reason Start Date Expiration Date V isits Requested Visits Authorized [id number] Authorized 01/31/2023 07/30/2023 1 1 [facility] Work Phone: Family History No Family History Records Found Grandmother Name Dates Details Family history of malignant neoplasm(V16.9, Z80.9) Status:Active Mother Name Dates Details Family history of malignant neoplasm(V16.9, Z80.9) Status:Active Unknown Family Member Name Dates Details Family history of malignant neoplasm: Mother, Grandmother(V16.9, Z80.9) Status:Active Unknown Family Member Name Dates Details Family history of malignant neoplasm: Mother, Grandmother(V16.9, Z80.9) Status:Active Unknown Family Member Name Dates Details Family history of malignant neoplasm: Mother, Grandmother(V16.9, Z80.9) Status:Active Unknown Family Member Name Dates Details Family history of malignant neoplasm: Mother, Grandmother(V16.9, Z80.9) Status:Active Unknown Family Member Name Dates Details Family history of malignant neoplasm: Mother, Grandmother(V16.9, Z80.9) Status:Active Unknown Family Member Name Dates Details Family history of malignant neoplasm: Mother, Grandmother(V16.9, Z80.9) Status:Active Relationship Condition Age at Onset Recorded Date/T ryan Not Specified Malignant neoplasm of colon Unknown Chief Complaint Headaches Summary Purpose Advance Directives No Advanced Directives Records Found Advance Directive Response Recorded Date/ Time Advance Directives No March 4:07pm Chief Complaint and Reason for Visit Chief Complaint R30.0 Dysuria Chief Complaint R30.0 Additional Source Comments REASON FOR VISIT (unrecogniz ed section and content) Reason Comments Migraine Follow up Reason Comments Migraine Specialty Diagnoses / Procedures Referred By Contac t Referred To Contact Neurology Diagnoses Chronic migraine without aura, with intractable migraine, so stated, with status migrainosus Procedures Follow Up In Neurology Mavis Martínez MD [address] [address] Referral ID Status Reason Start Date Expiration Date V isits Requested Visits Authorized [id number] Authorized 01/31/2023 07/30/2023 1 1 INFORMATION SOURCE (unrecogn ized section and content) DATE CREATED AUTHOR 03/13/2022 [facility] DATE CREATED AUTHOR AUTHOR'S ORGANIZ ATION 03/13/2022 [employer] DATE CREATED AUTHOR AUTHOR'S ORGANIZ ATION 08/29/2022 [facility] DATE CREATED AUTHOR AUTHOR'S ORGANIZ ATION 12/15/2022 [facility] DATE CREATED AUTHOR AUTHOR'S ORGANIZ ATION 06/11/2023 [facility] DATE CREATED AUTHOR AUTHOR'S ORGANIZ ATION 07/10/2023 [facility] EPIC DATE CREATED AUTHOR AUTHOR'S DEVIN ATWISAM 08/11/2023 Mitchell Cama[facility] Care Teams (unrecognized sec tion and content) Team Status: Inactive Member Role Status Dates Kena Snider PA-C Attending Provider Active Team Status: Inactive Member Role Status Dates Kena Snider PA-C Attending Provider Active PHYSICIAN NO FAMILY Primary Care Provider Active Team Status: Inactive Member Role Status Dates TOM Chu Attending Provider Active Team Status: Inactive Member Role Status Dates TOM Chu Attending Provider Active PHYSICIAN NO FAMILY Primary Care Provider Active Team Status: Inactive Member Role Status Dates Ella Gustafson APRN Attending Provider Active Panel Maker Relationship Specialty Start Date End Date Karen Harmon MD [address] [place] [address] PCP - General 10/04/1998 Panel Maker Relationship Specialty Start Date End Date Karen Harmon MD [address] [place] [address] PCP - General 10/04/1998 Goals (unrecognized section and content) Goals may be documented in a n alternate section FOR RECORDS PERTAINING TO PATIENTS WHO ARE OR HAVE BEEN ENROLLED IN A CHEMICAL DEPENDENCY/SUBSTANCEABUSE PROGRAM, SOME INFORMATION MAY BE OMITTED. This clinical summary was aggregated from multiple sources. Caution should be exercised in using it in the provision of clinical care. This summary normalizes information from multiple sources, and as a consequence, information in this document may materially change the coding, format and clinical context of patient data. In addition, data may be omitted in some cases. CLINICAL DECISIONS SHOULD BE BASED ON THE PRIMARY CLINICAL RECORDS. [facility]. provides no warranty or guarantee of the accuracy or completeness of information in this document.
[2023-09-21 12:13] LABS: Calcium Urine Random 6.7 mg/dL (5.1-21.0); Creatinine Urine Random 55.51 mg/dL (20.00-300.00)
[2023-09-21 12:17] LABS: Calcium 8.5 mg/dL (8.5-10.1); Carbon Dioxide 27.5 mmol/L (21.0-32.0); Chloride 103 mmol/L (98-107); Estimated GFR (African America >60 (>=60); Estimated GFR (Non-African Ame >60 (>=60); Phosphorus 3.9 mg/dL (2.6-4.7); Sodium 136 mmol/L (136-145); Uric Acid 4.9 mg/dL (2.6-6.0)
[2023-09-21 13:40] LABS: Total Volume 24 Hour Urine 2000 mL/24hr
[2023-09-22 08:08] LABS: Magnesium, U 3.4 mg/dL (Not Estab.); Phosphorus, Urine 36.5 mg/dL (Not Estab.); Phosphorus,Urine 24h 730 mg/24 hr (261-1078); Uric Acid, Urine 23.9 mg/dL (Not Estab.)
[2023-09-22 11:07] LABS: PTH, Intact 36 pg/mL (15-65)
[2023-09-23 15:07] LABS: Citric Acid, U, 24hr 164 mg/24 hr (320-1240); Citric Acid, Urine 82 mg/L (Undefined); Oxalates, Urine 1 mg/L (Undefined); Oxalates, Urine 24hr 2 mg/24 hr (4-31)
== END 2023-09-21 11:06 | disposition home or self-care (01) ==
PROVIDERS: PCP Family Medicine; Visit Provider Urology
DX: N20.0 Calculus of kidney (principal)
CPT/HCPCS: 36415; 81050; 82310; 82340; 82374; 82435; 82507; 82565; 82570; 83735; 83945; 83970; 84100; 84105; 84295; 84520; 84550; 84560

== ENCOUNTER 2023-10-10 10:06 | Outpatient (OUT) | payer OTHER, SELFPAY ==
--- NOTE | 2023-10-10 10:11 | XR_ITS ---
The [address] [address] Patient Name: MARIA VICTORIA LI MRN: [id number] date: 1985 Sex: F Assigned Patient Location: [facility] Current Patient Location: Accession/Order Number: [id number] Exam Date: 10/10/2023 10:16 Report Date: 10/11/2023 05:32 At the request of: ANNABELLE ANDUJAR Procedure: XR abdomen 1V EXAMINATION: XR abdomen 1V HISTORY: Kidney Stone COMPARISON: XR abdomen 11/08/2022 FINDINGS: KIDNEY/URETER - RIGHT: No visible renal or ureteral calcifications. KIDNEY/URETER - LEFT: No visible renal or ureteral calcifications. PELVIS: New 2 mm calcification within right pelvis; phleboliths versus distal ureteral stone. Additional calcifications are stable and favor phleboliths. BOWEL: No abnormal dilation or deviation. BONES: No acute abnormality. OTHER: Negative. No abnormal gaseous collections. XR/XR abdomen 1V IMPRESSION: 1. No visible stones within the kidneys. 2. New right pelvic phlebolith versus distal ureteral stone. Electronically authenticated by: TAMIA BAPTISTE Date: 10/11/2023 05:32
--- OUTSIDE RECORDS SUMMARY | 2023-10-10 10:14 | XMS_ITS | CCD ---
Author Organization [facility] CliniSyhi Care Team Providers Care Senior System Operator Name Role Phone Mavis Martínez Unavailable Unavailable Karen Harmon V Unavailable Unavailable Karen Harmon V Unavailable [phone] Unavailable Unavailable Akila Keyana Unavailable Unavailable Unavailable Ms. JESÚS LUNG STUART Attending Unavailable Dr. Karen Harmon Primary Care Unavailleena CRANDALL Ms. LUNG STUART Referring Unavailable Dr. MAVIS MARTÍNEZ Referring Magalie vailable TANYA, Dr. MAVIS DEVRIES Attending Magalie vailable Faustino, Dr. Jones Primary Care UnavailKena Zhu Unavailable KELLE Snider Attending Provider [phone] AKILA, KEYANA Consulting Unavailable DR CRISTI MARTINEZ Primary Care Unavailable AKILA, KEYANA Admitting Unavailable KEYANA WILBURN Attending Unavailable DR CRITSI MARTINEZ Primary Care Unavailable KIEPERT, ITALIA Admitting Unavailable ELIZABETHEPERT, ITALIA Attending Unavailable ASAT, ITALIA Consulting Unavailable DR CRISTI MARTINEZ Primary Care Unavailable KIEPERT, ITALIA Admitting Unavailable KIEPERT, ITALIA Attending Unavailable ELIZABETHEPERT, ITALIA Consulting Unavailable STEVEN GRECO Admitting Unavailable DR CRISTI MARTINEZ Primary Care Unavailable STEVEN GRECO Attending Unavailable STEVEN GRECO Consulting Unavailable ARIANA, MARITZA Consulting Unavailable Dai Vaughn Unavailable NO FAMILY, PHYSICIAN Primary Care Provider Unava ilable TOM Vaughn Attending Provider [phone] CRISTI MARTINEZ Primary Care Physician TOM Vaughn Attending Provider [phone] NO FAMILY, PHYSICIAN Primary Care Provider Unava ilable SEBASTIAN Gustafson Attending Provider [phone] Ella Gustafson Unavailable Kena Snider Attending Unavailable NO FAMILY, PHYSICIAN Primary Care Unavailable Kena Snider Admitting Unavailable NO FAMILY, PHYSICIAN Primary Care Unavailable Dai Vaughn Admitting Unavailable Dai Vaughn Attending Unavailable Ella Gustafson Admitting Unavailable Ella Gustafson Attending Unavailable Faustino Evans MD, Jennifer Primary Care Provider [phone] MAVIS MARTÍNEZ Attending Unavailable FAUSTINO Evans, KAREN Primary Care Unavailable MAVIS MARTÍNEZ Attending Unavailable MAVIS MARTÍNEZ Referring Unavailable FAUSTINO Evans, KAREN Primary Care Unavailable CRISTI MARTINEZ Attending Unavailable PETITTI, SILVESTRE Cavazos Attending Unavailable MARTINEZ, CRISTI Cavazos Referring Unavailable PETITTI, SILVESTRE Cavazos Attending Unavailable KAREN ALVARADO Attending Unavailable SERRANO, Celestino Aleman Attending Unavailable SERRANO, Celestino Aleman Attending Unavailable STEVEN MEYER Referring Unavailable SERRANO, Celestino R Referring Unavailable SERRANO, Celestino R Attending Unavailable SERRANO, Celestino R Attending Unavailable SERRANO, Celestino R Admitting Unavailable SERRANO, Celestino R Referring Unavailable SERRANO, Celesitno R Attending Unavailable SERRANO, Celestino R Attending Unavailable Allergies Allergy Classification Reported Allergen(s) Allergy Type Date of Onset Reaction(s) Facility Opioid Agonists (2 sources) Morphine; Translations: [Morphine Sulfate (Concentrate) SOLN] Drug Allergy LG-Arerkdedi-Mr nicolas 170 DO Work Phone: (14 sources) Morphine; Translations: [Morphine Sulfate (Concentrate) SOLN] Drug Allergy 3 anaphylaxis, Weal (disorder), Unknown [facility] (7 sources) Latex Exam Gloves MISC; Translations: [Latex Exam Gloves MISC] Allergy to drug (finding) TI-Rgkwdeuza-Or nicolas 170 DO Work Phone: (5 sources) Latex rubber gloves Drug allergy [facility] Other (11 sources) Latex; Translations: [latex] Allergy to substance 6 Weal (disorder), Unknown [facility] (7 sources) Morphine; Translations: [morphine] Drug Allergy 6 Hives [facility] Medications Current Medications Medication Drug Class(es) Dates [...] Quantity: 1 Refills: 11 Ordered: 13-Mar-2022 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, 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 Start : 13-Mar-2022 Active Monthly dose, [...] Start: 08-16-2022 take 1 capsule by mo ut every twelve hours Macrobid 100 MG 1 [...] sources) Barbiturate, Central Nervous System Stimulant, Methylxanthine Gvxheskkla-JKYL-S affeine 50-325-40 MG take 1 tablet every 4 to 6 hours if needed for headache MAX OF 2 DAYS PER WEEK Oral for 30 Days Not-Taking acetaminophen 325 mg / HYDROcodone bitartrate 5 mg oral tablet (3 sources) Opioid Agonist Start: 03-05-2018 End: 06-26-2019 take 1 tablet by mouth every six hours Hydrocodone-Aceta minophen ([place]) 5-325 mg tablet Discontinued 1 TAB PO [...] Quantity: 6 Refills: 3 Ordered: 28-Feb-2021 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 00TIFF Normal [facility] Lab Reportson 09-23-2023 Lab Reports [id number]#1. 00TIFF [facility] Lab Reports [id number]#1 .00TIFF [facility] Lab Reports [id number]#1 .00TIFF Normal [facility] Patient Educationon 05-06-19 Patient Education Urology 24-Hour Urine Collection [...] may eat and drink normally. ? Take kcqi-rte-bnmqqpb and prescription medicines only as told by your health care provider. ? Let your health care provider know about any medicines that you are taking, including cagy-ido-pglyufa medicines, vitamins, herbs, and supplements. ? Choose [...] provider. Document Revised: 10/13/2021 Document Reviewed: 10/13/2021 [employer] Patient Education ? 2022 [employer]. [facility] Urology Office/Clinic Noteon 05-06-2023 Urology Office/Clinic Note [...] With When Contact Information PRATIMA MELLO, Celestino Aleman, URL [facility] [address], [place] [address]- [phone] Additional Instructions: 3-4 mos w/ KUB and metabolic workup Patient Education 24-Hour Urine Collection INivia, personally scribed for Dr. Serrano on 05/06/2023 14:15:18. . Documentation recorded by the scribe, Nivia Vieira, accurately reflects the services(s) I performed and [...] Protein Urine Dipstick: Negative (05/06/23 13:35:00) Specific [place] Urine Dipstick: 1.025 (05/06/23 13:35:00) Urine Appearance Urine Dipstick: Clear (05/06/23 13:35:00) Urine Color Urine Dipstick: Light yellow (05/06/23 13:35:00) Urobilinogen Urine Dipstick: Normal 0.2-1 EU/dl (05/06/23 13:35:00) pH Urine Dipstick: 6.5 (05/06/23 13:35:00) Normal [facility] Comment on above: Result Comment: Elec tronically Signed By: Celestino SERRANO MD\.br\Date and Time Signed: 05/06/23 14:19 EST\.br\Electronically Co-Signed By: Nivia Vieira\.br\Date and Time Co-Signed: 05/06/23 14:15 EST Urinalysis - AUTOMATEDon Appearance (U) cloudy [employer] Other Bilirubin Ql (U) Negative [employer] Other Color (U) yellow [employer] Other Glucose Ql (U) Negative [employer] Other Hemoglobin Ql (U) moderate [employer] Other Ketones Ql (U) Negative [employer] Other Leukocyte esterase Test strip Ql (U) small [employer] Other Nitrite Ql (U) Negative [employer] Other pH (U) 6.5 [pH] [employer] Other Protein Ql (U) Negative [employer] Other Specific gravity (U) [Rel density] 1.025 [employer] Other Urobilinogen (U) [Mass/Vol] 0.2 mg/dL [employer] Other Urinalysis - AUTOMATED [employer] Other Urine Cultureon 12-06-2022 Bacteria identified Cx Nom (U) ORGANISM: Escherichia coli (O:ESCCOL) [place] Count 40,000 Aerobic DOMINGO Charge (NMIC56) ---- [...] RESISTANT TO ALL B-LACTAM DRUGS. PERFORMED BY: [place] [id number] PATHOLOGIST FLYER BUILDER ELVA MCCLURE M.D. [facility] Comment on above: Performed By: #### C UU #### [address] Consent for Procedure/Surger yon 11-13-2022 Consent for Procedure/Surgery [id number] .00CD:127 Normal [facility] Consent for Treatmenton 10-21 Consent for Treatment [id number]#1 .00CD:127 [facility] IntraOperative Documentson 0 11-13-2022 IntraOperative Documents [id number] .00CD:127 Normal [facility] Main OR Intraoperative Recor don 11-13-2022 Main OR Intraoperative Record IntraOp Document Type FTURO Summary Primary Physician: Celestino SERRANO MD Finalized Date/Time: 11/13/22 13:39:22 Pt. Name: MARIA VICTORIA LI/Sex: 1985 Female Med Rec #: [id number] Physician: Celestino SERRANO MD Financial #: [id number] Pt. 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 - Primary Scrub - Primary Time In 11/13/22 13:31:00 11/13/22 13:31:00 11/13/22 13:31:00 Time Out 11/13/22 13:44:00 11/13/22 13:44:00 11/13/22 13:44:00 Procedure CYSTOSCOPY LOCAL WITH CYSTOSCOPY LOCAL WITH CYSTOSCOPY LOCAL WITH STENT REMOVAL(Left) STENT REMOVAL(Left) STENT REMOVAL(Left) Comments Last Modified By: Joyce RN, CNOR, Joyce RN, RICKYOR, Joyce RN, RICKYOR, Betsy 11/13/22 Betsy 11/13/22 Betsy 11/13/22 13:39:15 13:39:15 13:39:15 Entry 4 Case Attendee Agustin Mann Role Performed Staff - Other Time In 11/13/22 13:31:00 Time Out 11/13/22 13:44:00 Procedure CYSTOSCOPY LOCAL WITH STENT REMOVAL(Left) Comments orienting Last Modified By: DARLENE Cook RN, Ruthann 11/13/22 13:39:15 Surgical Procedures FTURO Entry 1 Procedure Description Procedure CYSTOSCOPY LOCAL WITH Modifiers Left STENT REMOVAL Surgeon Description CYSTO LEFT STENT REMOVAL Primary Procedure Yes Primary Surgeon Celestino SERRANO MD Start 11/13/22 13:34:00 Stop 11/13/22 13:39:00 Anesthesia Type Local Surgical Service Urology Wound Class 2 - Clean-Contaminated Last Modified By: DARLENE Cook RN, Ruthann 11/13/22 13:39:18 General Case Data FTURO Pre-Care [...] Position Verified Availability Equipment, Medication Time Out Celestino SERRANO MD, Verified (If Participants Joyce HERNANDEZ, DARLENE, Applicable) Elie Meyer CST, Johnathan Toro Adam A Time Out Complete 11/13/22 13:31:00 Allergies Reviewed? [...] Ruthann 11/13/22 13:39:07 Case Comments Finalized By: DARLENE Cook RN, Ruthann Document Signatures Signed By: DARLENE Cook RN, Ruthann 11/13/22 13:39 Normal [facility] Main OR Preoperative Recordo n 11-13-2022 Main OR Preoperative Record Holding Area Document Type FTURO Summary Primary Physician: Celestino SERRANO MD Finalized Date/Time: 11/13/22 13:35:37 Pt. Name: MARIA VICTORIA LI/Sex: 1985 Female Med Rec #: [id number] Physician: Celestino SERRANO MD Financial #: [id number] Pt. Type: O Room/Bed: / Admit/Disch: 11/13/22 [...] left lower abd. abd. Skin Integrity Intact, [place], Warm, & Intact, [place], Warm, & Dry Dry Vitals - EU Blood Pressure 147/85 147/85 Pulse 60 bpm 60 bpm Respirations 16 br/min 16 br/min SPO2 100 % 100 % Additional Specimens Collected Specimens Comment Residual Amount - Post Void RN Reviewed Yes Last Modified By: Marjan Mcintyre LPN, RN, DARLENE, 11/13/22 13:05:48 Betsy 11/13/22 13:35:33 General Comments: Temp 36.7 Finalized By: DARLENE Cook RN, Ruthann Document Signatures Signed By: Marjan Mcintyre LPN 11/13/22 13:05 DARLENE Cook RN, Ruthann 11/13/22 13:35 Normal [facility] Operative Reporton Operative Report Patient: MARIA [...] procedure well and was subsequently discharged home. [facility] Comment on above: Result Comment: Elec tronically Signed By: PRATIMA MELLO, Celestino Boudreaux\Date and Time Signed: 11/13/22 13:40 EDT Outpatient Surgery Discharge Instructionon 11-13-2022 Outpatient Surgery Discharge Instruction [id number] .00CD:127 [facility] RAD - MISCon 11-09-2022 [facility] [id number] .00CD:127 [facility] Pre-Certification Formon Pre-Certification Form [id number] .00CD:127 [facility] Pre-Certification Formon Pre-Certification Form [id number]#1 .00CD:127 [facility] Lab Reportson 11-02-2022 Lab Reports [id number]#1 .00CD:127 [facility] RAD - MISCon 11-02-2022 RAD [facility] [id number]#1 .00CD:127 [facility] Consent for Procedure/Surger yon 11-01-2022 Consent for Procedure/Surgery [id number] .00CD:127 [facility] Operative Reporton Operative Report [id number]#1 .00CD:127 [facility] Formson 10-30-2022 Forms [id number]#1 .00CD:127 [facility] Ambulatory Visit Summaryon 0 10-29-2022 Ambulatory Visit Summary MARIA VICTORIA LI :1985 Visit Date:10/29/2022 Ambulatory Visit Instructions Your Diagnosis Kidney stone Family history of kidney stone Tests Performed Urnls Dip Stick Auto w/o Microscopy POC 36230 XR Abdomen 1 View -- Results Pending -- Please visit your patient portal for your results or contact your primary care physician. Your Care Team Attending Physician - PRATIMA MELLO, Celestino Aleman Primary Care Physician - MICHELLE MELLO, CRISTI Referring Physician - STEVEN MEYER This Is [...] [facility] [address] , [place] [address]- [phone] Medications What How Much When Instructions Unchanged magnesium oxide (magnesium oxide 400 mg oral capsule) Every day Contact prescribing physician if questions or concerns Unchanged topiramate (Topamax 100 mg Tab) 2 times a day Contact prescribing physician if questions or concerns Test Results Urnls Dip Stick Auto w/o Microscopy POC 82217 (10/29/2022) Bilirubin Urine Dipstick - Negative Blood Urine Dipstick - Trace-lysed Glucose Urine Dipstick - Negative Ketones Urine Dipstick - Negative Leukocytes Urine Dipstick - Negative Nitrite Urine Dipstick - Negative Protein Urine Dipstick - Negative Specific [place] Urine Dipstick - 1.020 Urine Appearance Urine [...] t (more content not included)... Normal [facility] Patient Educationon 10-30-19 23 Patient Education Urology [...] these instructions at home: Medicines ? Take nxpm-wjk-wvkujlr and prescription medicines only as told by [...] and follow (more content not included)... Normal [facility] Urology Office/Clinic Noteon 10-29-2022 Urology Office/Clinic Note Chief Complaint kidney stones and hematuria HPI Staff Referral for hematuria and kidney stones. Was seen at the [facility] ED on 08/24/22 with complaints of [...] URL [facility] [address], [place] [address]- [phone] (more content not included)... Normal [facility] Comment on above: Result Comment: Elec tronically Signed By: Celestino SERRANO MD\.br\Date and Time Signed: 10/29/22 10:06 EDT\.br\Electronically Co-Signed By: Nivia Vieira\.br\Date and Time Co-Signed: 10/29/22 10:01 EDT Urine Cultureon 10-14-2022 Bacteria identified Cx Nom (U) Reason for Exam Dysuria Urine ORGANISM: Escherichia coli (O:ESCCOL) [place] Count 75,000 Aerobic DOMINGO Charge (NMIC56) ---- [...] RESISTANT TO ALL B-LACTAM DRUGS. PERFORMED BY: [place] [address] PATHOLOGIST [employer]YER BUILDER ELVA MCCLURE M.D. Normal [facility] Comment on above: Performed By: #### C UU #### [facility] [address] [place] [address] Urine culture routineOrdered By: Dai Vaughn on 10-14-2022 Bacteria identified Cx Nom (U) Escherichia coli [facility] Urinalysis - AUTOMATEDon Appearance (U) cloudy [employer] Other Bilirubin Ql (U) Negative [employer] Other Color (U) dark yellow [employer] Other Glucose Ql (U) Negative [employer] Other Hemoglobin Ql (U) large [employer] Other Ketones Ql (U) Negative [employer] Other Leukocyte esterase Test strip Ql (U) small [employer] Other Nitrite Ql (U) Positive [employer] Other pH (U) 5.5 [pH] [employer] Other Protein Ql (U) 100 [employer] Other Specific gravity (U) [Rel density] >=1.030 [employer] Other Urobilinogen (U) [Mass/Vol] 0.2 mg/dL [employer] Other Urinalysis - AUTOMATED [employer] Other CT ABD/PELVIS WO CONon 08-25 CT [...] LANE Date: 2022-08-24 22:[address] [facility] CBC AUTO DIFFon 08-24-2022 BASO # 0.1 103/ul Normal 0.0-0.1 [facility] Comment on above: Performed By: #### C BC #### [facility] [address] [place] [address] Dr. Carolina Rojo Basophils/100 WBC (Bld) 0.6 % Normal 0.2-2.[address] [facility] Comment on above: Performed By: #### C BC #### [facility] [address] [place] [address] Dr. Carolina Rojo EO # 0.1 103/ul Normal 0.0-0.[address] [facility] Comment on above: Performed By: #### C BC #### [facility] [address] [place] [address] Dr. Carolina Rojo Eosinophils/100 WBC (Bld) 0.7 % Critically low 0.9-7.[address] [facility] Comment on above: Performed By: #### C BC #### [facility] [address] [place] [address] Dr. Carolina Rojo Erythrocyte distribution width (RBC) [Ratio] 13.6 % Normal 11.0-15.0 [facility] Comment on above: Performed By: #### C BC #### [facility] [address] [place] [address] Dr. Carolina Rojo Hematocrit (Bld) [Volume fraction] 38.1 % Normal 36.0-48.0 [facility] Comment on above: Performed By: #### C BC #### [facility] [address] [place] [address] Dr. Carolina Rojo Hemoglobin (Bld) [Mass/Vol] 12.8 g/dL Normal 12.0-16.[address] [facility] Comment on above: Performed By: #### C BC #### [facility] [address] [place] [address] Dr. Carolina Rojo IG # 0.03 10e3/ul Normal 0.00-0.[address] [facility] Comment on above: Performed By: #### C BC #### [facility] [address] [place] [address] Dr. Carolina Rojo IG % 0.4 % Normal 0.0-0.[address] [facility] Comment on above: Performed By: #### C BC #### [facility] [address] [place] [address] Dr. Carolina Rojo LYMPH # 2.8 103/ul Normal 1.2-3.[address] [facility] Comment on above: Performed By: #### C BC #### [facility] [address] [place] [address] Dr. Carolina Rojo Lymphocytes/100 WBC (Bld) 33.4 % Normal 20.5-60.0 [facility] Comment on above: Performed By: #### C BC #### [facility] [address] [place] [address] Dr. Carolina Rojo MANUAL DIFF REQ NO Normal [facility] Comment on above: Performed By: #### C BC #### [facility] [address] [place] [address] Dr. Carolina Rojo MCH (RBC) [Entitic mass] 29.8 pg Normal 26.7-34.0 [facility] Comment on above: Performed By: #### C BC #### [facility] [address] [place] [address] Dr. Carolina Rojo MCHC (RBC) [Mass/Vol] 33.6 g/dL Normal 29.9-35.[address] [facility] Comment on above: Performed By: #### C BC #### [facility] [address] [place] [address] Dr. Carolina Rojo MCV (RBC) [Entitic vol] 88.6 fL Normal 81.0-99.0 [facility] Comment on above: Performed By: #### C BC #### [facility] [address] [place] [address] Dr. Carolina Rojo MONO # 0.5 103/ul Normal 0.3-0.[address] [facility] Comment on above: Performed By: #### C BC #### [facility] [address] [place] [address] Dr. Carolina Rojo Monocytes/100 WBC (Bld) 6.0 % Normal 1.7-12.[address] [facility] Comment on above: Performed By: #### C BC #### [facility] [address] [place] [address] Dr. Carolina Rojo NEUT # 4.9 103/ul Normal 1.4-6.[address] [facility] Comment on above: Performed By: #### C BC #### [facility] [address] [place] [address] Dr. Carolina Rojo Neutrophils/100 WBC (Bld) 58.9 % Normal 43.0-75.0 [facility] Comment on above: Performed By: #### C BC #### [facility] [address] [place] [address] Dr. Carolina Rojo Platelet mean volume (Bld) [Entitic vol] 9.8 fL Normal 9.5-13.[address] [facility] Comment on above: Performed By: #### C BC #### [facility] [address] [place] [address] Dr. Carolina Rojo PLT 253 103/ul Normal 150-[address] [facility] Comment on above: Performed By: #### C BC #### [facility] [address] [place] [address] Dr. Carolina Rojo RBC 4.30 106/ul Normal 4.20-5.[address] [facility] Comment on above: Performed By: #### C BC #### [facility] [address] [place] [address] Dr. Carolina Rojo WBC 8.3 103/ul Normal 4.0-11.[address] [facility] Comment on above: Performed By: #### C BC #### [facility] [address] [place] [address] Dr. Carolina Rojo CULTURE URINEon 08-24-2022 CULTURE URINE Culture Observations : MODERATE GROWTH OF MIXED GENITAL SHANNON. NO POTENTIAL PATHOGENS SEEN. Normal [facility] Comment on above: Performed By: #### C BC #### [facility] [address] [place] [address] Dr. Carolina Rojo ER URINE PROFILEon 3 Bilirubin Ql (U) Negative Normal NEGATIVE [facility] Comment on above: Performed By: #### C BC #### [facility] [address] [place] [address] Dr. Carolina Rojo Clarity (U) CLEAR Normal CLEAR [facility] Comment on above: Performed By: #### C BC #### [facility] [address] [place] [address] Dr. Carolina Rojo Color (U) LT. YELLOW Normal YELLOW [facility] Comment on above: Performed By: #### C BC #### [facility] [address] [place] [address] Dr. Carolina Rojo ERUAHD A micrscopic examination will be performed if indicated. Normal [facility] Comment on above: Performed By: #### C BC #### [facility] [address] [place] [address] Dr. Carolina Rojo Glucose Ql (U) Negative Normal NEGATIVE [facility] Comment on above: Performed By: #### C BC #### [facility] [address] [place] [address] Dr. Carolina Rojo Hemoglobin Ql (U) TRACE-INTACT Abnormal NEGATIVE [facility] Comment on above: Performed By: #### C BC #### [facility] [address] [place] [address] Dr. Carolina Rojo Ketones Ql (U) Negative Normal NEGATIVE [facility] Comment on above: Performed By: #### C BC #### [facility] [address] [place] [address] Dr. Carolina Rojo LEUKOCYTES TRACE Abnormal NEGATIVE [facility] Comment on above: Performed By: #### C BC #### [facility] [address] [place] [address] Dr. Carolina Rojo Nitrite Ql (U) Negative Normal NEGATIVE [facility] Comment on above: Performed By: #### C BC #### [facility] [address] [place] [address] Dr. Carolina Rojo pH (U) 7.0 [pH] Normal 5-9 [facility] Comment on above: Performed By: #### C BC #### [facility] [address] [place] [address] Dr. Carolina Rojo SPEC GRAVITY 1.020 Normal 1.005-<=1.025 [facility] Comment on above: Performed By: #### C BC #### [facility] [address] [place] [address] Dr. Carolina Rojo UA PROTEIN Negative Normal NEGATIVE/ TRACE [facility] Comment on above: Performed By: #### C BC #### [facility] [address] [place] [address] Dr. Carolina Rojo UR MICRO IND INDICATED Normal [facility] Comment on above: Performed By: #### C BC #### [facility] [address] [place] [address] Dr. Carolina Rojo Urobilinogen Qn (U) 0.2 {Daysi'U}/dL Normal 0.2 - 1. 0 [facility] Comment on above: Performed By: #### C BC #### [facility] [address] [place] [address] Dr. Carolina Rojo PROF CHEM 8 (BAS METB)on Anion gap [Moles/Vol] 16.2 mmol/L Normal [facility] Comment on above: Performed By: #### B MP #### [facility] [address] [place] [address] Dr. Carolina Rojo Calcium [Mass/Vol] 8.7 mg/dL Normal 8.5-10.1 [facility] Comment on above: Performed By: #### B MP #### [facility] [address] [place] [address] Dr. Carolina Rojo Chloride [Moles/Vol] 109 mmol/L Critically high 98-107 [facility] Comment on above: Performed By: #### B MP #### [facility] [address] [place] [address] Dr. Carolina Rojo CO2 [Moles/Vol] 19.2 mmol/L Critically low 21.0-32.[address] [facility] Comment on above: Performed By: #### B MP #### [facility] [address] [place] [address] Dr. Carolina Rojo Creatinine [Mass/Vol] 0.76 mg/dL Normal 0.55-1.02 [facility] Comment on above: Performed By: #### B MP #### [facility] [address] [address] [address] Carolina Rojo EGFR-AF AFGHAN >60 Normal >=60 [facility] Comment on above: Performed By: #### B MP #### [facility] [address] [address] [address] Carolina Rojo EGFR-NON AF AFGHAN >60 Normal >=60 [facility] Comment on above: Performed By: #### B MP #### [facility] [address] [address] [address] Carolina Rojo Glucose [Mass/Vol] 86 mg/dL Normal 74-106 [facility] Comment on above: Performed By: #### B MP #### [facility] [address] [address] [address] Carolina Rojo Potassium [Moles/Vol] 3.4 mmol/L Critically low 3.5-5.1 [facility] Comment on above: Performed By: #### B MP #### [facility] [address] [address] [address] Carolina Rojo Sodium [Moles/Vol] 141 mmol/L Normal 136-145 [facility] Comment on above: Performed By: #### B MP #### [facility] [address] [address] [address] Carolina Rojo Urea nitrogen [Mass/Vol] 12.0 mg/dL Normal 7.0-18.0 [facility] Comment on above: Performed By: #### B MP #### [facility] [address] [address] [address] Carolina Rojo Urea nitrogen/Creatinine [Mass ratio] 15.8 mg/mg Normal [facility] Comment on above: Performed By: #### B MP #### [facility] [address] [address] [address] Carolina Rojo URINE MICROSCOPIC ONLYon AMORPHOUS CRYSTALS FEW Normal [facility] Comment on above: Performed By: #### C BC #### [facility] [address] [address] [address] Carolina Rooj BACTERIA SMALL Abnormal NONE SEEN [facility] Comment on above: Performed By: #### C BC #### [facility] [address] [place] [address] Dr. Carolina Rojo Bacteria identified Cx Nom (U) INDICATED Normal [facility] Comment on above: Performed By: #### C BC #### [facility] [address] [place] [address] Dr. Carolina Rojo CAST NONE SEEN Normal NONE SEEN [facility] Comment on above: Performed By: #### C BC #### [facility] [address] [place] [address] Dr. Carolina Rojo Crystals LM Nom (Urine sed) SEEN Abnormal NONE SEEN [facility] Comment on above: Performed By: #### C BC #### [facility] [address] [place] [address] Dr. Carolina Rojo Epithelial cells LM Ql (Urine sed) FEW Abnormal NONE SEEN /RARE [facility] Comment on above: Performed By: #### C BC #### [facility] [address] [place] [address] Dr. Carolina Rojo MUCOUS SMALL Abnormal NONE SEEN [facility] Comment on above: Performed By: #### C BC #### [facility] [address] [place] [address] Dr. Carolina Rojo RBC 5-10 Abnormal 0-[address] [facility] Comment on above: Performed By: #### C BC #### [facility] [address] [place] [address] Dr. Carolina Rojo WBC 0-2 Abnormal NONE SEEN [facility] Comment on above: Performed By: #### C BC #### [facility] [address] [place] [address] Dr. Carolina Rojo Urinalysis - AUTOMATEDon Appearance (U) Cloudy [employer] Other Bilirubin Ql (U) Negative [employer] Other Color (U) Dark Yellow [employer] Other Glucose Ql (U) Negative [employer] Other Hemoglobin Ql (U) Small [place] [employer] Other Ketones Ql (U) Trace [employer] Other Leukocyte esterase Test strip Ql (U) Trace [employer] Other Nitrite Ql (U) Negative [employer] Other pH (U) 6.0 [pH] [employer] Other Protein Ql (U) Trace [employer] Other Specific gravity (U) [Rel density] >=1.030 [employer] Other Urobilinogen (U) [Mass/Vol] 0.2 mg/dL [employer] Other Urinalysis - AUTOMATED [employer] Other Urine Cultureon 08-16-2022 Bacteria identified Cx Nom (U) 15,000 colonies/ml mixed bacterial skin contaminants 2 Days PERFORMED BY: [place] [id number] PATHOLOGIST [employer] BUILDER ELVA MCCLURE M.D. [facility] Comment on above: Performed By: #### C UU #### [address] Urine culture routineOrdered By: Kena Snider on 08-16-2022 Bacteria identified Cx Nom (U) 2 Days [facility] Office Visit (Neuro-General) on 03-13-2022 Follow-up visit [...] for prevention. Please call our office at [phone] to leave a message with my city secretary if you have any questions or concerns. Please contact me on the Follow TopLog application if you cannot reach me through [...] issues with magnesium and other electrolytes. Seeing [employer] Analyst who is recommending going off of the Topamax. She notes that there are 3 medications she would need to start in order to continue with the Topamax. Notes that she felt really horrible on the doxepin in the past. Migraine occurs right sided religious. Associated nausea, light and noise sensitivity. Triggers [...] Mar 13 2022 9:56AM EST (Author) Normal [facility] Visit (Neuro-General) on 03-01-2022 Follow-up visit [...] needed Sumatriptan injection. Migraine occurs right sided religious. Associated nausea, light and noise sensitivity. Has Zofran but has not needed with quick action of Rizatriptan. Triggers are overheating and over exercising. Continues Topiramate 150mg at HS. Denies tingling hands or feet, denies cognitive fog. Sleeping well. 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 [...] 02-27-2022 Albumin [Mass/Vol] 4.0 g/dL Normal 2.9-4.4 [facility] Comment on above: Performed By: #### I FEPEFL #### [facility] [address] [address] [address] Carolina Rojo Albumin/Globulin [Mass ratio] 1.4 {ratio} Normal 0.7-1.7 [facility] Comment on above: Performed By: #### I FEPEFL #### [facility] [address] [address] [address] Carolina Rojo Kjfku-8-Pawxrgby 0.3 g/dL Normal 0.0-0.4 [facility] Comment on above: Performed By: #### I FEPEFL #### [facility] [address] [address] [address] Carolina Rojo Ytqiz-3-Uxkzxxmd 0.7 g/dL Normal 0.4-1.0 [facility] Comment on above: Performed By: #### I FEPEFL #### [facility] [address] [address] [address] Carolina Rojo Beta Globulin 1.0 g/dL Normal 0.7-1.3 [facility] Comment on above: Performed By: #### I FEPEFL #### [facility] [address] [address] [address] Carolina Rojo Free [place] Lt Chains,S 16.2 mg/L Normal 3.3-19.4 [facility] Comment on above: Performed By: #### I FEPEFL #### [facility] [address] [address] [address] Carolina Rojo Free [place] Lt Chains,S 10.7 mg/L Normal 5.7-26.3 [facility] Comment on above: Performed By: #### I FEPEFL #### [facility] [address] [place] [address] Dr. Carolina Rojo Gamma Globulin 1.0 g/dL Normal 0.4-1.8 [facility] Comment on above: Performed By: #### I FEPEFL #### [facility] [address] [place] [address] Dr. Carolina Rojo Globulin (S) [Mass/Vol] 3.0 g/dL Normal 2.2-3.9 [facility] Comment on above: Performed By: #### I FEPEFL #### [facility] [address] [place] [address] Dr. Carolina Rojo Immunofixation Result, Serum Comment Normal [facility] Comment on above: Result Comment: No m onoclonality detected. Performed By: #### I FEPEFL #### [facility] [address] [place] [address] Dr. Carolina Rojo Immunoglobulin A, Qn, Serum 76 mg/dL Critically low 87-[address] [facility] Comment on above: Performed By: #### I FEPEFL #### [facility] [address] [place] [address] Dr. Carolina Rojo Immunoglobulin G, Qn, Serum 945 mg/dL Normal 586-1602 [facility] Comment on above: Performed By: #### I FEPEFL #### [facility] [address] [place] [address] Dr. Carolina Rojo Immunoglobulin M, Qn, Serum 178 mg/dL Normal 26-[address] [facility] Comment on above: Performed By: #### I FEPEFL #### [facility] [address] [place] [address] Dr. Carolina Rojo [place]/Lambda Ratio, S 1.51 Normal 0.26-1.65 [facility] Comment on above: Performed By: #### I FEPEFL #### [facility] [address] [place] [address] Dr. Carolina Rojo M-Phu Not Observed Normal Not Observed [facility] Comment on above: Performed By: #### I FEPEFL #### [facility] [address] [address] [address] Carolina Rojo PDF . Normal [facility] Comment on above: Performed By: #### I FEPEFL #### [facility] [address] [place] [address] Dr. Carolina Rojo Please note: Comment Normal [facility] Comment on above: Result Comment: Prot ein electrophoresis scan will follow via computer, mail, or radio electronics officer delivery. Performed By: #### I FEPEFL #### [facility] [address] [place] [address] Dr. Carolina Rojo Protein [Mass/Vol] 7.0 g/dL Normal 6.0-8.5 [facility] Comment on above: Performed By: #### I FEPEFL #### [facility] [address] [place] [address] Dr. Carolina Rojo CHLORIDE URINE RANDOMon 0 Chloride, Urine 160 mmol/L Normal Not Estab. [facility] Comment on above: Performed By: #### C LRU #### [facility] [address] [place] [address] Dr. Carolina Rojo MAGNESIUMon 02-24-2022 Magnesium [Mass/Vol] 1.6 mg/dL Critically low 1.8-2.[address] [facility] Comment on above: Performed By: #### K U, SAM #### [facility] [address] [place] [address] Dr. Carolina Rojo POTASSIUM URINEon 02-24-2022 UR POTASSIUM 32.1 mmol/L Normal [facility] Comment on above: Performed By: #### K U, SAM #### [facility] [address] [address] [address] Carolina Rojo RENAL FUNCTION PANELon 02-24 Albumin [Mass/Vol] 4.1 g/dL Normal 3.4-5.0 [facility] Comment on above: Performed By: #### K U, SAM #### [facility] [address] [place] [address] Dr. Carolina Rojo Calcium [Mass/Vol] 9.2 mg/dL Normal 8.5-10.1 [facility] Comment on above: Performed By: #### K U, SAM #### [facility] [address] [place] [address] Dr. Carolina Rojo Chloride [Moles/Vol] 106 mmol/L Normal 98-[address] [facility] Comment on above: Performed By: #### K U, SAM #### [facility] [address] [place] [address] Dr. Carolina Rojo CO2 [Moles/Vol] 22.7 mmol/L Normal 21.0-32.0 [facility] Comment on above: Performed By: #### K U, SAM #### [facility] [address] [place] [address] Dr. Carolina Rojo Creatinine [Mass/Vol] 0.51 mg/dL Critically low 0.55-1.02 [facility] Comment on above: Performed By: #### K U, SAM #### [facility] [address] [place] [address] Dr. Carolina Rojo EGFR-AF AFGHAN >60 Normal >=60 [facility] Comment on above: Performed By: #### K U, SAM #### [facility] [address] [place] [address] Dr. Carolina Rojo EGFR-NON AF AFGHAN >60 Normal >=[address] [facility] Comment on above: Performed By: #### K U, SAM #### [facility] [address] [place] [address] Dr. Carolina Rojo Glucose [Mass/Vol] 88 mg/dL Normal 74-106 [facility] Comment on above: Performed By: #### K U, SAM #### [facility] [address] [place] [address] Dr. Carolina Rojo Phosphate [Mass/Vol] 4.4 mg/dL Normal 2.6-4.7 [facility] Comment on above: Performed By: #### K U, SAM #### [facility] [address] [place] [address] Dr. Carolina Rojo Potassium [Moles/Vol] 3.4 mmol/L Critically low 3.5-5.[address] [facility] Comment on above: Performed By: #### K U, SAM #### [facility] [address] [place] [address] Dr. Carolina Rojo Sodium [Moles/Vol] 139 mmol/L Normal 136-145 [facility] Comment on above: Performed By: #### K U, SAM #### [facility] [address] [place] [address] Dr. Carolina Rojo Urea nitrogen [Mass/Vol] 13.0 mg/dL Normal 7.0-18.[address] [facility] Comment on above: Performed By: #### K U, SAM #### [facility] [address] [place] [address] Dr. Carolina Rojo SODIUM RANDOM URINEon 2021 Sodium (U) [Moles/Vol] 171 mmol/L Critically high 30-90 [facility] Comment on above: Performed By: #### K U, SAM #### [facility] [address] [place] [address] Dr. Carolina Rojo UA RANDOM W/MICROSCOPICon BACTERIA NONE SEEN Normal NONE SEEN [facility] Comment on above: Performed By: #### C BC #### [facility] [address] [place] [address] Dr. Carolina Rojo Bilirubin Ql (U) Negative Normal NEGATIVE [facility] Comment on above: Performed By: #### C BC #### [facility] [address] [place] [address] Dr. Carolina Rojo CAST NONE SEEN Normal NONE SEEN [facility] Comment on above: Performed By: #### C BC #### [facility] [address] [place] [address] Dr. Carolina Rojo Clarity (U) CLEAR Normal CLEAR [facility] Comment on above: Performed By: #### C BC #### [facility] [address] [place] [address] Dr. Carolina Rojo Color (U) LT. YELLOW Normal YELLOW [facility] Comment on above: Performed By: #### C BC #### [facility] [address] [place] [address] Dr. Carolina Rojo Crystals LM Nom (Urine sed) NONE SEEN Normal NONE SEEN [facility] Comment on above: Performed By: #### C BC #### [facility] [address] [place] [address] Dr. Carolina Rojo Epithelial cells LM Ql (Urine sed) RARE Normal NONE SEEN /RARE [facility] Comment on above: Performed By: #### C BC #### [facility] [address] [place] [address] Dr. Carolina Rojo Glucose Ql (U) Negative Normal NEGATIVE [facility] Comment on above: Performed By: #### C BC #### [facility] [address] [place] [address] Dr. Carolina Rojo Hemoglobin Ql (U) TRACE-INTACT Abnormal NEGATIVE [facility] Comment on above: Performed By: #### C BC #### [facility] [address] [place] [address] Dr. Carolina Rojo Ketones Ql (U) Negative Normal NEGATIVE [facility] Comment on above: Performed By: #### C BC #### [facility] [address] [place] [address] Dr. Carolina Rojo LEUKOCYTES Negative Normal NEGATIVE [facility] Comment on above: Performed By: #### C BC #### [facility] [address] [place] [address] Dr. Carolina Rojo MUCOUS NONE SEEN Normal NONE SEEN [facility] Comment on above: Performed By: #### C BC #### [facility] [address] [place] [address] Dr. Carolina Rojo Nitrite Ql (U) Negative Normal NEGATIVE [facility] Comment on above: Performed By: #### C BC #### [facility] [address] [place] [address] Dr. Carolina Rojo pH (U) 7.0 [pH] Normal 5-9 [facility] Comment on above: Performed By: #### C BC #### [facility] [address] [place] [address] Dr. Carolina Rojo RBC 0-2 Normal 0-2 [facility] Comment on above: Performed By: #### C BC #### [facility] [address] [place] [address] Dr. Carolina Rojo SPEC GRAVITY 1.015 Normal 1.005-<=1.025 [facility] Comment on above: Performed By: #### C BC #### [facility] [address] [place] [address] Dr. Carolina Rojo UA PROTEIN Negative Normal NEGATIVE/ TRACE [facility] Comment on above: Performed By: #### C BC #### [facility] [address] [place] [address] Dr. Carolina Rojo Urobilinogen Qn (U) 0.2 {Daysi'U}/dL Normal 0.2 - 1. 0 [facility] Comment on above: Performed By: #### C BC #### [facility] [address] [place] [address] Dr. Carolina Rojo WBC 0-2 Abnormal NONE SEEN [facility] Comment on above: Performed By: #### C BC #### [facility] [address] [place] [address] Dr. Carolina Rojo URINE T PROTEIN CREAT RATIOo n 02-24-2022 Protein (U) [Mass/Vol] 19.5 mg/dL Critically high <=12.0 [facility] Comment on above: Performed By: #### C BC #### [facility] [address] [place] [address] Dr. Carolina Rojo UR PROT CREAT RAT 0.24 Normal [facility] Comment on above: Performed By: #### C BC #### [facility] [address] [address] [address] Carolina Rojo URINE CREAT 80.38 mg/dL Normal 20.00-300.00 [facility] Comment on above: Performed By: #### C BC #### [facility] [address] [address] [address] Carolina Rojo PROF CHEM 8 (BAS METB)on Anion gap [Moles/Vol] 17.0 mmol/L Normal [facility] Comment on above: Performed By: #### B MP #### [facility] [address] [place] [address] Dr. Carolina Rojo Calcium [Mass/Vol] 8.5 mg/dL Normal 8.5-10.1 [facility] Comment on above: Performed By: #### B MP #### [facility] [address] [address] [address] Carolina Rojo Chloride [Moles/Vol] 109 mmol/L Critically high 98-107 [facility] Comment on above: Performed By: #### B MP #### [facility] [address] [place] [address] Dr. Carolina Rojo CO2 [Moles/Vol] 17.5 mmol/L Critically low 21.0-32.0 [facility] Comment on above: Performed By: #### B MP #### [facility] [address] [place] [address] Dr. Carolina Rojo Creatinine [Mass/Vol] 0.48 mg/dL Critically low 0.55-1.02 [facility] Comment on above: Performed By: #### B MP #### [facility] [address] [place] [address] Dr. Carolina Rojo EGFR-AF AFGHAN >60 Normal >=60 [facility] Comment on above: Performed By: #### B MP #### [facility] [address] [place] [address] Dr. Carolina Rojo EGFR-NON AF AFGHAN >60 Normal >=60 [facility] Comment on above: Performed By: #### B MP #### [facility] [address] [address] [address] Carolina Rojo Glucose [Mass/Vol] 88 mg/dL Normal 74-106 [facility] Comment on above: Performed By: #### B MP #### [facility] [address] [address] [address] Carolina Rojo Potassium [Moles/Vol] 3.5 mmol/L Normal 3.5-5.1 [facility] Comment on above: Performed By: #### B MP #### [facility] [address] [place] [address] Dr. Carolina Rojo Sodium [Moles/Vol] 140 mmol/L Normal 136-145 [facility] Comment on above: Performed By: #### B MP #### [facility] [address] [place] [address] Dr. Carolina Rojo Urea nitrogen [Mass/Vol] 12.0 mg/dL Normal 7.0-18.0 [facility] Comment on above: Performed By: #### B MP #### [facility] [address] [place] [address] Dr. Carolina Rojo Urea nitrogen/Creatinine [Mass ratio] 25.0 mg/mg Normal [facility] Comment on above: Performed By: #### B MP #### [facility] [address] [place] [address] Dr. Carolina Rojo ZAYNAB EIA W/REFLEX 9 BIOMARKER Son 11-27-2021 ZAYNAB Direct Negative Normal Negative [facility] Comment on above: Performed By: #### A NARF9 #### [facility] [address] [place] [address] Dr. Carolina Rojo CBC AUTO DIFFon 11-24-2021 BASO # 0.1 103/ul Normal 0.0-0.1 [facility] Comment on above: Performed By: #### C BC #### [facility] [address] [place] [address] Dr. Carolina Rojo Basophils/100 WBC (Bld) 0.9 % Normal 0.2-2.0 [facility] Comment on above: Performed By: #### C BC #### [facility] [address] [place] [address] Dr. Carolina Rojo EO # 0.3 103/ul Normal 0.0-0.7 [facility] Comment on above: Performed By: #### C BC #### [facility] [address] [place] [address] Dr. Carolina Rojo Eosinophils/100 WBC (Bld) 4.7 % Normal 0.9-7.0 [facility] Comment on above: Performed By: #### C BC #### [facility] [address] [place] [address] Dr. Carolina Rojo Erythrocyte distribution width (RBC) [Ratio] 13.5 % Normal 11.0-15.0 [facility] Comment on above: Performed By: #### C BC #### [facility] [address] [place] [address] Dr. Carolina Rojo Hematocrit (Bld) [Volume fraction] 38.1 % Normal 36.0-48.0 [facility] Comment on above: Performed By: #### C BC #### [facility] [address] [place] [address] Dr. Carolina Rojo Hemoglobin (Bld) [Mass/Vol] 12.8 g/dL Normal 12.0-16.0 [facility] Comment on above: Performed By: #### C BC #### [facility] [address] [place] [address] Dr. Carolina Rojo IG # 0.03 10e3/ul Normal 0.00-0.03 [facility] Comment on above: Performed By: #### C BC #### [facility] [address] [place] [address] Dr. Carolina Rojo IG % 0.5 % Normal 0.0-0.5 [facility] Comment on above: Performed By: #### C BC #### [facility] [address] [place] [address] Dr. Carolina Rojo LYMPH # 2.3 103/ul Normal 1.2-3.[address] [facility] Comment on above: Performed By: #### C BC #### [facility] [address] [place] [address] Dr. Carolina Rojo Lymphocytes/100 WBC (Bld) 40.3 % Normal 20.5-60.0 [facility] Comment on above: Performed By: #### C BC #### [facility] [address] [place] [address] Dr. Carolina Rojo MANUAL DIFF REQ NO Normal [facility] Comment on above: Performed By: #### C BC #### [facility] [address] [place] [address] Dr. Carolina Rojo MCH (RBC) [Entitic mass] 29.9 pg Normal 26.7-34.0 [facility] Comment on above: Performed By: #### C BC #### [facility] [address] [place] [address] Dr. Carolina oRjo MCHC (RBC) [Mass/Vol] 33.6 g/dL Normal 29.9-35.[address] [facility] Comment on above: Performed By: #### C BC #### [facility] [address] [place] [address] Dr. Carolina Rojo MCV (RBC) [Entitic vol] 89.0 fL Normal 81.0-99.0 [facility] Comment on above: Performed By: #### C BC #### [facility] [address] [place] [address] Dr. Carolina Rojo MONO # 0.4 103/ul Normal 0.3-0.[address] [facility] Comment on above: Performed By: #### C BC #### [facility] [address] [place] [address] Dr. Carolina Rojo Monocytes/100 WBC (Bld) 7.3 % Normal 1.7-12.[address] [facility] Comment on above: Performed By: #### C BC #### [facility] [address] [place] [address] Dr. Carolina Rojo NEUT # 2.6 103/ul Normal 1.4-6.[address] [facility] Comment on above: Performed By: #### C BC #### [facility] [address] [address] [address] Carolina Rojo Neutrophils/100 WBC (Bld) 46.3 % Normal 43.0-75.0 [facility] Comment on above: Performed By: #### C BC #### [facility] [address] [address] [address] Carolina Rojo Platelet mean volume (Bld) [Entitic vol] 10.4 fL Normal 9.5-13.5 [facility] Comment on above: Performed By: #### C BC #### [facility] [address] [address] [address] Carolina Rojo PLT 284 103/ul Normal 150-[address] [facility] Comment on above: Performed By: #### C BC #### [facility] [address] [place] [address] Dr. Carolina Rojo RBC 4.28 106/ul Normal 4.20-5.40 [facility] Comment on above: Performed By: #### C BC #### [facility] [address] [place] [address] Dr. Carolina Rojo WBC 5.6 103/ul Normal 4.0-11.0 [facility] Comment on above: Performed By: #### C BC #### [facility] [address] [place] [address] Dr. Carolina Rojo CRPon 11-24-2021 CRP [Mass/Vol] mg/L Normal <=1.0 [facility] Comment on above: Performed By: #### C BC #### [facility] [address] [place] [address] Dr. Carolina Rojo LIPID PROFILEon 11-24-2021 CHOL-HDL RATIO NORM SEE BELOW Normal [facility] Comment on above: Result Comment: 3.3 - 4.4 LOW RISK 4.4 - 7.1 AVERAGE RISK 7.1 - 11.0 MODERATE RISK >11.0 HIGH RISK Performed By: #### C BC #### [facility] [address] [place] [address] Dr. Carolina Rojo Cholesterol [Mass/Vol] 170 mg/dL Normal <=[address] [facility] Comment on above: Performed By: #### C BC #### [facility] [address] [place], [place] [address] Dr. Carolina Rojo Cholesterol in HDL [Mass/Vol] 46 mg/dL Normal 40-60 [facility] Comment on above: Performed By: #### C BC #### [facility] [address] [place], [place] [address] Dr. Carolina Rojo Cholesterol in LDL [Mass/Vol] 112.6 mg/dL Normal [facility] Comment on above: Performed By: #### C BC #### [facility] [address] [address] [address] Carolina Rojo Cholesterol.total/C holesterol in HDL [Mass ratio] 3.7 {ratio} Normal [facility] Comment on above: Performed By: #### C BC #### [facility] [address] [address] [address] Carolina Rojo HDL NORMAL > or = 60 mg/dl - LO W CARDIOVASCULAR RISK <40 mg/dl - HIGH CARDIOVASCULAR RISK Normal [facility] Comment on above: Performed By: #### C BC #### [facility] [address] [address] [address] Carolina Rojo LDL CALC NORMAL SEE BELOW Normal [facility] Comment on above: Result Comment: <100 mg/dl OPTIMAL 100 - 129 mg/dl NEAR OR ABOVE OPTIMAL 130 - 159 mg/dl BORDERLINE HIGH 160 - 189 mg/dl HIGH >190 mg/dl VERY HIGH Performed By: #### C BC #### [facility] [address] [address] [address] Carolina Rojo Triglyceride [Mass/Vol] 57 mg/dL Normal <=[address] [facility] Comment on above: Performed By: #### C BC #### [facility] [address] [address] [address] Carolina Rojo VLDL CALC 11.4 mg/dL Normal [facility] Comment on above: Performed By: #### C BC #### [facility] [address] [address] [address] Carolina Rojo PROF 14(COMP METB)on 08-05-2 022 Albumin [Mass/Vol] 4.2 g/dL Normal 3.4-5.0 [facility] Comment on above: Performed By: #### C BC #### [facility] [address] [place] [address] Dr. Carolina Rojo Albumin/Globulin [Mass ratio] 1.3 {ratio} Normal [facility] Comment on above: Performed By: #### C BC #### [facility] [address] [address] [address] Carolina Rojo ALP [Catalytic activity/Vol] 52 U/L Normal 46-116 [facility] Comment on above: Performed By: #### C BC #### [facility] [address] [place] [address] Dr. Carolina Rojo ALT [Catalytic activity/Vol] 17 U/L Normal 14-59 [facility] Comment on above: Performed By: #### C BC #### [facility] [address] [place] [address] Dr. Caroilna Rojo Anion gap [Moles/Vol] 15.7 mmol/L Normal [facility] Comment on above: Performed By: #### C BC #### [facility] [address] [place] [address] Dr. Carolina Rojo AST [Catalytic activity/Vol] 9 U/L Critically low 15-37 [facility] Comment on above: Performed By: #### C BC #### [facility] [address] [place] [address] Dr. Carolina Rojo Bilirubin [Mass/Vol] 0.7 mg/dL Normal 0.2-1.0 [facility] Comment on above: Performed By: #### C BC #### [facility] [address] [place] [address] Dr. Carolina Rojo Calcium [Mass/Vol] 9.1 mg/dL Normal 8.5-10.1 [facility] Comment on above: Performed By: #### C BC #### [facility] [address] [place] [address] Dr. Carolina Rojo Chloride [Moles/Vol] 109 mmol/L Critically high 98-107 [facility] Comment on above: Performed By: #### C BC #### [facility] [address] [address] [address] Carolina Rojo CO2 [Moles/Vol] 20.2 mmol/L Critically low 21.0-32.0 [facility] Comment on above: Performed By: #### C BC #### [facility] [address] [address] [address] Carolina Rojo Creatinine [Mass/Vol] 0.61 mg/dL Normal 0.55-1.02 [facility] Comment on above: Performed By: #### C BC #### [facility] [address] [address] [address] Carolina Rojo EGFR-AF AFGHAN >60 Normal >=60 [facility] Comment on above: Performed By: #### C BC #### [facility] [address] [place] [address] Dr. Carolina Rojo EGFR-NON AF AFGHAN >60 Normal >=60 [facility] Comment on above: Performed By: #### C BC #### [facility] [address] [place] [address] Dr. Carolina Rojo Globulin (S) [Mass/Vol] 3.3 g/dL Normal [facility] Comment on above: Performed By: #### C BC #### [facility] [address] [place] [address] Dr. Carolina Rojo Glucose [Mass/Vol] 95 mg/dL Normal 74-106 [facility] Comment on above: Performed By: #### C BC #### [facility] [address] [place] [address] Dr. Carolina Rojo Potassium [Moles/Vol] 3.9 mmol/L Normal 3.5-5.[address] [facility] Comment on above: Performed By: #### C BC #### [facility] [address] [place] [address] Dr. Carolina Rojo Protein [Mass/Vol] 7.5 g/dL Normal 6.4-8.2 [facility] Comment on above: Performed By: #### C BC #### [facility] [address] [address] [address] Carolina Rojo Sodium [Moles/Vol] 141 mmol/L Normal 136-145 [facility] Comment on above: Performed By: #### C BC #### [facility] [address] [place] [address] Dr. Carolina Rojo Urea nitrogen [Mass/Vol] 11.0 mg/dL Normal 7.0-18.0 [facility] Comment on above: Performed By: #### C BC #### [facility] [address] [place] [address] Dr. Carolina Rojo Urea nitrogen/Creatinine [Mass ratio] 18.0 mg/mg Normal [facility] Comment on above: Performed By: #### C BC #### [facility] [address] [place] [address] Dr. Carolina Rojo SED RATE [facility] 2021 SED RATE 3 mm/hr Normal <=20 [facility] Comment on above: Performed By: #### S EDR #### [facility] [address] [place] [address] Dr. Carolina Rojo T4on 11-24-2021 T4 [Mass/Vol] 8.70 ug/dL Normal 4.80-13.90 [facility] Comment on above: Performed By: #### K U, SAM #### [facility] [address] [place] [address] Dr. Carolina Rojo TSHon 11-24-2021 TSH 2.585 uIU/mL Normal 0.358-3.740 [facility] Comment on above: Performed By: #### C BC #### [facility] [address] [place] [address] Dr. Carolina Rojo Vital Signs Date Time Vital Sign Value Performing Clinician Facility 06-10-2023 15:44-0500 Body mass index (BMI) [Ratio] 25.39 kg/m2 Mavis Martínez MD Work Phone: [facility] 06-10-2023 15:44-0500 Body temperature 98.6 [degF] Mavis Martínez MD Work Phone: [facility] 06-10-2023 15:44-0500 Body weight 58.97 kg Mavis Martínez MD Work Phone: [facility] 06-10-2023 15:44-0500 Diastolic blood pressure 68 mm[Hg] Mavis Martínez MD Work Phone: [facility] 06-10-2023 15:44-0500 Systolic blood pressure 98 mm[Hg] Mavis Martínez MD Work Phone: [facility] 05-06-2023 13:30-0500 Blood Pressure Location Celestino PRATIMA [facility] 05-06-2023 13:30-0500 Diastolic blood pressure 84 mm[Hg] Celestino SERRANO [facility] 05-06-2023 13:30-0500 Systolic blood pressure 122 mm[Hg] Celestinodeon SERRANO [facility] 12-06-2022 13:00-0400 Body height 152.4 cm Ella Gustafson Other [facility] [employer] Other 12-06-2022 13:00-0400 Body mass index (BMI) [Ratio] 26.48 kg/m2 Ella Gustafson Other [employer] Other 12-06-2022 13:00-0400 Body temperature 97.7 [degF] Ella Gustafson Other [employer] Other 12-06-2022 13:00-0400 Body weight 61.51 kg Ella Gustafson Other [employer] Other 12-06-2022 13:00-0400 Diastolic blood pressure 70 mm[Hg] Ella Gustafson Other [employer] Other 12-06-2022 13:00-0400 Respiratory rate 18 /min Ella Gustafson Other [employer] Other 12-06-2022 13:00-0400 SaO2% (BldA) [Mass fraction] 100 % Ella Gustafson Other [employer] Other 12-06-2022 13:00-0400 Systolic blood pressure 121 mm[Hg] Ella Gustafson Other [employer] Other 10-29-2022 09:13-0400 Blood Pressure Location Celestino SERRANO [facility] 10-29-2022 09:13-0400 Diastolic blood pressure 82 mm[Hg] Celestino SERRANO [facility] 10-29-2022 09:13-0400 Heart rate 79 /min Celestino SERRANO [facility] 10-29-2022 09:13-0400 Respiratory rate 16 /min Celestino SERRANO [facility] 10-29-2022 09:13-0400 Systolic blood pressure 121 mm[Hg] Celestino SERRANO [facility] 10-13-2022 14:35-0400 Body height 152.4 cm Dai Vaughn Other [employer] Other 10-13-2022 14:35-0400 Body mass index (BMI) [Ratio] 26.36 kg/m2 Dai Vaughn Other [employer] Other 10-13-2022 14:35-0400 Body temperature 97.8 [degF] Dai Vaughn Other [employer] Other 10-13-2022 14:35-0400 Body weight 61.24 kg Dai Vaughn Other [employer] Other 10-13-2022 14:35-0400 Diastolic blood pressure 71 mm[Hg] Dai Vaughn Other [employer] Other 10-13-2022 14:35-0400 Respiratory rate 16 /min Dai Vaughn Other [employer] Other 10-13-2022 14:35-0400 SaO2% (BldA) [Mass fraction] 99 % Dai Vaughn Other [employer] Other 10-13-2022 14:35-0400 Systolic blood pressure 122 mm[Hg] Dai Vaughn Other [employer] Other 08-16-2022 19:00-0400 Body height 152.4 cm Kena Snider Other [employer] Other 08-16-2022 19:00-0400 Body mass index (BMI) [Ratio] 25.39 kg/m2 Kena Snider Other [employer] Other 08-16-2022 19:00-0400 Body temperature 98 [degF] Kena Snider Other [employer] Other 08-16-2022 19:00-0400 Body weight 58.97 kg Kena Snider Other [employer] Other 08-16-2022 19:00-0400 Respiratory rate 18 /min Kena Snider Other [employer] Other 08-16-2022 19:00-0400 SaO2% (BldA) [Mass fraction] 99 % Kena Snider Other [employer] Other 01-15-2022 17:40-0400 Body height 152.4 cm Keyana Akila Other [employer] Other 01-15-2022 17:40-0400 Body mass index (BMI) [Ratio] 27.53 kg/m2 Keyana Akila Other [employer] Other 01-15-2022 17:40-0400 Body temperature 97.2 [degF] Keyana Akila Other [employer] Other 01-15-2022 17:40-0400 Body weight 63.96 kg Keyana Akila Other [employer] Other 01-15-2022 17:40-0400 Diastolic blood pressure 82 mm[Hg] Keyana Akila Other [employer] Other 01-15-2022 17:40-0400 Respiratory rate 18 /min Keyana Akila Other [employer] Other 01-15-2022 17:40-0400 SaO2% (BldA) [Mass fraction] 99 % Keyana Akila Other [employer] Other 01-15-2022 17:40-0400 Systolic blood pressure 130 mm[Hg] Keyana Akila Other [employer] Other 10-29-2019 15:03-0400 BMI (Body Mass Index) 28.71 kg/m2 Mavis Martínez UW-Bosaucyuq-Oatchb 170 DO Work Phone: 10-29-2019 15:03-0400 Body Temperature 97.9 [degF] Mavis Martínez MV-Vjzvyexmx-Pp nicolas 170 DO Work Phone: Comment on above: Method: Tympanic 10-29-2019 15:03-0400 Body weight 66.68 kg Mavis Martínez NW-Oehoeyslj-Ffw rocky 170 DO Work Phone: 10-29-2019 15:03-0400 BP Diastolic 80 mm[Hg] Mavis Martínez OB-Hlwmikhdb-Fex rocky 170 DO Work Phone: Comment on above: Location: LUE; Position: Sitting 10-29-2019 15:03-0400 BP Systolic 110 mm[Hg] Mavis Martínez SW-Jqyeoremx-Pqe rocky 170 DO Work Phone: Comment on above: Location: LUE; Position: Sitting 10-29-2019 15:03-0400 BSA (Body Surface Area) 1.64 m2 Mavis Martínez DF-Dfcnikbls-Gigzoj 170 DO Work Phone: 10-29-2019 15:03-0400 Height 152.4 cm Mavis Martínez ZX-Bstotxbft-Nhy rocky 170 DO Work Phone: 10-29-2019 15:03-0400 Pulse (Heart Rate) 68 /min Mavis aMrtínez MP-Neurology- [place] 170 DO Work Phone: Comment on above: Location: L Radial; Quality: Regular 10-29-2019 15:03-0400 Respiratory Rate 16 /min Mavis Martínez WT-Mgvwdhvws-Wd nicolas 170 DO Work Phone: Comment on above: Quality: Normal Encounters Encounter Date Encounter Type Care Provider Facility Start: 10-21-2023 ambulatory Celestino Ayoub ty:RASHEL Jaffe Start: 09-03-2023 ambulatory KAREN Ayoub ty:RASHEL Jaffe Start: 08-28-2023 ambulatory Celestino SERRANO Facili ty:RASHEL Haque Start: 07-09-2023 End: 07-09-2023 ambulatory SILVESTRE STANFORDITTI Not Available Start: 06-10-2023 End: 06-10-[address] [facility] Start: 06-10-2023 End: 06-10-2023 Office outpatient visit 15 minutes Mavis Martínez MD Work Phone: [facility] Comment on above: Chronic migraine wit hout aura, with intractable migraine, so stated, with status migrainosus Start: 05-09-2023 End: 05-09-2023 ambulatory SILVESTRE A PETITTI Not Available Start: 05-06-2023 End: 05-06-2023 ambulatory Celestino SERRANO Facility:[facility] Start: 05-06-2023 End: 05-06-2023 Patient encounter procedure Celestino SERRANO [facility] Start: 03-05-2023 End: 03-05-2023 ambulatory CRISTI A MARTINEZ Not Available Start: 01-31-2023 End: 01-31-[address] [facility] Start: 01-31-2023 End: 01-31-2023 Office outpatient visit 25 minutes Mavis Martínez MD Work Phone: [facility] Comment on above: Chronic migraine wit hout aura, with intractable migraine, so stated, with status migrainosus; Nausea Start: 12-10-2022 End: 12-10-2022 ambulatory Ella Gustafson Other [employer] Other Start: 12-10-2022 Telephone encounter [facility]a [facility] [address] Start: 12-06-2022 End: 12-06-2022 ambulatory Ella Gustafson Facility:[facility] Start: 12-06-2022 Office outpatient vi sit 15 minutes Ella [facility] [place] Start: 12-06-2022 End: 12-06-2022 ambulatory PHYSICIAN NO [facility] Work Phone: Start: 12-06-2022 End: 12-06-2022 Departed Referred PHYSICIAN NO [facility] [place] Work Phone: Start: 11-13-2022 End: 11-13-2022 ambulatory Celestino SERRANO Facility[facility] Start: 11-01-2022 End: 11-01-2022 ambulatory Celestino Ash SERRANO Facility::[id number] Start: 10-29-2022 End: 10-29-2022 ambulatory Celestino SERRANO Facility:[facility] Start: 10-29-2022 End: 10-29-2022 Patient encounter procedure Celestino Ash PRATIMA [facility] Start: 10-14-2022 End: 10-14-2022 ambulatory PHYSICIAN NO [facility] Facility:[facility] Start: 10-14-2022 End: 10-14-2022 ambulatory PHYSICIAN NO [facility] Work Phone: Start: 10-14-2022 End: 10-14-2022 Departed Referred PHYSICIAN NO [facility] [place] Work Phone: Start: 10-13-2022 End: 10-13-2022 ambulatory Dai Vaughn Other [employer] Other Start: 10-13-2022 Office outpatient vi sit 15 minutes Dai Vaughn [facility] [place] Start: 08-24-2022 End: 08-25-2022 ambulatory STEVEN MEYER . Facility: Start: 08-16-2022 End: 08-16-2022 Departed Referred KELLE Snider Work Phone: [facility] [place] Work Phone: Start: 08-16-2022 End: 08-16-2022 ambulatory Kena Snider [facility] Work Phone: Start: 08-16-2022 Office outpatient vi sit 15 minutes Kena Snider [facility] [place] Start: 04-12-2022 Telephone encounter aKren Harmon Work Phone: DJ-Tvlnifony-Viunaqoz 204 DO Work Phone: Start: 03-13-2022 Phys/qhp telephone evaluation 21-30 min Karen Harmon Work Phone: YA-Ryypanbrc-Yljumrsm 204 DO Work Phone: Start: 03-13-2022 ambulatory Ms. LUNG DAVIDSON JESÚS Faci lity:[id number] Start: 03-01-2022 Office outpatient vi sit 15 minutes Karen Harmon Work Phone: XS-Dzdgzduve-Ufofll 170 DO Work Phone: Start: 03-01-[address] MAVIS MARTÍNEZ Facility:[id number] Start: 02-24-2022 End: 02-25-2022 ambulatory KEYANA AKILA Facility:[facility] Start: 01-15-2022 End: 01-15-2022 ambulatory Keyana Akila Other [facility] [employer] Other Start: 01-15-2022 Office outpatient ne w 30 minutes Keyana Akila [facility] Start: 11-29-2021 End: 11-30-[address] CRISTI MARTINEZ Facility:[facility] Start: 11-27-2021 Encounter for genera l adult medical examination without abnormal findings ITALIA PERI [facility] Start: 11-24-2021 End: 11-25-[address] CRISTI MARTINEZ Facility:[facility] Start: 11-24-2021 End: 11-25-2021 Encounter for general adult medical examination without abnormal findings DR CRISTI MARTINEZ Facility:[facility] Start: 02-28-2021 Phys/qhp telephone evaluation 11-20 min Karen Harmon Work Phone: RC-Nzdqgrmcd-Zpymzyke 204 DO Work Phone: Start: 12-02-2020 AUDIT Karen V Luna hran Work Phone: VJ-Pzwapscyi-Yxzrna 170 DO Work Phone: Start: 11-03-2020 Office outpatient vi sit 15 minutes Karen Harmon Work Phone: QN-Mxtmhiqtd-Coiyvq 170 DO Work Phone: Procedures Date Procedure [...] tube Celestino SERRANO Start: 04-22-2004 Appendectomy Celestino ALEX ZENDEJASRuben Appendectomy Mavis Martínez Comment on above: 2005; Colonoscopy Celestino SERRANO Ligation of fallopian tube D susan Martínez Comment on above: 2012; Reduction of closed patellar dislocation Mavis Martínez Comment on above: september 2004; Plan of Treatment Date Care Activity Detail Author Start: 2034 Zoster Vaccines (1 o f 2) Zoster Vaccines (1 of 2) [facility] Start: 12-02-2023 End: 12-02-2023 Patient encounter procedure 12/02/2023 4:30 PM EDT Office Visit [facility] [address] [place] [address] Mavis Martínez MD [address] [place] [address] [facility] Start: 01-31-2023 GAVIOTA, Provider : Mavis Martínez, Status: Pen, Time: 1:30 PM GAVIOTA Provider: Mavis Martínez, Status: Pen, Time: 1:30 PM KV-Xrwqcbvxz-Fizmjva n 204 DO Work Phone: Start: 12-21-2022 Influenza vaccination Influenz a Vaccine (#1) [facility] Start: 12-06-2022 Bacteria identified in Urine by Culture [facility] Start: 10-14-2022 Bacteria identified in Urine by Culture [facility] Start: 08-16-2022 Bacteria identified in Urine by Culture Urine Culture [facility] Start: 02-22-2021 FUVGENERAL, Provider : Mavis Martínez, Status: Pen, Time: 2:30 PM FUVGENERAL, Provider: Mavis Martínez, Status: Pen, Time: 2:30 PM PQ-Kmrwfxajx-Xxxoix 170 DO Work Phone: Start: 10-29-2019 Mra head w/o contrst material MRA Head without Contrast XM-Kjohzoscb-Fmumtf 170 DO Work Phone: Start: 10-29-2019 Mri brain brain stem w/o w/contrast material MRI Brain w/wo Contrast RM-Gdqieefbc-Dvfgfn 170 DO Work Phone: Start: 2006 DTaP/Tdap/Td Vaccine s (1 - Tdap) DTaP/Tdap/Td Vaccines (1 - Tdap) [facility] Start: 2005 Screening for malignant neoplasm of cervix [facility] Start: 2002 Diabetes mellitus screening Diabetes Screening [facility] Start: 2002 Hepatitis C screening Hepatitis C Sc reening [facility] Start: 1985 MMR Vaccines (1 of 1 - Standard series) MMR Vaccines (1 of 1 - Standard series) [facility] Start: 1985 Varicella vaccination Varicell a Vaccines (1 of 2 - 2-dose childhood series) [facility] Start: 06-27-1985 COVID-19 Vaccine (#1) COVID-19 Vacci ne (#1) [facility] Start: 1984 Hepatitis B Vaccines (1 of 3 - 3-dose series) Hepatitis B Vaccines (1 of 3 - 3-dose series) [facility] Start: 1984 HIV screening HIV Screening [facility] Start: 1984 Lipid panel Lipid Panel [facility] Start: 1984 Yearly Adult Physical Yearly Adult P hysical [facility] SE-Munvusfjl-Tb nicolas 170 DO Work Phone: NEGATED: Highlighted row has been ruled out! Planned Goals not documented JB-Nruagaqlx-Pfqhjk 170 DO Work Phone: Immunizations Immunization Date Immunization Notes Care Provider Fa cility 02-20-2011 influenza virus vaccine, split virus (incl. purified surface antigen) Keyana Wilburn Other [employer] Other Payers Date Payer Category Payer Private Health Insurance [id number] 2023 Unknown [id number] 2022 Self-pay [id number] 2021 Unknown 2021 Unknown [id number] 1984 Unknown [id number] 2.16.840.1.841528.3.579.2.35 6 1984 Unknown [id number] 2.840.1.596357.3.579.2.35 6 1984 Unknown [id number] 2.840.1.119330.3.579.2.59 3 1984 Unknown [id number] 2.16.840.1.753609.3.579.2.59 3 1984 Unknown [id number] 2.16.840.1.889712.3.579.2.59 3 1984 Unknown [id number] 2.16840.1.627290.3.579.2.59 3 1984 Unknown [id number] 2.16.840.1.020344.3.579.2.12 44 1984 Unknown [id number] 2.16.840.1.084301.3.579.2.12 44 1984 Unknown [id number] 2.16.840.1.177296.3.579.2.12 59 1984 Unknown [id number] 2.16.840.1.967674.3.579.2.12 59 1984 Unknown [id number] 2.16.840.1.340471.3.579.2.12 59 1984 Unknown [id number] 2.16.840.1.693032.3.579.2.72 7 1984 Unknown [id number] 2.16.840.1.934416.3.579.2.72 7 1984 Unknown [id number] 2.16.840.1.105645.3.579.2.72 7 1984 Unknown [id number] 2.16840.1.412647.3.579.2.72 7 1984 Unknown [id number] 2.16.840.1.519336.3.579.2.72 7 1984 Unknown [id number] 2.16.840.1.159419.3.579.2.72 7 1984 Unknown [id number] 2.16.840.1.397951.3.579.2.72 7 1959 Unknown [id number] 1959 Unknown [id number] Private Health Insurance [facility] [id number] Unknown [id number] 2.16.840.1.828338.19 Unknown [employer]/BS [id number] Unknown [id number] 2.16.840.1.253708.3.579.2.53 1 Unknown [id number] 2.16840.1.110900.3.579.2.53 1 Unknown [id number] 2.16.840.1.109321.3.579.2.53 1 Social History Date Type Detail Facility Assertion Tobacco smoking consumption unknown (finding) SR-Jzwlfbsdt-Imnldn 170 DO Work Phone: Start: 01-31-2023 Consumes alcohol occasionally Consumes alcohol occasionally TB-Woemriqsq-Wjenzd 170 DO Work Phone: Start: 01-31-2023 Sex Assigned At F [facility] Start: 06-26-2019 End: 01-31-2023 Tobacco smoking status NHIS Never smoked tobacco (finding) [facility] Start: 1985 Sex Assigned At Female F [facility] Start: 01-31-2023 Tobacco use and exposure Smokeless tobacco non-user [facility] Work Phone: Start: 01-31-2023 End: 06-10-2023 Alcohol intake Ex-drinker (finding) [facility] Work Phone: Start: 1985 Sex Assigned At Not on file [facility] Work Phone: Start: 01-21-2023 End: 01-31-2023 Exposure to SARS-CoV-2 (event) Unable to assess [facility] Start: 05-31-2023 End: 06-10-2023 Exposure to SARS-CoV-2 (event) Not sure [facility] Work Phone: NEGATED: Highlighted rowStart: NINF History of tobacco use Passive smoker [facility] Work Phone: Functional Status Date Assessment Result Facility 05-06-2023 Functional Status N/A [facility] 10-29-2022 Functional Status N/A [facility] NEGATED: Highlighted row Functional performance Functional status health issues are not documented Disease XP-Nkesxiimd-Geqohm 170 DO Work Phone: Mental Status Date Assessment Result Facility NEGATED: Highlighted row Cognitive function [Interpretation] Cognitive status health issues are not documented Disease QW-Lzneojqec-Tdxkuv 170 DO Work Phone: Clinical Notes 09-04-2020 [...] off of the topamax. Is seeing a board operator. Went down from 150 to 100. See [...] awaiting MD moya documented in this encounter [facility] Work Phone: 05-06-2023 Hospital Discharg e [...] you may eat and drink normally. Take aqxa-xeg-hmowegi and prescription medicines only as told by your health care provider. Let your health care provider know about any medicines that you are taking, including hamf-svo-futghcv medicines, vitamins, herbs, and supplements. Choose a [...] provider. Document Revised: 10/13/2021 Document Reviewed: 10/13/2021 [employer] Patient Education 2022 [employer]. Follow Up Care 11/13/2022 13:41:07 With:PRATIMA MELLO, Celestino Aleman, URL Address: [facility] [address] , [place] [address]- [phone] When: Unknown Comments:3-4 mos w/ KUB and metabolic workup [facility] 01-31-2023 History of Presen t illness [...] off of the topamax. Is seeing a board operator. Went down from 150 to 100. See [...] awaiting MD auth documented in this encounter [facility] Work Phone: 01-31-2023 Instructions Mavis Martínez MD - 01/31/2023 2:00 PM EDT Try to get CGRP approved due to kidney issues on topamax and extreme drive for botox. documented in this encounter [facility] Work Phone: 12-06-2022 Evaluation note Encounter [...] understanding and is agreeable to treatment plan. [employer] Other 07-25-2023 Note [id number]:127[facility] 11-13-2022 NoteCustom Cystoscopy with Stent Removal [...] if you have a fever over 100 degrees.[facility] 10-29-2022 Hospital Discharge instructions Patient Education [...] Follow these instructions at home: Medicines Take azrt-hly-cfmyvwz and prescription medicines only as told by [...] provider. Document Revised: 12/27/2021 Document Reviewed: 12/11/2021 [employer] Patient Education 2022 [employer]. Follow Up Care 08/27/2022 09:52:31 With:PRATIMA MELLO, Celestino Aleman, URL Address: [facility] [address], [place] [address]- [phone] When: Unknown Comments:KIMANI [facility] 06-24-2023 Evaluation note* Encounter Date Diagnosis Assessment [...] Tylenol or Motrin as needed for pain. [facility] Other 04-27-2023 Evaluation note* Encounter Date Diagnosis [...] Pt understood and agreed to treatment plan. [employer] Other 11-22-2022 Chief complaint Narrative - Reported* An interactive audio and video telecommunication system which permits real time communications between the patient (at the originating site) and provider (at the distant site) was utilized to providethis telehealth service. * Verbal consent was requested and obtained from MARIA VICTORIA LI on this date, 03/13/2022 09:30 AM , fora telehealth visit. * Headaches JL-Ohmcbozxh-Dodetorm 204 DO Work Phone: [phone]) 676-335811-10-2022 Chief complaint Narrative - Reported* Neurologic Evaluation. [...] * Follow up migraine management * yearly [facility] 170 DO Work Phone: 1(277) 138-882711-10-2022 History of Present illness Narrative* Experiencing 1-2 migraine per month. * Treats with Rizatriptan and works in 10m min. Never has to repeat. * Has not needed Sumatriptan injection. * Migraine occurs right sided religious. * Associated nausea, light and noise sensitivity. Has Zofran but has not needed with quick action of Rizatriptan. * Triggers are overheating and over exercising. * Continues Topiramate 150mg at HS. Denies tingling hands or feet, denies cognitive fog. * Sleeping well. * Denies anxiety or depression. 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 [employer] Other 11-09-2021 History of Present illness Narrative* [...] This note was partially generated using the [employer] voice recognition system. There may be typographical errors, spelling, or punctuation errors that were not corrected prior to committing the note tothe medical record. YM-Ztsnznlss-Bjxptoii 204 DO Work Phone: 1(170) 167-617107-15-2021 Chief complaint Narrative - Reported* Neurologic Evaluation. [...] telehealth visit. * Follow up migraine management UQ-Pluppvccn-Jrxtdg 170 DO Work Phone: 1(423) 300-374605-16-2021 History of Present illness Narrative* Past 2 [...] skin only has had a tubal ligation PT-Ustvkqrzx-Gkccro 170 DO Work Phone: Evaluation + Plan note No data available for this section [facility] evaluation + Plan note Future Appointments Appointment Date:08/28/2023 03:15:00 PM Scheduled Provider:Celestino SERRANO MD Location:[facility] Appointment Type:URO Office Visit [facility] evalwrdqyn noteNo assessment information available [facility] Work Phone: Evaluation noteNo InformationNortThe [facility] [employer] Other Evaluation note* Diagnosis Chronic migraine without aura, with intractable migraine, so stated, with status migrainosus Nausea Nausea alone documented in this encounter [facility] Work Phone: Evaluation note* Diagnosis Chronic migraine without aura, with intractable migraine, so stated, with status migrainosus documented in this encounter [facility] Work Phone: History general Narrative - Reported* Type Description Date Medical History migraines Medical History medicine Medical History hypercholesterolemia Surgical History appendectomy 2004 Surgical History 2 left knee surgeries 2001 & 05 Surgical History C SECTION/ TUBLIGATION 11/2012 Hospitalization History SEE ABOVE SURGERY [employer] Other History general Narrative - Reported* Type Description Date Medical History migraines Medical History medicine Medical History hypercholesterolemia Surgical History appendectomy 2004 Surgical History 2 left knee surgeries 2001 & 20 05 Surgical History C SECTION/ TUBLIGATION 11/2012 Surgical History lithotripsy 10/2022 Hospitalization History SEE ABOVE SURGERY [facility] [employer] Other History of Present illness Narrative* Patient with history significant for chronic without aura here to discuss headaches. * Was having bloodwork issues with magnesium and other electrolytes. Seeing [employer] Analyst who is recommending going off of the Topamax. She notes that there are 3 medications she would need to start in order to continue with the Topamax. Notes that she felt really horrible on the doxepin in the past. * Migraine occurs right sided religious. * Associated nausea, light and noise sensitivity. [...] * Doxepin sedating, slept through the day. VT-Hzshlfcsv-Kikhvauo 204 DO Work Phone: progress note No data available for this section [facility] reason for referral (narrative)* Consultation (Routine) - Authorized Specialty Diagnoses / Procedures Referred By Lissa t Referred To Contact Neurology Diagnoses Chronic migraine without aura, with intractable migraine, so stated, with status migrainosus Procedures Follow Up In Neurology Mavis Martínez MD [address] [address] Referral ID Status Reason Start Date Expiration Date V isits Requested Visits Authorized [id number] Authorized 01/31/2023 07/30/2023 1 1 [facility] Work Phone: Family History No Family [...] Neurology Mavis Martínez MD [address] [address] Referral ID Status Reason Start Date Expiration Date V isits Requested Visits Authorized [id number] Authorized 01/31/2023 07/30/2023 1 1 INFORMATION SOURCE (unrecogn ized section and content) DATE CREATED AUTHOR 03/13/2022 [facility] DATE CREATED AUTHOR AUTHOR'S ORGANIZ ATION 03/13/2022 [facility] DATE CREATED AUTHOR AUTHOR'S ORGANIZ ATION 08/29/2022 [facility] DATE CREATED AUTHOR AUTHOR'S ORGANIZ ATION 12/15/2022 [facility] DATE CREATED AUTHOR AUTHOR'S ORGANIZ ATION 06/11/2023 [facility] tals Ambulatory DATE CREATED AUTHOR AUTHOR'S ORGANIZ ATION 07/10/2023 [facility] EPIC DATE CREATED AUTHOR AUTHOR'S ORGANIZ ATION 09/25/2023 [facility] Care Teams (unrecognized sec tion and content) [...] Dates Ella Gustafson APRN Attending Provider Active Senior System Operator Relationship Specialty Start Date End Date Karen Harmon MD [address] [place] [address] PCP - General 10/04/1998 Senior System Operator Relationship Specialty Start Date End Date Karen Harmon MD [address] [place] [address] PCP - General 10/04/1998 Goals (unrecognized section [...] BE BASED ON THE PRIMARY CLINICAL RECORDS. [employer] [facility]. provides no warranty or guarantee of the accuracy or completeness of information in this document.
== END 2023-10-10 10:07 | disposition home or self-care (01) ==
LOC: RAD 10:07
PROVIDERS: PCP Family Medicine; Visit Provider Urology
DX: N20.0 Calculus of kidney (principal)
CPT/HCPCS: 74018